=== PATIENT | female | born 1945 | race Caucasian/White ===

== ENCOUNTER → 2016-07-15 | Outpatient (CLI) | payer OTHER ==
[~2016-07-15] MED LIST: APIX1TAB3 PO; B COTAB PO; CRDCD180 PO; FLEC100T21 PO; IBUP-103 PO; MCR5 PO; MISCCAP55 PO; PRAV20TA PO; RANI150T3 PO
[2016-07-15 18:01] LABS: BLOOD UREA NITROGEN 21 mg/dl (7-18); BUN/CREATININE RATIO 18.7 (10-20); CALCIUM 8.8 mg/dl (8.5-10.1); CARBON DIOXIDE 22 mmol/L (21-32); CHLORIDE 109 mmol/L (98-107); GLUCOSE 135 mg/dl (70-99); POTASSIUM 3.7 mmol/L (3.5-5.1); SODIUM 142 mmol/L (136-145); URIC ACID 3.8 mg/dl (2.6-7.2)
[2016-07-15 18:03] LABS: PHOSPHORUS 2.6 mg/dl (2.5-4.9)
[2016-07-15 18:05] LABS: HEMATOCRIT 39.4 % (37-47); MEAN CELL VOLUME 83.5 fL (80-100); MEAN CORPUSCULAR HEMOGLOBIN 28.4 pg (25-34); MEAN PLATELET VOLUME 9.9 fL (7.4-10.4); PLATELET COUNT 213 K/uL (130-400); RED BLOOD COUNT 4.72 M/uL (4.2-5.4); WHITE BLOOD COUNT 10.49 K/uL (4.8-10.8)
== END | disposition home or self-care (01) ==
LOC: C.LABMFLN 11:51
PROVIDERS: ATTEND Internal Medicine Nephrology
DX: N17.9 Acute kidney failure, unspecified (principal)

== ENCOUNTER → 2016-07-27 | Outpatient (CLI) | payer OTHER ==
[2016-07-27 13:37] LABS: URINE APPEARANCE CLEAR (CLEAR); URINE BILIRUBIN NEG (NEG); URINE COLOR YELLOW; URINE NITRITE NEG (NEG); URINE PH 5.5 (4.5-7.5); UROBILINOGEN NEG (NEG)
[2016-07-27 13:52] LABS: MANUAL MICROSCOPIC REQUIRED? NO; REVIEW REQ? NO; URINE PROTIEN/CREAT RATIO 0.3 (0-0.2); URINE TOTAL PROTEIN 21.3 mg/dl (0-11.9)
== END | disposition home or self-care (01) ==
LOC: C.LABMFLN 10:44
PROVIDERS: ATTEND Internal Medicine Nephrology
DX: N17.9 Acute kidney failure, unspecified (principal)

== ENCOUNTER → 2016-08-03 | Outpatient (CLI) | payer OTHER ==
[2016-08-03 17:45] LABS: BLOOD UREA NITROGEN 18 mg/dl (7-18); BUN/CREATININE RATIO 14.6 (10-20); CALCIUM 8.8 mg/dl (8.5-10.1); CARBON DIOXIDE 28 mmol/L (21-32); CHLORIDE 107 mmol/L (98-107); GLUCOSE 214 mg/dl (70-99); PHOSPHORUS 2.6 mg/dl (2.5-4.9); POTASSIUM 4.1 mmol/L (3.5-5.1); SODIUM 144 mmol/L (136-145)
== END | disposition home or self-care (01) ==
LOC: C.LABMFLN 08:11
PROVIDERS: ATTEND Internal Medicine Nephrology
DX: N17.9 Acute kidney failure, unspecified (principal)

== ENCOUNTER → 2016-10-13 | Outpatient (CLI) | payer OTHER ==
[2016-10-13 13:39] LABS: BLOOD UREA NITROGEN 17 mg/dl (7-18); CARBON DIOXIDE 30 mmol/L (21-32); CHLORIDE 105 mmol/L (98-107); GLUCOSE 291 mg/dl (70-99); PHOSPHORUS 2.4 mg/dl (2.5-4.9); POTASSIUM 3.9 mmol/L (3.5-5.1); SODIUM 141 mmol/L (136-145)
[2016-10-13 13:49] LABS: ESTIMATED AVERAGE GLUCOSE 209 mg/dl; HA1C FLAG Normal (Normal)
== END | disposition home or self-care (01) ==
LOC: C.LABMFLN 07:54
PROVIDERS: ATTEND Family Medicine
DX: E11.22 Type 2 diabetes mellitus with diabetic chronic kidney disease (principal); N18.3 Chronic kidney disease, stage 3 (moderate)

== ENCOUNTER → 2016-10-21 | Outpatient (CLI) | payer OTHER ==
[2016-10-21 19:08] LABS: BLOOD UREA NITROGEN 18 mg/dl (7-18); BUN/CREATININE RATIO 16.4 (10-20); CALCIUM 9.1 mg/dl (8.5-10.1); CARBON DIOXIDE 26 mmol/L (21-32); CHLORIDE 110 mmol/L (98-107); GLUCOSE 158 mg/dl (70-99); PHOSPHORUS 2.9 mg/dl (2.5-4.9); POTASSIUM 3.9 mmol/L (3.5-5.1); SODIUM 143 mmol/L (136-145)
== END | disposition home or self-care (01) ==
LOC: C.LABMFLN 09:27
PROVIDERS: ATTEND Family Medicine
DX: I10 Essential (primary) hypertension (principal)

== ENCOUNTER → 2017-01-12 | Outpatient (CLI) | payer OTHER ==
[2017-01-12 13:26] LABS: BLOOD UREA NITROGEN 21 mg/dl (7-18); BUN/CREATININE RATIO 19.2 (10-20); CALCIUM 8.9 mg/dl (8.5-10.1); CARBON DIOXIDE 27 mmol/L (21-32); CHLORIDE 110 mmol/L (98-107); GLUCOSE 131 mg/dl (70-99); POTASSIUM 4.3 mmol/L (3.5-5.1); SODIUM 142 mmol/L (136-145)
[2017-01-12 13:27] LABS: PHOSPHORUS 2.3 mg/dl (2.5-4.9)
[2017-01-12 13:54] LABS: ESTIMATED AVERAGE GLUCOSE 166 mg/dl; HA1C FLAG Normal (Normal)
== END | disposition home or self-care (01) ==
LOC: C.LABMFLN 09:22
PROVIDERS: ATTEND Family Medicine
DX: N18.3 Chronic kidney disease, stage 3 (moderate) (principal); E11.9 Type 2 diabetes mellitus without complications

== ENCOUNTER → 2017-04-19 | Outpatient (CLI) | payer OTHER ==
[2017-04-19 18:07] LABS: BLOOD UREA NITROGEN 20 mg/dl (7-18); BUN/CREATININE RATIO 15.7 (10-20); CALCIUM 8.9 mg/dl (8.5-10.1); CARBON DIOXIDE 28 mmol/L (21-32); CHLORIDE 109 mmol/L (98-107); GLUCOSE 192 mg/dl (70-99); POTASSIUM 4.2 mmol/L (3.5-5.1); SODIUM 142 mmol/L (136-145)
[2017-04-19 18:18] LABS: PHOSPHORUS 2.7 mg/dl (2.5-4.9)
[2017-04-20 07:44] LABS: ESTIMATED AVERAGE GLUCOSE 171 mg/dl; HA1C FLAG Normal (Normal)
== END | disposition home or self-care (01) ==
LOC: C.LABMFLN 14:27
PROVIDERS: ATTEND Physician Assistant
DX: I10 Essential (primary) hypertension (principal); E11.9 Type 2 diabetes mellitus without complications; N17.9 Acute kidney failure, unspecified

== ENCOUNTER → 2017-07-26 | Outpatient (CLI) | payer OTHER ==
[2017-07-26 12:42] LABS: BASO % 0.6 %; BASO ABS # 0.05 K/uL (0-0.2); EOS % 1.9 %; EOS ABS # 0.17 K/uL (0-0.5); HEMOGLOBIN 12.6 g/dL (12.0-16.0); IG# 0.04 K/uL (0.00-0.02); LYMPH % 19.4 %; LYMPH ABS # 1.76 K/uL (1.2-3.4); MEAN CELL VOLUME 84.3 fL (80-100); MEAN CORPUSCULAR HEMOGLOBIN 27.9 pg (25-34); MEAN CORPUSCULAR HGB CONC 33.2 g/dl (32-36); MEAN PLATELET VOLUME 10.1 fL (7.4-10.4); MONO % 9.2 %; MONO ABS # 0.83 K/uL (0.11-0.59); NEUT % 68.5 %; NEUT ABS # 6.22 K/uL (1.4-6.5); PLATELET COUNT 196 K/uL (130-400); RED CELL DISTRIBUTION WIDTH CV 14.2 % (11.5-14.5); RED CELL DISTRIBUTION WIDTH SD 43.9 fL (36.4-46.3); WHITE BLOOD COUNT 9.07 K/uL (4.8-10.8)
[2017-07-26 13:09] LABS: HEMOGLOBIN A1C 7.9 % (4.5-5.6)
[2017-07-26 13:10] LABS: ALBUMIN 3.4 gm/dl (3.4-5.0); ALT/SGPT 17 U/L (12-78); AST/SGOT 9 U/L (15-37); BLOOD UREA NITROGEN 20 mg/dl (7-18); CALCIUM 8.9 mg/dl (8.5-10.1); CARBON DIOXIDE 26 mmol/L (21-32); CHOLESTEROL 147 mg/dl (0-200); CREATININE 1.07 mg/dl (0.60-1.20); GLUCOSE 154 mg/dl (70-99); POTASSIUM 3.9 mmol/L (3.5-5.1); SODIUM 140 mmol/L (136-145); TOTAL PROTEIN 6.7 gm/dl (6.4-8.2)
[2017-07-26 13:21] LABS: ALKALINE PHOSPHATASE 78 U/L (45-117); LDL CHOLESTEROL CALCULATED 84 mg/dl
== END | disposition home or self-care (01) ==
LOC: C.LABMFLN 10:31
PROVIDERS: ATTEND Family Medicine
DX: E11.22 Type 2 diabetes mellitus with diabetic chronic kidney disease (principal); I48.0 Paroxysmal atrial fibrillation; N18.3 Chronic kidney disease, stage 3 (moderate); E78.00 Pure hypercholesterolemia, unspecified

== ENCOUNTER 2017-09-09 10:51 | Inpatient (IN) | payer OTHER ==
[~2017-09-09] VITALS: Ht 157.5 cm; Wt 91.8 kg
[~2017-09-09 10:51] MED LIST changes: -PRAV20TA PO; -RANI150T3 PO
--- NOTE | 2017-09-09 11:09 | EMERGENCY ROOM VISIT NOTE ---
History Report prepared by Romel: Yann Gonzales Under the Supervision of: Dr. Raudel Bhandari D.O. First contact with patient: 11:00 Chief Complaint: ILLNESS Stated Complaint: NOT FEELING WELL History of Present Illness The patient is a 72 year old female who presents to the Emergency Room with complaints of an unusual chest discomfort that first onset last night. The patient states that she felt generally unwell last night which included feeling "bloated" with pain in her back. The pain in her chest is described as a "heaviness." The patient noted that she has a history of acid reflux, and many of these symptoms feel similar to those previous episodes. The chest heaviness is unusual. She did feel nauseous last night, but did not vomit. She has a history of atrial fibrillation, but no myocardial infarctions. Source of History: patient Onset: Last night Position: chest Quality: other (Heaviness) Associated Symptoms: + nausea, + back pain, No vomiting Review of Systems See HPI for pertinent positives & negatives. A total of 10 systems reviewed and were otherwise negative. Past Medical & Surgical Medical Problems: (1) Atrial fibrillation with RVR (2) Chest pain (3) History of cardioversion Surgical Problems: (1) History of section Family History Diabetes mellitus FHx: heart disease Hypertension Social History Smoking Status: Never Smoker Alcohol Use: none Drug Use: none Marital Status: Housing Status: lives with family Occupation Status: unemployed Current/Historical Medications Scheduled Apixaban (Eliquis), 5 MG PO BID Cyanocobalamin (Vitamin B-12), 500 MCG PO DAILY Diltiazem HCl Coated Beads (Diltiazem HCl ER), 240 MG PO DAILY Flecainide (Tambocor), 100 MG PO BID Furosemide (Lasix), 20 MG PO EDEMA Garlic (Garlic), 400 MG PO DAILY Glipizide (Glucotrol), 10 MG PO AMPM Losartan Potassium (Cozaar), 100 MG PO DAILY Metformin Hcl (Glucophage), 500 MG PO BIDM Nutritional Supplements (Grapeseed Extract), 1 CAP PO DAILY Pravastatin (Pravachol ), 20 MG PO HS Ranitidine Hcl (Zantac), 150 MG PO HS Sitagliptin (Januvia), 50 MG PO DAILY [Menatetreone], 3 TABS PO DAILY Allergies Coded Allergies: Acetaminophen (Verified Allergy, Unknown, ., 3/2/18) Propoxyphene (Verified Allergy, Unknown, Nausea, 09/09/17) Uncoded Allergies: UNKNOWN ANITBIOTICS (Allergy, Unknown, ., 10/18/11) Physical Exam Vital Signs Date Time Temp Pulse Resp B/P (MAP) Pulse Ox O2 Delivery O2 Flow Rate FiO2 09/09/17 12:51 75 24 214/79 95 Room Air 09/09/17 11:16 78 09/09/17 10:55 36.8 85 17 196/94 92 Room Air Physical Exam GENERAL: Patient is awake, alert, and in no acute distress. Patient is resting comfortably and showing no signs of anxiety EYES: The conjunctivae are clear. The pupils are round and reactive. EARS, NOSE, MOUTH AND THROAT: The nose is without any evidence of any deformity. Mucous membranes are moist tongue is midline NECK: The neck is nontender and supple. RESPIRATORY: Normal respiratory effort is noted there is no evidence of wheezing rhonchi or rales CARDIOVASCULAR: Regular rate and rhythm noted to auscultation, systolic murmur appreciated. GASTROINTESTINAL: The abdomen is soft. Bowel sounds are present in all quadrants. Abdomen is nontender MUSCULOSKELETAL/EXTREMITIES: There is no evidence of gross deformity full range of motion is noted in the hips and shoulders SKIN: There is no obvious evidence of any rash. There are no petechiae, pallor or cyanosis noted. NEUROLOGIC: Patient is awake alert and oriented x3 Medical Decision & Procedures ER Provider Diagnostic Interpretation: Radiology results as stated below per my review and radiologist interpretation: CHEST ONE VIEW PORTABLE CLINICAL HISTORY: ABDOMINAL PAIN/GI pain COMPARISON STUDY: 06/23/2015 FINDINGS: Chronic bibasilar atelectatic change. Mild stable cardiomegaly. Lungs otherwise are clear. No evidence of pneumothorax. IMPRESSION: Chronic bibasilar atelectasis. Otherwise negative study. The above report was generated using voice recognition software. It may contain grammatical, syntax or spelling errors. Electronically signed by: Nehemias Alfaro M.D. 09/09/2017 11:37 AM Dictated Date/Time: 09/09/2017 11:36 AM Laboratory Results 09/09/17 11:15 Red Blood Count 4.66, Mean Corpuscular Volume 83.0, Mean Corpuscular Hemoglobin 28.1, Mean Corpuscular Hemoglobin Concent 33.9, Mean Platelet Volume 9.7, Neutrophils (%) (Auto) 72.5, Lymphocytes (%) (Auto) 16.4, Monocytes (%) (Auto) 8.5, Eosinophils (%) (Auto) 1.7, Basophils (%) (Auto) 0.4, Neutrophils # (Auto) 7.16, Lymphocytes # (Auto) 1.62, Monocytes # (Auto) 0.84, Eosinophils # (Auto) 0.17, Basophils # (Auto) 0.04 09/09/17 11:15 Test 09/09/17 11:15 09/09/17 11:20 White Blood Count 9.88 K/uL (4.8-10.8) Red Blood Count 4.66 M/uL (4.2-5.4) Hemoglobin 13.1 g/dL (12.0-16.0) Hematocrit 38.7 % (37-47) Mean Corpuscular Volume 83.0 fL (80-100) Mean Corpuscular Hemoglobin 28.1 pg (25-34) Mean Corpuscular Hemoglobin Concent 33.9 g/dl (32-36) Platelet Count 207 K/uL (130-400) Mean Platelet Volume 9.7 fL (7.4-10.4) Neutrophils (%) (Auto) 72.5 % Lymphocytes (%) (Auto) 16.4 % Monocytes (%) (Auto) 8.5 % Eosinophils (%) (Auto) 1.7 % Basophils (%) (Auto) 0.4 % Neutrophils # (Auto) 7.16 K/uL (1.4-6.5) Lymphocytes # (Auto) 1.62 K/uL (1.2-3.4) Monocytes # (Auto) 0.84 K/uL (0.11-0.59) Eosinophils # (Auto) 0.17 K/uL (0-0.5) Basophils # (Auto) 0.04 K/uL (0-0.2) RDW Standard Deviation 43.9 fL (36.4-46.3) RDW Coefficient of Variation 14.4 % (11.5-14.5) Immature Granulocyte % (Auto) 0.5 % Immature Granulocyte # (Auto) 0.05 K/uL (0.00-0.02) Prothrombin Time 10.0 SECONDS (9.0-12.0) Prothromb Time International Ratio 1.0 (0.9-1.1) Activated Partial Thromboplast Time 27.1 SECONDS (21.0-31.0) Partial Thromboplastin Ratio 1.0 Anion Gap 7.0 mmol/L (3-11) Est Creatinine Clear Calc Drug Dose 42.8 ml/min Estimated GFR () 50.9 Estimated GFR (Non- 43.9 BUN/Creatinine Ratio 15.9 (10-20) Calcium Level 9.1 mg/dl (8.5-10.1) Total Bilirubin 0.3 mg/dl (0.2-1) Direct Bilirubin 0.1 mg/dl (0-0.2) Aspartate Amino Transf (AST/SGOT) 7 U/L (15-37) Alanine Aminotransferase (ALT/SGPT) 18 U/L (12-78) Alkaline Phosphatase 81 U/L (45-117) Total Creatine Kinase 42 U/L (26-192) Creatine Kinase MB 1.2 ng/ml (0.5-3.6) Creatine Kinase MB Ratio 2.9 (0-3.0) Troponin I 0.050 ng/ml (0-0.045) Total Protein 7.2 gm/dl (6.4-8.2) Albumin 3.6 gm/dl (3.4-5.0) Lipase 250 U/L (73-393) Urine Color YELLOW Urine Appearance CLEAR (CLEAR) Urine pH 5.0 (4.5-7.5) Urine Specific [place] 1.007 (1.000-1.030) Urine Protein NEG (NEG) Urine Glucose (UA) NEG (NEG) Urine Ketones NEG (NEG) Urine Occult Blood NEG (NEG) Urine Nitrite NEG (NEG) Urine Bilirubin NEG (NEG) Urine Urobilinogen NEG (NEG) Urine Leukocyte Esterase NEG (NEG) Laboratory results per my review. Medications Administered Medications (Trade) Dose Ordered Sig/Ross Route Start Time Stop Time Status Last Admin Dose Admin Aspirin (Aspirin Chew) 324 mg NOW STAT PO 09/09/17 12:27 09/09/17 12:28 DC 09/09/17 12:54 324 MG Al Hydroxide/Mg Hydroxide (Maalox Susp) 30 ml NOW STAT PO 09/09/17 12:27 09/09/17 12:28 DC 09/09/17 12:54 30 ML ECG Per My Interpretation Indication: chest pain Rate (beats per minute): 72 Rhythm: normal sinus Findings: Q waves (Inferior), ST depression (High Lateral ), other ( Poorbaseline, No PVCs, ) Comparison ECG Date: 06/25/2015 Change: REPEAT SHOWS: NSR 73, NO PVCs, Ash Later ST depression, Inferior Q-waves, No change form initial. ED Course 1101: The patient was evaluated in room C6. A complete history and physical examination were performed. 1227: Ordered Maalox Susp 30 mL PO, Aspirin 324 mg PO. 1249: I discussed the case with Dr. Josh Lambert. he will evaluate the patient for further treatment. 1340: Ordered Heparin Sodium /Dextrose 1. 1430: Ordered Nitroglycerin 1 inch EXT. Medical Decision Differential diagnosis: Etiologies such as cardiac ischemia, aortic dissection, pulmonary embolism, pneumonia, pneumothorax, musculoskeletal, infections, pericarditis, myocarditis , esophageal rupture, gastrointestinal, as well as others were entertained. Nursing notes reviewed. The patient is a 72-year-old female who presented to the emergency department for an evaluation of discomfort in her epigastric region as well as her chest. The patient had significantly improvement of her symptoms. She thought that could be consistent with reflux although she does have an abnormal EKG. Her EKG does not appear to be significantly changed from previous. Her initial cardiac biomarkers did show a mild elevation in her troponin. I discussed the patient's laboratory and radiographic studies with her and her significant other. I also discussed the limitations of the emergency department workup for chest pain with him. Given the patient's age and comorbidities I discussed her case with the on-call [facility] hospitalist. They have agreed to evaluate patient in the emergency department for further management and disposition. Medication Reconcilliation Current Medication List: was personally reviewed by me Blood Pressure Screening Patient's blood pressure: Elevated blood pressure Referred to Hospitalist Consults Time Called: [phone] Consulting Physician: Dr. Josh Lambert Returned Call: [phone] I discussed the case with Dr. Josh Lambert. he will evaluate the patient for further treatment. Impression Primary Impression: Substernal chest pain Additional Impressions: Elevated troponin Abnormal EKG Scribe Attestation The scribe's documentation has been prepared under my direction and personally reviewed by me in its entirety. I confirm that the note above accurately reflects all work, treatment, procedures, and medical decision making performed by me. Departure Information Dispostion Being Evaluated By Hospitalist Prescriptions Diltiazem HCl Coated Beads (Diltiazem HCl ER) 240 Mg Tab 240 MG PO DAILY, #30 TAB Prov: Rj Moreno MD 09/09/17 Referrals Cinthia Rhoades M.D. (PCP) Patient Instructions My [facility] Problem Qualifiers
[2017-09-09] MEDS ORDERED: LOSA1TAB38 PO (11:27)
[2017-09-09] MEDS ORDERED: DILT1TAB50 PO ×2 (11:27→13:19)
--- NOTE | 2017-09-09 11:38 | DIAGNOSTIC IMAGING REPORT ---
CHEST ONE VIEW PORTABLE CLINICAL HISTORY: ABDOMINAL PAIN/GI pain COMPARISON STUDY: 06/23/2015 FINDINGS: Chronic bibasilar atelectatic change. Mild stable cardiomegaly. Lungs otherwise are clear. No evidence of pneumothorax. IMPRESSION: Chronic bibasilar atelectasis. Otherwise negative study. The above report was generated using voice recognition software. It may contain grammatical, syntax or spelling errors. Electronically signed by: Nehemias Alfaro M.D. 09/09/2017 11:37 AM Dictated Date/Time: 09/09/2017 11:36 AM
[2017-09-09 11:43] LABS: BASO % 0.4 %; BASO ABS # 0.04 K/uL (0-0.2); EOS % 1.7 %; EOS ABS # 0.17 K/uL (0-0.5); HEMATOCRIT 38.7 % (37-47); HEMOGLOBIN 13.1 g/dL (12.0-16.0); IG# 0.05 K/uL (0.00-0.02); LYMPH % 16.4 %; LYMPH ABS # 1.62 K/uL (1.2-3.4); MEAN CORPUSCULAR HEMOGLOBIN 28.1 pg (25-34); MEAN CORPUSCULAR HGB CONC 33.9 g/dl (32-36); MEAN PLATELET VOLUME 9.7 fL (7.4-10.4); MONO % 8.5 %; MONO ABS # 0.84 K/uL (0.11-0.59); NEUT % 72.5 %; NEUT ABS # 7.16 K/uL (1.4-6.5); PLATELET COUNT 207 K/uL (130-400); RED CELL DISTRIBUTION WIDTH CV 14.4 % (11.5-14.5); RED CELL DISTRIBUTION WIDTH SD 43.9 fL (36.4-46.3); WHITE BLOOD COUNT 9.88 K/uL (4.8-10.8)
[2017-09-09 11:54] LABS: PTT PATIENT 27.1 SECONDS (21.0-31.0)
[2017-09-09 12:19] LABS: ALBUMIN 3.6 gm/dl (3.4-5.0); CALCIUM 9.1 mg/dl (8.5-10.1); CKMB 1.2 ng/ml (0.5-3.6); CREATININE 1.22 mg/dl (0.60-1.20); TOTAL PROTEIN 7.2 gm/dl (6.4-8.2)
[2017-09-09 12:22] LABS: POTASSIUM 3.9 mmol/L (3.5-5.1)
[2017-09-09] MEDS ORDERED: ALUMINUM/MAGNESIUM SUSP 30 ML UDC PO STA (12:27)
[2017-09-09] MEDS ORDERED: ASPIRIN 324 MG CHEW PO STA (12:27)
--- NOTE | 2017-09-09 13:27 | History and Physical ---
History & Physical Date & Time of Service: Sep 09, 2017 at 13:09 Chief Complaint: Not Feeling Well Primary Care Physician: Ovidio Samayoa M.D. History of Present Illness Source: patient 72yo female with history of long-standing a. fib who presents with various symptoms including abdominal bloating, dyspnea, burping, heaviness in her chest , "burning" sensation in between the scapula, as well as some nausea that started about midnight. These symptoms awoke her from her sleep. The burping and bloating sensation in her abdomen were the worst symptoms. She took some tums with partial relief of the GI symptoms. For dinner last pm she had baked beans, hamburger, and potato salad at 630pm. She was restless throughout the night and awoke again about 4am. At 4am she was dyspneic and actually got out of bed and propped herself up on pillows on the couch to be able to sleep. About 0645am she got up for the day, ate breakfast, and "felt ok." Eating breakfast didn't bother her symptoms. She tried to sweep up around the house but didn't feel good. She got short of breath doing this task. She had associated heaviness in her chest with sweeping the floor. When she stopped the sweeping her symptoms improved. In the last 1-2 months she has had significant fatigue - much more so than usual. She has noted dyspnea with going up a flight of steps which is not typical for her. Past Medical/Surgical History PMH: 1. atrial fibrillation 2. T2DM 3. HTN 4. GERD PSH: 1. multiple cardioversions for a. fib 2. tonsillectomy 3. c/s x 2 4. cataract extraction 5. 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) Immunizations History of Influenza Vaccine: No History of Tetanus Vaccine?: Unknown Tetanus Immunization Date: Sep 17, 2011 History of Pneumococcal: No History of Hepatitis B Vaccine: No Allergies Coded Allergies: Acetaminophen (Verified Allergy, Unknown, ., 09/09/17) Propoxyphene (Verified Allergy, Unknown, Nausea, 09/09/17) Uncoded Allergies: UNKNOWN ANITBIOTICS (Allergy, Unknown, ., 10/18/11) Home Medications Scheduled Apixaban (Eliquis), 5 MG PO BID Cyanocobalamin (Vitamin B-12), 500 MCG PO DAILY Diltiazem HCl Coated Beads (Diltiazem HCl ER), 240 MG PO DAILY Flecainide (Tambocor), 100 MG PO BID Furosemide (Lasix), 20 MG PO EDEMA Garlic (Garlic), 400 MG PO DAILY Glipizide (Glucotrol), 10 MG PO AMPM Losartan Potassium (Cozaar), 100 MG PO DAILY Metformin Hcl (Glucophage), 500 MG PO BIDM Nutritional Supplements (Grapeseed Extract), 1 CAP PO DAILY Pravastatin (Pravachol ), 20 MG PO HS Ranitidine Hcl (Zantac), 150 MG PO HS Sitagliptin (Januvia), 50 MG PO DAILY [Menatetreone], 3 TABS PO DAILY Review of Systems Constitutional: + weakness, + fatigue, No fever, No chills, No weight loss Eyes: No worsening of vision ENT: No hearing loss, No nasal symptoms, No sore throat, No trouble swallowing Respiratory: + cough (dry, occasional), + shortness of breath, + dyspnea on exertion, No sputum, No wheezing Cardiovascular: + chest pain (see HPI), + PND, + edema (occasional ), + palpitations (only with laying on left side), No orthopnea Abdomen: + pain, + nausea, No vomiting, No diarrhea, No GI bleeding Musculoskeletal: No joint pain, No muscle pain Genitourinary - Female: No dysuria Neurologic: No numbness/tingling Psychiatric: No depression symptoms, No anxiety Endocrine: No excessive thirst Hematologic / Lymphatic: No abnormal bleeding/bruising Integumentary: No rash Physical Exam Vital Signs Date Time Temp Pulse Resp B/P (MAP) Pulse Ox O2 Delivery O2 Flow Rate FiO2 09/09/17 12:51 75 24 214/79 95 Room Air 09/09/17 11:16 78 09/09/17 10:55 36.8 85 17 196/94 92 Room Air General Appearance: no apparent distress, + obese Head: normocephalic, atraumatic Eyes: PERRL, + pertinent finding (lens implants b/l) ENT: TMs normal (except left TM not seen due to cerumen), pharynx normal Neck: supple, no adenopathy, thyroid normal, no JVD, no carotid bruits, trachea midline Respiratory/Chest: chest non-tender, lungs clear, normal breath sounds, no respiratory distress, no accessory muscle use Cardiovascular: regular rate, rhythm, no gallop, + systolic murmur (2/6 RUSB with minor radiation to the right carotid region) Abdomen/GI: normal bowel sounds, non tender, soft, no organomegaly, no pulsatile mass Back: normal inspection, no muscle spasm, + pertinent finding (no tenderness with palpation of mid-thoracic region between the scapula) Extremities/Musculoskelatal: + pedal edema (trace b/l ) Neurologic/Psych: no motor/sensory deficits, alert, normal mood/affect, normal reflexes, oriented x 3 Skin: no rash Lymphatic: no adenopathy (cervical ) Diagnostics Laboratory Results Results Past 24 Hours Test 09/09/17 11:15 09/09/17 11:20 Range/Units White Blood Count 9.88 4.8-10.8 K/uL Red Blood Count 4.66 4.2-5.4 M/uL Hemoglobin 13.1 12.0-16.0 g/dL Hematocrit 38.7 37-47 % Mean Corpuscular Volume 83.0 80-100 fL Mean Corpuscular Hemoglobin 28.1 25-34 pg Mean Corpuscular Hemoglobin Concent 33.9 32-36 g/dl Platelet Count 207 130-400 K/uL Mean Platelet Volume 9.7 7.4-10.4 fL Neutrophils (%) (Auto) 72.5 % Lymphocytes (%) (Auto) 16.4 % Monocytes (%) (Auto) 8.5 % Eosinophils (%) (Auto) 1.7 % Basophils (%) (Auto) 0.4 % Neutrophils # (Auto) 7.16 1.4-6.5 K/uL Lymphocytes # (Auto) 1.62 1.2-3.4 K/uL Monocytes # (Auto) 0.84 0.11-0.59 K/uL Eosinophils # (Auto) 0.17 0-0.5 K/uL Basophils # (Auto) 0.04 0-0.2 K/uL RDW Standard Deviation 43.9 36.4-46.3 fL RDW Coefficient of Variation 14.4 11.5-14.5 % Immature Granulocyte % (Auto) 0.5 % Immature Granulocyte # (Auto) 0.05 0.00-0.02 K/uL Prothrombin Time 10.0 9.0-12.0 SECONDS Prothromb Time International Ratio 1.0 0.9-1.1 Activated Partial Thromboplast Time 27.1 21.0-31.0 SECONDS Partial Thromboplastin Ratio 1.0 Sodium Level 140 136-145 mmol/L Potassium Level 3.9 3.5-5.1 mmol/L Chloride Level 106 98-107 mmol/L Carbon Dioxide Level 27 21-32 mmol/L Anion Gap 7.0 3-11 mmol/L Blood Urea Nitrogen 19 7-18 mg/dl Creatinine 1.22 0.60-1.20 mg/dl Est Creatinine Clear Calc Drug Dose 42.8 ml/min Estimated GFR () 50.9 Estimated GFR (Non- 43.9 BUN/Creatinine Ratio 15.9 10-20 Random Glucose 172 70-99 mg/dl Calcium Level 9.1 8.5-10.1 mg/dl Total Bilirubin 0.3 0.2-1 mg/dl Direct Bilirubin 0.1 0-0.2 mg/dl Aspartate Amino Transf (AST/SGOT) 7 15-37 U/L Alanine Aminotransferase (ALT/SGPT) 18 12-78 U/L Alkaline Phosphatase 81 45-117 U/L Total Creatine Kinase 42 26-192 U/L Creatine Kinase MB 1.2 0.5-3.6 ng/ml Creatine Kinase MB Ratio 2.9 0-3.0 Troponin I 0.050 0-0.045 ng/ml Total Protein 7.2 6.4-8.2 gm/dl Albumin 3.6 3.4-5.0 gm/dl Lipase 250 73-393 U/L Urine Color YELLOW Urine Appearance CLEAR CLEAR Urine pH 5.0 4.5-7.5 Urine Specific [place] 1.007 1.000-1.030 Urine Protein NEG NEG Urine Glucose (UA) NEG NEG Urine Ketones NEG NEG Urine Occult Blood NEG NEG Urine Nitrite NEG NEG Urine Bilirubin NEG NEG Urine Urobilinogen NEG NEG Urine Leukocyte Esterase NEG NEG Diagnostic Radiology cxr - IMPRESSION: Chronic bibasilar atelectasis. Otherwise negative study. EKG EKG - my reading - NSR, minimal nonspecific ST changes I & AVL - similar in appearance to EKG from [address] changes seen no a. fib or flutter Impression Assessment and Plan 72yo female with history of a. fib, HTN, hyperlipidemia, GERD, and obesity presenting with <24 hours of dyspnea, chest heaviness, pain in the back, nausea , and fatigue. Symptoms were worse with activity overnight & this am. She has a very strong family history of CAD. Initial troponin is minimally positive. 1. chest discomfort with positive troponin - concerning for unstable angina at the least; cannot r/o early/mild NSTEMI; obviously has multiple CAD risk factors. Fortunately she is chest-pain free at this time and there is no clinical evidence of CHF. I don't think her constellation of symptoms is due to gall bladder disease, GERD , etc. Plan - * tele status * will place on heparin (standard dose, no bolus - will use standard due to a. fib history); hold eliquis * aspirin 325mg given in the ER; then 81mg daily thereafter * continue statin agent * add beta cm (she has not had true allergy to such, but has been beta cm intolerant in the past -- fatigue, etc) * will use coreg (did not tolerate metoprolol) * serial troponins * nitropaste 1 inch q6h * cardiology consult with Dr. Link - will keep NPO in case she needs a procedure today * echocardiogram - assess LV function, wall motion, etc 2. h/o a. fib - in NSR at this time. Cont fleicanide. Cont diltiazem. Holding eliquis; will be on systemic heparin. 3. HTN - uncontrolled; adding nitropaste 1 inch q6h. Adding coreg. Continue all home meds. She will likely required adjustments of the regimen. Uncertain if #1 is causing the uncontrolled HTN (could be vice versa as well). 4. GERD - increase her zantac to 150mg BID. 5. obesity w/ BMI 36 6. hyperlipidemia - had lipids checked in 07/2017 and were stable. Reasonable to repeat them again in the AM. 7. uncontrolled T2DM - hold oral agents except for januvia; add lantus 10 units HS; add novolog with meals/bedtime (correction factor 35, carb ratio 1:12) . BSGs ac/hs. 8. CKD stage 3 - creatinine is at baseline. 9. FEN - lytes are stable; keep NPO just in case for any procedure today o/w AHA/T2DM diet; repeat BMP am. No fluids at this time. Advanced Directives Existing Advance Directive: No Resuscitation Status VTE Prophylaxis Will order VTE Prophylaxis: Yes Note total time about 70 minutes Additional Copies To Cinthia Rhoades M.D.; Ovidio Samayoa M.D.
[2017-09-09] MEDS ORDERED: HEPARIN IV LOW DOSE NO BOLUS SCH (13:40)
[2017-09-09] MEDS ORDERED: ONDANSETRON INJ 2 MG/ML 2 ML VIAL IV PRN (13:45)
[2017-09-09] MEDS ORDERED: MoRPHine SULFATE 4 MG/ML 1 ML CARP\\VIAL IV PRN (13:45)
[2017-09-09] MEDS ORDERED: NITROGLYCERIN 0.4 MG SL PER TAB CHARGE SL PRN (13:45)
[2017-09-09] MEDS ORDERED: MoRPHine SULFATE 2 MG/ML CARP IV PRN (13:45)
[2017-09-09] MEDS ORDERED: ALUMINUM/MAGNESIUM/SIMETH (MAALOX MAX) 30 ML UDC PO PRN (13:45)
[2017-09-09] MEDS ORDERED: MAGNESIUM HYDROXIDE SUSP 30 ML UDC PO PRN (13:45)
[2017-09-09] MEDS: NITROGLYCERIN 2% OINTMENT 30GM TUBE EXT SCH ×2 (13:50→21:32)
[2017-09-09] MEDS: HEPARIN 25,000 UNIT/500ML D5W 500 ML IV PRN ×2 (14:16→16:07)
[2017-09-09] MEDS ORDERED: HydrALAZINE HCL 20 MG/ML VIAL IV. STA (14:54)
[2017-09-09] MEDS ORDERED: CARVEDILOL 3.125 MG TAB PO STA (15:06)
[2017-09-09] MEDS ORDERED: GLUCOSE 40% GEL 15 GM TUBE PO PRN (15:15)
[2017-09-09] MEDS ORDERED: GLUCAGON FOR INJ 1 MG VIAL SQ PRN (15:15)
[2017-09-09] MEDS ORDERED: DEXTROSE 50% 50 ML SYR IV PRN (15:15)
[2017-09-09] MEDS ORDERED: GLUCOSE 10 TABS/TUBE PO PRN (15:15)
[2017-09-09 15:29] VITALS: BP 185/85; PULSE 69; TEMP 36.7; O2SAT 94
[2017-09-09 15:30] VITALS: BP 185/85; PULSE 69; TEMP 36.7; O2SAT 95; Ht 157.5 cm; Wt 91.8 kg
[2017-09-09] MEDS: INSULIN ASPART 100 UNITS/ML 3 ML PEN SC SCH ×2 (16:15→21:00)
[2017-09-09 17:24] VITALS: BP 178/74; PULSE 64
[2017-09-09 19:18] VITALS: BP 165/72; PULSE 68; TEMP 36.8; O2SAT 92
--- NOTE | 2017-09-09 20:07 | Cardiology Consultation ---
Cardiology Consultation Date of Consultation: Sep 09, 2017. Requesting Physician: Josh Reason for Consultation: Chest Pain Pt evaluation today including: conversation w/ patient, physical exam, chart review, lab review, review of studies, review of inpatient medication list, conversation w/ attending History of Present Illness The patient is a 72-year-old woman without a known history of coronary disease who experienced an episode of chest discomfort last evening. Patient went to bed after eating dinner and initially had symptoms epigastric discomfort. This included eructation. This later generalized to include some pain between her scapula and some discomfort in the precordial area. The symptoms appear to have waxed and waned in severity over the course of the evening. Patient could not lie flat due to discomfort. She attempted to lay on her stomach but this made worse as well. Eventually she was able to get some sleep in this morning her symptoms were much improved. However, after some exertion, specifically sweeping, she noticed recurrence of chest discomfort. She discontinued her activity in the symptoms resolved. She has not had any recurrence since that time. She has been ambulatory around her hospital room without recurrent symptoms. In general, she is a very sedentary individual. She keeps busy around the house with cooking and cleaning chores but rarely does any significant walking or exertion. She generally is not limited by dyspnea however. She has not report symptoms of chest discomfort. She is able to ascend 2 flights of stairs at her house without significant symptoms. She does have a history of atrial fibrillation. She recalls her last episode being over 2 years ago. Generally speaking she feels poorly when she has atrial fibrillation and will notice a rapid pulse. She has not noticed this recently. She has not had other symptoms recently such as dizziness or lightheadedness. She has not noticed any lower extremity edema or increasing abdominal girth. She has not suffered syncope. Past Medical/Surgical History Atrial fibrillation Hypertension Cataracts Carotid artery disease Renal insufficiency stage III Gastroesophageal reflux Hyperlipidemia Diabetes mellitus type 2 Past surgical history None Family History Diabetes mellitus FHx: heart disease Hypertension Noncontributory given her advanced age Social History Smoking Status: Never Smoker History of Alcohol Use: No Currently lives independently with her family Review of Systems Cardiac: + see HPI No recent constitutional symptoms such as fevers or chills. All Other Systems: Reviewed and Negative Allergies Coded Allergies: Acetaminophen (Verified Allergy, Unknown, ., 09/09/17) Propoxyphene (Verified Allergy, Unknown, Nausea, 09/09/17) Uncoded Allergies: UNKNOWN ANITBIOTICS (Allergy, Unknown, ., 10/18/11) Medications Current Inpatient Medications Medications (Trade) Dose Ordered Sig/Ross Route Start Time Stop Time Status Last Admin Dose Admin Nitroglycerin (Nitroglycerin 2% Oint) 1 inch Q6 EXT 09/09/17 14:30 10/09/17 14:29 09/09/17 13:50 1 INCH Nitroglycerin (Nitrostat Tab) 0.4 mg Q5M PRN SL 09/09/17 13:45 Morphine Sulfate (MoRPHine SULFATE INJ) 1 mg Q5M PRN IV 09/09/17 13:45 09/23/17 13:44 Morphine Sulfate (MoRPHine SULFATE INJ) 2 mg Q5M PRN IV 09/09/17 13:45 09/23/17 13:44 Aspirin (Ecotrin Tab) 81 mg QAM PO 09/10/17 09:00 10/10/17 08:59 Al Hydrox/Mg Hydrox/Simethicone (Maalox Max Susp) 15 ml Q4H PRN PO 09/09/17 13:45 10/09/17 13:44 Magnesium Hydroxide (Milk Of Magnesia Susp) 30 ml Q12H PRN PO 09/09/17 13:45 10/09/17 13:44 Ondansetron HCl (Zofran Inj) 4 mg Q6H PRN IV 09/09/17 13:45 10/09/17 13:44 Cyanocobalamin (Vitamin B-12 Tab) 500 mcg DAILY PO 09/10/17 09:00 10/10/17 08:59 Flecainide Acetate (Tambocor Tab) 100 mg BID PO 09/09/17 21:00 10/09/17 20:59 Losartan Potassium (coZAAR TAB) 100 mg DAILY PO 09/10/17 09:00 10/10/17 08:59 Pravastatin Sodium (Pravachol Tab) 20 mg HS PO 09/09/17 21:00 10/09/17 20:59 Ranitidine HCl (zANTac TAB) 150 mg BID PO 09/09/17 21:00 10/09/17 20:59 Diltiazem HCl (Cardizem Cd Cap) 240 mg QAM PO 09/10/17 09:00 10/10/17 08:59 Sitagliptin Phosphate (Januvia Tab) 50 mg DAILY PO 09/10/17 09:00 10/10/17 08:59 Insulin Glargine (Lantus Solostar Pen) 10 units HS SC 09/09/17 21:00 10/09/17 20:59 Insulin Aspart (novoLOG ASPART) SLIDING SCALE G... ACHS SC 09/09/17 16:15 10/09/17 16:14 Carvedilol (Coreg Tab) 3.125 mg BID PO 09/09/17 21:00 10/09/17 20:59 Heparin Sodium/ Dextrose 500 ml @ 24 mls/hr [id number] PRN IV 09/09/17 14:15 10/09/17 14:14 09/09/17 16:07 24 MLS/HR Glucose (Glucose 40% Gel) 15-30 GRAMS 15 GRAMS... UD PRN PO 09/09/17 15:15 10/09/17 15:14 Glucose (Glucose Chew Tab) 4-8 Tablets 4 Tabl... UD PRN PO 09/09/17 15:15 10/09/17 15:14 Dextrose (Dextrose 50% 50ML Syringe) 25-50ML OF 50% DW IV FOR... UD PRN IV 09/09/17 15:15 10/09/17 15:14 Glucagon (Glucagon Inj) 1 mg UD PRN SQ 09/09/17 15:15 10/09/17 15:14 Physical Exam Vital Signs Past 12 Hours Date Time Temp Pulse Resp B/P (MAP) Pulse Ox O2 Delivery O2 Flow Rate FiO2 09/09/17 19:18 36.8 68 20 165/72 (103) 92 Room Air 09/09/17 17:24 64 178/74 (108) 09/09/17 15:30 36.7 69 18 185/85 95 Room Air 09/09/17 15:29 36.7 69 18 185/85 (118) 94 Room Air 09/09/17 14:54 66 22 193/70 95 09/09/17 12:51 75 24 214/79 95 Room Air 09/09/17 11:16 78 09/09/17 10:55 36.8 85 17 196/94 92 Room Air She is alert and oriented x3. Mood affect appear normal. She answered all questions appropriately. HEENT: Sclerae are anicteric. Pupils are equal and reactive to light and accommodation. Extraocular movements were intact. Neuro: Cranial nerves intact Neck: Examination of the submandibular region did not reveal any significant lymphadenopathy. Carotids are palpable bilaterally and free of bruits on auscultation. There was no evidence of jugular venous distention. The thyroid was not enlarged. Lungs: Lungs are clear to auscultation bilaterally. There are no rales wheezes or rhonchi. She has normal respiratory effort without use of accessory muscles. There is normal pulmonary excursion. Cardiac: The rhythm was regular. S1 and S2 were normal. Crescendo systolic murmur. The PMI was not markedly displaced on palpation. Abdomen: The abdomen was soft and nontender. Extremities: Patient has bilateral radial pulses that are equal in intensity. There is no evidence cyanosis or clubbing. There was no evidence of significant peripheral edema bilaterally. Skin: There are no rashes noted on examination today. Data Laboratory Results: Last 24 Hours Test 09/09/17 11:15 09/09/17 11:20 09/09/17 16:35 09/09/17 16:54 White Blood Count 9.88 K/uL Red Blood Count 4.66 M/uL Hemoglobin 13.1 g/dL Hematocrit 38.7 % Mean Corpuscular Volume 83.0 fL Mean Corpuscular Hemoglobin 28.1 pg Mean Corpuscular Hemoglobin Concent 33.9 g/dl Platelet Count 207 K/uL Mean Platelet Volume 9.7 fL Neutrophils (%) (Auto) 72.5 % Lymphocytes (%) (Auto) 16.4 % Monocytes (%) (Auto) 8.5 % Eosinophils (%) (Auto) 1.7 % Basophils (%) (Auto) 0.4 % Neutrophils # (Auto) 7.16 K/uL Lymphocytes # (Auto) 1.62 K/uL Monocytes # (Auto) 0.84 K/uL Eosinophils # (Auto) 0.17 K/uL Basophils # (Auto) 0.04 K/uL RDW Standard Deviation 43.9 fL RDW Coefficient of Variation 14.4 % Immature Granulocyte % (Auto) 0.5 % Immature Granulocyte # (Auto) 0.05 K/uL Prothrombin Time 10.0 SECONDS Prothromb Time International Ratio 1.0 Activated Partial Thromboplast Time 27.1 SECONDS Partial Thromboplastin Ratio 1.0 Sodium Level 140 mmol/L Potassium Level 3.9 mmol/L Chloride Level 106 mmol/L Carbon Dioxide Level 27 mmol/L Anion Gap 7.0 mmol/L Blood Urea Nitrogen 19 mg/dl Creatinine 1.22 mg/dl Est Creatinine Clear Calc Drug Dose 42.8 ml/min Estimated GFR () 50.9 Estimated GFR (Non- 43.9 BUN/Creatinine Ratio 15.9 Random Glucose 172 mg/dl Calcium Level 9.1 mg/dl Total Bilirubin 0.3 mg/dl Direct Bilirubin 0.1 mg/dl Aspartate Amino Transf (AST/SGOT) 7 U/L Alanine Aminotransferase (ALT/SGPT) 18 U/L Alkaline Phosphatase 81 U/L Total Creatine Kinase 42 U/L Creatine Kinase MB 1.2 ng/ml Creatine Kinase MB Ratio 2.9 Troponin I 0.050 ng/ml 0.084 ng/ml Total Protein 7.2 gm/dl Albumin 3.6 gm/dl Lipase 250 U/L Urine Color YELLOW Urine Appearance CLEAR Urine pH 5.0 Urine Specific Stanley 1.007 Urine Protein NEG Urine Glucose (UA) NEG Urine Ketones NEG Urine Occult Blood NEG Urine Nitrite NEG Urine Bilirubin NEG Urine Urobilinogen NEG Urine Leukocyte Esterase NEG Bedside Glucose 92 mg/dl Imaging: Chest x-ray was obtained at the time of admission which did not reveal any acute cardiopulmonary disease EKG: Normal sinus rhythm with poor R-wave progression of precordial leads concerning for old anterior myocardial infarction Telemetry reviewed: Normal sinus rhythm Echocardiogram performed 03/18/2016: Normal LV systolic function. Mild aortic stenosis. Mild aortic regurgitation. Mild mitral regurgitation. Mild left ventricular hypertrophy Assessment & Plan 1. Chest pain: Patient's symptoms of chest discomfort are certainly characteristic of cardiac ischemia. The initial symptoms abdominal discomfort with eructation could be seen with inferior ischemia. There was some positional nature to her symptoms. She certainly has risk factors for coronary disease to include hypertension, hyperlipidemia, age and diabetes. Her cardiac biomarkers are very mildly elevated. However, given her extended period of symptoms I would have expected a much higher result. I think it is very possible that her cardiac biomarker elevation is more related to significant hypertension rather than an ischemic event. I would agree with the current plan which is heparinization while we trend her markers. I think an echocardiogram may be helpful to delineate any new wall motion abnormalities. This would also allow us to assess her valvular heart disease. I agree with administration of the beta-cm as prescribed. I would think that if her biomarkers are not more elevated she could be a good candidate for noninvasive testing. I would hold her Eliquis while she is on heparin infusion. 2. Hypertension: Patient has significant hypertension. This may in fact be the etiology of her elevated cardiac biomarkers. I agree with administration of beta-cm, nitro paste and intermittent doses of hydralazine. Another good option would be a nitroglycerin infusion. If these measures fail to reduce her blood pressure significantly would advocate transfer to the intensive care unit for nitroprusside infusion. 3. Atrial fibrillation: Patient currently in sinus rhythm. No symptomatic episodes of atrial fibrillation for several years. She has been maintained on flecainide and diltiazem. I think stress testing in the absence of significant biomarker elevation would also be helpful to determine if continue flecainide use is safe in this 72-year-old woman. She is currently anticoagulated and should continue to be anticoagulated indefinitely. 4. Valvular heart disease: Patient has an element of aortic and mitral valvular disease. This was mild on her echocardiogram in 2016. I think a reassessment for other indications is worthwhile, but we will be able to see any progression with repeat echocardiography.
[2017-09-09 20:15] LABS: PTT PATIENT 38.6 SECONDS (21.0-31.0)
[2017-09-09] MEDS ORDERED: CARVEDILOL 3.125 MG TAB PO SCH (21:00)
[2017-09-09] MEDS: INSULIN GLARGINE SOLOSTAR 100 UNITS/ML 3 ML PEN SC SCH (21:17)
[2017-09-09] MEDS: FLECAINIDE ACETATE 100 MG TAB PO SCH (21:18)
[2017-09-09] MEDS: PRAVASTATIN SOD 20 MG TAB PO SCH (21:18)
[2017-09-09] MEDS: RANITIDINE HCL 150 MG TAB PO SCH (21:18)
[2017-09-09] MEDS ORDERED: HEPARIN IV BOLUS 5,000 UNIT in SYRINGE 0 ML IV SCH (22:00)
[2017-09-09 23:47] VITALS: BP 177/74; PULSE 63; TEMP 36.5; O2SAT 92
[2017-09-10] VITALS (8 sets, daily range): BP systolic 137–227; BP diastolic 71–84; PULSE 64–90; TEMP 36.6–37.1; O2SAT 91–97
[2017-09-10] MEDS: NITROGLYCERIN 2% OINTMENT 30GM TUBE EXT SCH ×2 (01:40→06:14)
[2017-09-10 04:56] LABS: PTT PATIENT 100.5 SECONDS (21.0-31.0)
[2017-09-10] MEDS: INSULIN ASPART 100 UNITS/ML 3 ML PEN SC SCH ×4 (07:00→21:00)
[2017-09-10] MEDS: SITAGLIPTIN 25 MG TAB PO SCH (07:53)
[2017-09-10] MEDS: DILTIAZEM HCL 240 MG CAPCR PO SCH (07:53)
[2017-09-10] MEDS: LOSARTAN POTASSIUM 50 MG TAB PO SCH (07:53)
[2017-09-10] MEDS: FLECAINIDE ACETATE 100 MG TAB PO SCH ×2 (07:54→21:48)
[2017-09-10] MEDS: CYANOCOBALAMIN 500 MCG TAB (VIT B-12) PO SCH (07:54)
[2017-09-10] MEDS: RANITIDINE HCL 150 MG TAB PO SCH ×2 (07:54→21:47)
[2017-09-10] MEDS: ASPIRIN 81 MG ECTAB PO SCH (07:54)
[2017-09-10] MEDS: CARVEDILOL 3.125 MG TAB PO SCH ×2 (09:06→21:48)
--- NOTE | 2017-09-10 10:11 | ECHOCARDIOGRAM REPORT ---
*NOTICE TO RECEIVING CONSTITUTION PARTY AGENCY This information is strictly Confidential and protected under [place] law. [place] law prohibits you from making any further disclosure of this information unless further disclosure is expressly permitted by the written consent of the person to whom it pertains or is authorized by law. A general authorization for the release of medical or other information is not sufficient for this purpose. Hospital accepts no responsibility if the information is made available to any other person, INCLUDING THE PATIENT. Interpretation Summary * Name: IRVIN COOPER Study Date: 09/10/2017 08:13 AM BP: 214/79 mmHg * Patient Location: [facility] HR: 75 * : 1945 (M/d/yyyy) Gender: Female Height: 62 in * Age: 72 yrs Ethnicity: [place] Weight: 197 lb * Ordering Physician: Rj Moreno * Referring Physician: Self, Referred * Performed By: Danyell Cantor RDCS * * Reason For Study: Chest pain * BSA: 1.9 m2 * -- Conclusions -- * The left ventricle is normal in size. * There is mild concentric left ventricular hypertrophy. * Left ventricular systolic function is normal. * Ejection Fraction = 65-70%. * The left ventricular wall motion is normal. * The right ventricle is normal in size and function. * The right ventricular systolic function is normal as assessed by tricuspid annular plane systolic excursion (TAPSE) (normal >1.5 cm). * The left atrium is moderately dilated. * Aortic valve sclerosis mild, without significant aortic valvular stenosis. * Normal inferior vena cava size and collapsability with sniff indicates a normal right atrial pressure of 3 mmHg * Diastolic dysfunction, Grade II, consistent with elevated left atrial pressure. Procedure Details * A complete two-dimensional transthoracic echocardiogram was performed (2D, M-mode, Doppler and color flow Doppler). Left Ventricle * The left ventricle is normal in size. * There is mild concentric left ventricular hypertrophy. * Ejection Fraction = 65-70%. * Left ventricular systolic function is normal. * The left ventricular wall motion is normal. Right Ventricle * The right ventricle is normal in size and function. * The right ventricular systolic function is normal as assessed by tricuspid annular plane systolic excursion (TAPSE) (normal >1.5 cm). Atria * The left atrium is moderately dilated. Mitral Valve * The mitral valve is grossly normal. * There is mild mitral regurgitation. Tricuspid Valve * The tricuspid valve is not well visualized, but is grossly normal. * There is trace tricuspid regurgitation. Aortic Valve * Aortic valve sclerosis mild, without significant aortic valvular stenosis. * Trace aortic regurgitation. Pulmonic Valve * The pulmonic valve is not well seen, but is grossly normal. Great Vessels * The aortic root is normal size. Pericardium/Pleural * There is no pericardial effusion. Great Vessels * Normal inferior vena cava size and collapsability with sniff indicates a normal right atrial pressure of 3 mmHg Left Ventricular Diastolic Function * Diastolic dysfunction, Grade II, consistent with elevated left atrial pressure. MMode 2D Measurements and Calculations IVSd 1.3 cm LVIDd 4.1 cm LVIDs 2.8 cm LVPWd 1.3 cm IVS/LVPW 0.96 FS 30.8 % EDV(Teich) 73.0 ml ESV(Teich) 30.0 ml EF(Teich) 58.9 % EDV(cubed) 67.5 ml ESV(cubed) 22.3 ml EF(cubed) 66.9 % LV mass(C)d 195.0 grams LV mass(C)dI 102.7 grams/m\S\2 SV(Teich) 43.0 ml SI(Teich) 22.7 ml/m\S\2 SV(cubed) 45.1 ml SI(cubed) 23.8 ml/m\S\2 Ao root diam 2.3 cm Ao root area 4.1 cm\S\2 ACS 1.7 cm LA dimension 3.4 cm asc Aorta Diam 3.3 cm LA/Ao 1.5 LVAd ap4 25.6 cm\S\2 LVLd ap4 8.2 cm EDV(MOD-sp4) 68.3 ml EDV(sp4-el) 68.1 ml LVAs ap4 13.1 cm\S\2 LVLs ap4 6.1 cm ESV(MOD-sp4) 24.7 ml ESV(sp4-el) 24.0 ml EF(MOD-sp4) 63.8 % EF(sp4-el) 64.7 % LVAd ap2 28.3 cm\S\2 LVLd ap2 8.3 cm EDV(MOD-sp2) 81.6 ml EDV(sp2-el) 82.1 ml LVAs ap2 15.9 cm\S\2 LVLs ap2 7.0 cm ESV(MOD-sp2) 31.0 ml ESV(sp2-el) 30.3 ml EF(MOD-sp2) 62.0 % EF(sp2-el) 63.0 % LVLd %diff 1.5 % EDV(MOD-bp) 75.1 ml LVLs %diff 13.4 % ESV(MOD-bp) 29.5 ml EF(MOD-bp) 60.8 % SV(MOD-sp4) 43.5 ml SI(MOD-sp4) 22.9 ml/m\S\2 SV(MOD-sp2) 50.6 ml SI(MOD-sp2) 26.6 ml/m\S\2 SV(MOD-bp) 45.6 ml SI(MOD-bp) 24.0 ml/m\S\2 SV(sp4-el) 44.1 ml SI(sp4-el) 23.2 ml/m\S\2 SV(sp2-el) 51.7 ml SI(sp2-el) 27.2 ml/m\S\2 Doppler Measurements and Calculations MV E max manjula 143.1 cm/sec MV A max manjula 122.2 cm/sec MV E/A 1.2 MV V2 max 162.9 cm/sec MV max PG 10.6 mmHg MV V2 mean 102.2 cm/sec MV mean PG 4.7 mmHg MV V2 VTI 56.8 cm MV dec time 0.24 sec Ao V2 max 221.3 cm/sec Ao max PG 19.6 mmHg Ao max PG (full) 15.3 mmHg AI max manjula 446.1 cm/sec AI max PG 79.6 mmHg AI dec slope 256.4 cm/sec\S\2 AI P1/2t 509.6 msec LV V1 max PG 4.3 mmHg LV V1 max 103.8 cm/sec PA V2 max 116.7 cm/sec PA max PG 5.5 mmHg PA acc slope 1285.7 cm/sec\S\2 PA acc time 0.06 sec TR max manjula 272.3 cm/sec PA pr(Accel) 50.5 mmHg
[2017-09-10] MEDS: HEPARIN 25,000 UNIT/500ML D5W 500 ML IV PRN (12:03)
[2017-09-10 12:18] LABS: PTT PATIENT 47.4 SECONDS (21.0-31.0)
--- NOTE | 2017-09-10 15:17 | Cardiology Follow-Up ---
Subjective General Date of Service: Sep 10, 2017. Pt evaluation today including: conversation w/ patient, chart review, lab review, review of studies History of Present Illness The patient is a 72 year old female Allergies Coded Allergies: Acetaminophen (Verified Allergy, Unknown, ., 09/09/17) Propoxyphene (Verified Allergy, Unknown, Nausea, 09/09/17) Uncoded Allergies: UNKNOWN ANITBIOTICS (Allergy, Unknown, ., 10/18/11) Social History Smoking Status: Never Smoker Hx Tobacco Use In Past Year?: No Hx Alcohol Use - Type And Amou: No Hx Substance Use - Type And Am: No Problem List Medical Problems: (1) Abnormal EKG Status: Acute (2) Elevated troponin Status: Acute (3) Substernal chest pain Status: Acute Review of Systems Respiratory: + shortness of breath, + dyspnea on exertion, No dyspnea at rest Cardiac: No chest pain, No edema, No palpitations Additional ROS Details: Feels better Physical Exam Vital Signs Last Vital Signs Documentation Date Time Temp Pulse Resp B/P (MAP) Pulse Ox O2 Delivery O2 Flow Rate FiO2 09/10/17 12:17 37.1 90 16 137/78 (97) 97 09/10/17 12:06 Room Air Physical Exam Constitutional: General Apperance: heathly-appearing Level of Distress: NAD Lungs: Respiratory effort: no dyspnea Auscultation: breath sounds normal, no wheezing, no rales/crackles, no rhonchi Cardiovascular: Heart Auscultation: RRR, no rubs, no gallops, II/ BARBARA (early peak) Extremities: no edema Assessment and Plan Assessment and Plan 1. Chest pain: cardiac vs GI--progressive SOB and HOLLY over last year--cont current meds--Currently pain free 2) Elevated troponin possibly demand from markedly elevated BP vs ischemia Normal LV function and no RWMA Lexiscan nuke to r/o ischemia and also make sure safe to be on Flecainide on Tuesday 3. Hypertension: Patient has significant hypertension. Much improved. Follow closely 4. Paroxysmal Atrial fibrillation: Patient currently in sinus rhythm. No symptomatic episodes of atrial fibrillation for several years. She has been maintained on flecainide and diltiazem. She is currently anticoagulated and should continue to be anticoagulated indefinitely. 5. Valvular heart disease: AoV sclerosis Laboratory Results Last 24 Hours Test 09/09/17 16:35 09/09/17 16:54 09/09/17 19:56 09/09/17 20:19 Bedside Glucose 92 mg/dl 152 mg/dl Troponin I 0.084 ng/ml Activated Partial Thromboplast Time 38.6 SECONDS Partial Thromboplastin Ratio 1.5 Test 09/09/17 23:04 09/10/17 04:15 09/10/17 07:27 09/10/17 11:17 Troponin I 0.067 ng/ml Activated Partial Thromboplast Time 100.5 SECONDS Partial Thromboplastin Ratio 3.9 Triglycerides Level 105 mg/dl Cholesterol Level 148 mg/dl HDL Cholesterol 42 mg/dl LDL Cholesterol, Calculated 85 mg/dl VLDL Cholesterol, Calculated 21 mg/dl Cholesterol/HDL Ratio 3.5 Bedside Glucose 163 mg/dl 300 mg/dl Test 09/10/17 11:42 Activated Partial Thromboplast Time 47.4 SECONDS Partial Thromboplastin Ratio 1.8
[2017-09-10] MEDS ORDERED: HYDROCHLOROTHIAZIDE 25 MG TAB PO STA (15:48)
--- NOTE | 2017-09-10 17:58 | DIAGNOSTIC IMAGING REPORT ---
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 TECHNIQUE: Real-time grayscale and color and spectral Doppler ultrasound imaging of the kidneys was performed. COMPARISON: None. FINDINGS: Right kidney: Cortical thinning suggested. Right kidney measures 11.1 cm. No hydronephrosis. No convincing evidence of calculus or mass. Intrarenal resistive indices range from 0.61 to 0.74. Sharp early upstroke of intrarenal arterial waveforms. Renal artery patent with peak systolic velocity 177 cm/s proximally, 65 cm/s in the midportion, and 70 cm/s distally. Renal vein patent. Left kidney: Cortical thinning suggested. Left kidney measures 11.7 cm. No hydronephrosis. No convincing evidence of calculus or mass. Intrarenal resistive indices range from 0.61 to 0.69. Sharp early upstroke of intrarenal arterial waveforms. Renal artery patent with peak systolic velocity 100 cm/s proximally, 82 cm/s in the midportion, and 54 cm/s distally. Renal vein patent. Abdominal aorta: Patent. Peak systolic velocity 124 cm/s. Ratio of right renal artery PSV/aortic PSV: 1.43. Ratio of left renal artery PSV/aortic PSV: 0.81. Other: None. Reference ranges: Normal main renal artery peak systolic velocity less than 180 cm/s. Ratio of renal artery PSV to aortic PSV less than 3.5 equates to normal or less than 60% stenosis. IMPRESSION: 1. No evidence of renal artery stenosis. Electronically signed by: Anil Bean M.D. 09/10/2017 5:57 PM Dictated Date/Time: 09/10/2017 5:46 PM
[2017-09-10] MEDS: PRAVASTATIN SOD 20 MG TAB PO SCH (21:47)
[2017-09-10] MEDS: INSULIN GLARGINE SOLOSTAR 100 UNITS/ML 3 ML PEN SC SCH (21:51)
[2017-09-11 03:45] VITALS: BP 157/75; PULSE 60; TEMP 36.7; O2SAT 95
[2017-09-11 07:55] VITALS: BP_SYST 201; BP_SYST 202; BP_DIAS 73; BP_DIAS 75; PULSE 66; TEMP 36.8; O2SAT 94
[2017-09-11 07:56] LABS: HEMATOCRIT 38.7 % (37-47); MEAN CELL VOLUME 82.9 fL (80-100); MEAN CORPUSCULAR HEMOGLOBIN 27.8 pg (25-34); MEAN CORPUSCULAR HGB CONC 33.6 g/dl (32-36); MEAN PLATELET VOLUME 9.5 fL (7.4-10.4); PLATELET COUNT 184 K/uL (130-400); RED CELL DISTRIBUTION WIDTH CV 14.6 % (11.5-14.5); RED CELL DISTRIBUTION WIDTH SD 44.3 fL (36.4-46.3); WHITE BLOOD COUNT 7.82 K/uL (4.8-10.8)
[2017-09-11] MEDS: DILTIAZEM HCL 240 MG CAPCR PO SCH (08:24)
[2017-09-11] MEDS: CYANOCOBALAMIN 500 MCG TAB (VIT B-12) PO SCH (08:24)
[2017-09-11] MEDS: RANITIDINE HCL 150 MG TAB PO SCH ×2 (08:24→21:30)
[2017-09-11 08:25] LABS: PTT PATIENT 46.2 SECONDS (21.0-31.0)
[2017-09-11] MEDS: CARVEDILOL 3.125 MG TAB PO SCH ×2 (08:25→21:30)
[2017-09-11] MEDS: ASPIRIN 81 MG ECTAB PO SCH (08:25)
[2017-09-11] MEDS: FLECAINIDE ACETATE 100 MG TAB PO SCH ×2 (08:25→21:30)
[2017-09-11] MEDS: SITAGLIPTIN 25 MG TAB PO SCH (08:25)
[2017-09-11] MEDS: LOSARTAN POTASSIUM 50 MG TAB PO SCH (08:25)
[2017-09-11 08:27] LABS: CALCIUM 8.9 mg/dl (8.5-10.1); CREATININE 1.13 mg/dl (0.60-1.20); POTASSIUM 3.9 mmol/L (3.5-5.1)
[2017-09-11] MEDS: INSULIN ASPART 100 UNITS/ML 3 ML PEN SC SCH ×4 (08:30→21:00)
--- NOTE | 2017-09-11 08:39 | Progress Note ---
Subjective Date of Service: late entry for visit Sep 10, 2017. Subjective Pt evaluation today including: conversation w/ patient, conversation w/ family ( at bedside), physical exam, chart review, lab review, review of studies (echo), conversation w/ delivery consultant (cardiology), review of inpatient medication list Pain: no chest pain/heaviness - resolved PO Intake: normal; no GI symptoms Voiding: no voiding problems tele stable overnight; no a. fib feels "much better" today denies dyspnea, back pain, chest symptoms BPs quite labile Problem List Medical Problems: (1) Abnormal EKG Status: Acute (2) Elevated troponin Status: Acute (3) Substernal chest pain Status: Acute Review of Systems Constitutional: No fever Respiratory: No cough, No shortness of breath Cardiac: No chest pain, No orthopnea, No PND, No edema Abdomen: No pain, No nausea, No vomiting Objective Vital Signs Date Time Temp Pulse Resp B/P (MAP) Pulse Ox O2 Delivery O2 Flow Rate FiO2 09/11/17 04:00 Room Air 09/11/17 03:45 36.7 60 20 157/75 (102) 95 Room Air 09/11/17 00:02 Room Air 09/10/17 23:15 36.8 68 18 172/74 (106) 92 Room Air 09/10/17 20:00 Room Air 09/10/17 19:31 36.6 74 19 166/75 (105) 91 Room Air 09/10/17 18:36 188/79 (115) 09/10/17 16:34 37.1 76 18 198/74 (115) 94 Room Air 198/84 (122) 09/10/17 16:02 Room Air 09/10/17 12:17 37.1 90 16 137/78 (97) 97 09/10/17 12:06 Room Air 09/10/17 10:49 68 168/71 (103) 09/10/17 08:12 37.0 89 18 227/79 (128) 96 09/10/17 08:05 Room Air Physical Exam General Appearance: no apparent distress ENT: pharynx normal Neck: no JVD Respiratory/Chest: lungs clear, no respiratory distress, no accessory muscle use Cardiovascular: regular rate, rhythm, no gallop, no murmur Abdomen: normal bowel sounds, non tender, soft, no organomegaly Extremities: no pedal edema Neurologic/Psychiatric: alert, oriented x 3 Laboratory Results Last 24 Hours Test 09/10/17 07:27 09/10/17 11:17 09/10/17 11:42 09/10/17 16:38 Bedside Glucose 163 mg/dl 300 mg/dl 123 mg/dl Activated Partial Thromboplast Time 47.4 SECONDS Partial Thromboplastin Ratio 1.8 Test 09/10/17 20:11 09/10/17 23:57 09/11/17 04:44 Bedside Glucose 262 mg/dl 220 mg/dl Assessment and Plan 72yo female with history of a. fib, HTN, hyperlipidemia, GERD, and obesity who presented with <24 hours of dyspnea, chest heaviness, pain in the back, nausea, and fatigue. 1. chest discomfort with positive troponin - treated for possible unstable angina with topical nitrates, BB, aspirin, and heparin drip. Troponin with scant elevation overnight. All symptoms now resolved. Echo w/o obvious wall motion abnormality. EKG w/o ischemic changes. Seen by cardiology (Mahamed) - plan is for lexiscan stress test Tuesday. Stop heparin drip tomorrow. If ischemic w/u ends up being negative it is possible all symptoms were from malignant HTN. 2. h/o a. fib - in NSR at this time. Cont fleicanide. Cont diltiazem. Holding eliquis due to heparin drip. 3. HTN - uncontrolled despite adding coreg to her home regimen of meds. Titrate coreg. add low-dose diuretic. check renal artery dopplers, r/o SEMAJ. certainly at risk of NORA - will recommend outpatient sleep study as well. 4. GERD - zantac 150mg BID. 5. obesity w/ BMI 37 6. hyperlipidemia - controlled. 7. uncontrolled T2DM - hold oral agents except for januvia; increase lantus to 10 units BID; cont novolog w/ meals 8. CKD stage 3 - creatinine is at baseline. 9. FEN - lytes are stable; diet as tolerated. leave on tele Continued [facility] stay due to: multiple IV medications needed Discharge planning: home
[2017-09-11] MEDS ORDERED: HYDROCHLOROTHIAZIDE 25 MG TAB PO SCH (10:00)
[2017-09-11] MEDS ORDERED: HEPARIN IV BOLUS 3,000 UNIT in SYRINGE 0 ML IV ONE (10:15)
[2017-09-11] MEDS: INSULIN GLARGINE SOLOSTAR 100 UNITS/ML 3 ML PEN SC SCH ×2 (10:32→21:34)
[2017-09-11] MEDS: HEPARIN 25,000 UNIT/500ML D5W 500 ML IV PRN (11:06)
[2017-09-11 12:00] VITALS: BP 167/73; PULSE 69; TEMP 36.9; O2SAT 96
--- NOTE | 2017-09-11 13:50 | Cardiology Follow-Up ---
Subjective General Date of Service: Sep 11, 2017. Pt evaluation today including: conversation w/ patient, chart review, lab review History of Present Illness The patient is a 72 year old female Allergies Coded Allergies: Acetaminophen (Verified Allergy, Unknown, ., 09/09/17) Propoxyphene (Verified Allergy, Unknown, Nausea, 09/09/17) Uncoded Allergies: UNKNOWN ANITBIOTICS (Allergy, Unknown, ., 10/18/11) Social History Smoking Status: Never Smoker Hx Tobacco Use In Past Year?: No Hx Alcohol Use - Type And Amou: No Hx Substance Use - Type And Am: No Problem List Medical Problems: (1) Abnormal EKG Status: Acute (2) Elevated troponin Status: Acute (3) Substernal chest pain Status: Acute Review of Systems Respiratory: No cough, No shortness of breath, No dyspnea at rest Cardiac: No chest pain, No edema, No palpitations Additional ROS Details: feels better Physical Exam Vital Signs Last Vital Signs Documentation Date Time Temp Pulse Resp B/P (MAP) Pulse Ox O2 Delivery O2 Flow Rate FiO2 09/11/17 12:03 Room Air 09/11/17 12:00 36.9 69 18 167/73 (104) 96 Physical Exam Constitutional: General Apperance: heathly-appearing Level of Distress: NAD Lungs: Respiratory effort: no dyspnea Auscultation: breath sounds normal, no wheezing, no rales/crackles, no rhonchi Cardiovascular: Heart Auscultation: RRR, no rubs, no gallops, II/ BARBARA (early peak) Extremities: no edema Assessment and Plan Assessment and Plan 1. Chest pain: cardiac vs GI--progressive SOB and HOLLY over last year--cont current meds--Currently pain free 2) Elevated troponin possibly demand from markedly elevated BP vs ischemia Normal LV function and no RWMA Lexiscan nuke to r/o ischemia and also make sure safe to be on Flecainide on Tuesday 3. Hypertension: Patient has significant hypertension. change to valsartan for better BP control and may need to add chlorthalidone as well, no significant room to increase CCB Agree home sleep study 4. Paroxysmal Atrial fibrillation: Patient currently in sinus rhythm. No symptomatic episodes of atrial fibrillation for several years. She has been maintained on flecainide and diltiazem. She is currently anticoagulated and should continue to be anticoagulated indefinitely. 5. Valvular heart disease: AoV sclerosis Laboratory Results Last 24 Hours Test 09/10/17 16:38 09/10/17 20:11 09/10/17 23:57 09/11/17 07:07 Bedside Glucose 123 mg/dl 262 mg/dl 220 mg/dl 167 mg/dl Test 09/11/17 07:31 09/11/17 11:13 White Blood Count 7.82 K/uL Red Blood Count 4.67 M/uL Hemoglobin 13.0 g/dL Hematocrit 38.7 % Mean Corpuscular Volume 82.9 fL Mean Corpuscular Hemoglobin 27.8 pg Mean Corpuscular Hemoglobin Concent 33.6 g/dl RDW Standard Deviation 44.3 fL RDW Coefficient of Variation 14.6 % Platelet Count 184 K/uL Mean Platelet Volume 9.5 fL Activated Partial Thromboplast Time 46.2 SECONDS Partial Thromboplastin Ratio 1.8 Sodium Level 140 mmol/L Potassium Level 3.9 mmol/L Chloride Level 106 mmol/L Carbon Dioxide Level 28 mmol/L Anion Gap 6.0 mmol/L Blood Urea Nitrogen 17 mg/dl Creatinine 1.13 mg/dl Est Creatinine Clear Calc Drug Dose 46.8 ml/min Estimated GFR () 55.8 Estimated GFR (Non- 48.2 BUN/Creatinine Ratio 14.8 Random Glucose 176 mg/dl Calcium Level 8.9 mg/dl Magnesium Level 2.7 mg/dl Bedside Glucose 303 mg/dl
[2017-09-11 16:05] LABS: PTT PATIENT 63.4 SECONDS (21.0-31.0)
[2017-09-11 16:07] VITALS: BP 191/76; PULSE 63; TEMP 36.5; O2SAT 94
[2017-09-11 20:12] VITALS: BP 186/76; PULSE 62; TEMP 36.6; O2SAT 91
[2017-09-11] MEDS ORDERED: LOSARTAN POTASSIUM 50 MG TAB PO ONE (21:00)
[2017-09-11] MEDS: PRAVASTATIN SOD 20 MG TAB PO SCH (21:30)
--- NOTE | 2017-09-11 23:06 | Progress Note ---
Subjective Date of Service: Sep 11, 2017. Subjective Pt evaluation today including: conversation w/ patient, conversation w/ family ( at bedside), physical exam, chart review, lab review, review of studies (renal artery dopplers neg for SEMAJ), conversation w/ corporate learning consultant ( cardiology), review of inpatient medication list Pain: none - no chest pain PO Intake: normal Voiding: no voiding problems tele - stable, no a. fib I reviewed outpatient office records - BPs are typically >130-140; some office readings are 170-180 systolic rarely <130 patient denies stress/anxiety but slept poorly 2 nights ago has numerous questions about plan of care states she snores but only mildly Problem List Medical Problems: (1) Abnormal EKG Status: Acute (2) Elevated troponin Status: Acute (3) Substernal chest pain Status: Acute Review of Systems Constitutional: No fever Respiratory: No cough, No sputum, No wheezing, No shortness of breath, No dyspnea on exertion Cardiac: No chest pain, No orthopnea, No PND, No edema Abdomen: No pain, No nausea, No vomiting Objective Vital Signs Date Time Temp Pulse Resp B/P (MAP) Pulse Ox O2 Delivery O2 Flow Rate FiO2 09/11/17 20:12 36.6 62 18 186/76 (112) 91 Room Air 09/11/17 16:07 36.5 63 18 191/76 (114) 94 Room Air 09/11/17 16:02 Room Air 09/11/17 12:03 Room Air 09/11/17 12:00 36.9 69 18 167/73 (104) 96 09/11/17 08:06 Room Air 09/11/17 07:55 36.8 66 20 202/75 (117) 94 Room Air 201/73 (115) 09/11/17 04:00 Room Air 09/11/17 03:45 36.7 60 20 157/75 (102) 95 Room Air 09/11/17 00:02 Room Air 09/10/17 23:15 36.8 68 18 172/74 (106) 92 Room Air Physical Exam General Appearance: no apparent distress, + obese ENT: pharynx normal Neck: no JVD Respiratory/Chest: no respiratory distress, no accessory muscle use, + rales ( scant, dry, b/l bases) Cardiovascular: regular rate, rhythm, no gallop, no murmur Abdomen: normal bowel sounds, non tender, soft, no organomegaly Extremities: no pedal edema Neurologic/Psychiatric: alert, oriented x 3 Laboratory Results Last 24 Hours Test 09/10/17 23:57 09/11/17 07:07 09/11/17 07:31 09/11/17 11:13 Bedside Glucose 220 mg/dl 167 mg/dl 303 mg/dl White Blood Count 7.82 K/uL Red Blood Count 4.67 M/uL Hemoglobin 13.0 g/dL Hematocrit 38.7 % Mean Corpuscular Volume 82.9 fL Mean Corpuscular Hemoglobin 27.8 pg Mean Corpuscular Hemoglobin Concent 33.6 g/dl RDW Standard Deviation 44.3 fL RDW Coefficient of Variation 14.6 % Platelet Count 184 K/uL Mean Platelet Volume 9.5 fL Activated Partial Thromboplast Time 46.2 SECONDS Partial Thromboplastin Ratio 1.8 Sodium Level 140 mmol/L Potassium Level 3.9 mmol/L Chloride Level 106 mmol/L Carbon Dioxide Level 28 mmol/L Anion Gap 6.0 mmol/L Blood Urea Nitrogen 17 mg/dl Creatinine 1.13 mg/dl Est Creatinine Clear Calc Drug Dose 46.8 ml/min Estimated GFR () 55.8 Estimated GFR (Non- 48.2 BUN/Creatinine Ratio 14.8 Random Glucose 176 mg/dl Calcium Level 8.9 mg/dl Magnesium Level 2.7 mg/dl Test 09/11/17 15:30 09/11/17 16:08 09/11/17 20:16 Activated Partial Thromboplast Time 63.4 SECONDS Partial Thromboplastin Ratio 2.4 Bedside Glucose 194 mg/dl 260 mg/dl Assessment and Plan 72yo female with history of a. fib, HTN, hyperlipidemia, GERD, and obesity who presented with <24 hours of dyspnea, chest heaviness, pain in the back, nausea, and fatigue. 1. chest discomfort with positive troponin - treated for possible unstable angina with topical nitrates, BB, aspirin, and heparin drip. Troponin with scant elevation after admission. All symptoms now resolved. Echo w/o obvious wall motion abnormality. EKG w/o ischemic changes. Seen by cardiology (Mahamed) - plan is for lexiscan stress test tomorrow AM. Stop heparin drip tomorrow if stress test is negative and resume eliquis at that time. If ischemic w/u ends up being negative it is possible all symptoms were from malignant HTN. 2. h/o a. fib - in NSR at this time. Cont fleicanide. Cont diltiazem. Holding eliquis due to heparin drip. 3. HTN - uncontrolled despite adding coreg to her home regimen of meds as well as HCTZ. Outpatient records indicate considerable lability in her BP as well. Dr. Richards has changed her ARB to diovan. Cont HCTZ and coreg. Cont her diltiazem. Renal artery dopplers neg for SEMAJ. consider renin/jocelynn levels but doubt hyperaldo state certainly at risk of NORA - will recommend outpatient sleep study 4. GERD - zantac 150mg BID. 5. obesity w/ BMI 37 6. hyperlipidemia - controlled. 7. uncontrolled T2DM - hold oral agents except for januvia; increase lantus to 15 units BID; cont novolog w/ meals but adjust this as well today 8. CKD stage 3 - creatinine is at baseline; BMP in am 9. FEN - lytes are stable; diet as tolerated. leave on tele updated Continued [facility] stay due to: multiple IV medications needed Discharge planning: home
[2017-09-11 23:21] VITALS: BP 170/82; PULSE 55; TEMP 36.6; O2SAT 94
[2017-09-12 03:47] VITALS: BP 176/67; PULSE 57; TEMP 36.6; O2SAT 95
[2017-09-12] MEDS: HEPARIN 25,000 UNIT/500ML D5W 500 ML IV PRN (04:11)
[2017-09-12 06:27] LABS: CREATININE 1.24 mg/dl (0.60-1.20); POTASSIUM 3.9 mmol/L (3.5-5.1)
[2017-09-12 06:45] LABS: PTT PATIENT 64.5 SECONDS (21.0-31.0)
[2017-09-12 07:44] VITALS: BP 192/80; PULSE 61; TEMP 36.8; O2SAT 95
[2017-09-12] MEDS: INSULIN ASPART 100 UNITS/ML 3 ML PEN SC SCH ×4 (08:22→20:49)
[2017-09-12] MEDS: RANITIDINE HCL 150 MG TAB PO SCH ×2 (08:26→20:43)
[2017-09-12] MEDS: INSULIN GLARGINE SOLOSTAR 100 UNITS/ML 3 ML PEN SC SCH ×2 (08:26→20:48)
[2017-09-12] MEDS: FLECAINIDE ACETATE 100 MG TAB PO SCH ×2 (08:26→20:43)
[2017-09-12] MEDS: CARVEDILOL 3.125 MG TAB PO SCH ×2 (08:27→20:44)
[2017-09-12] MEDS: DILTIAZEM HCL 240 MG CAPCR PO SCH (08:27)
[2017-09-12] MEDS: ASPIRIN 81 MG ECTAB PO SCH (08:27)
[2017-09-12] MEDS: VALSARTAN 80 MG TAB PO SCH (08:28)
[2017-09-12] MEDS: SITAGLIPTIN 25 MG TAB PO SCH (08:28)
[2017-09-12] MEDS: CYANOCOBALAMIN 500 MCG TAB (VIT B-12) PO SCH (08:28)
[2017-09-12] MEDS: HYDROCHLOROTHIAZIDE 25 MG TAB PO SCH (08:29)
--- NOTE | 2017-09-12 09:37 | Clinical Documentation Query ---
CLINICAL DOCUMENTATION QUERY 72 yo female admitted with chest pain and positive troponin levels. An echocardiogram shows mild concentric left ventricular hypertrophy and grade II diastolic dysfunction. EF = 65-70%. In your clinical opinion is this patient being managed for: ( ) Chronic diastolic CHF ( x) Not Agree - although she has diastolic dysfunction she has never had CHF or CHF-related issues ( ) Other explanation of clinical findings (Please Explain) ( ) Unable to determine (Please Define) ( ) Need to Discuss The medical record reflects the following clinical findings, treatment, and risk factors. Clinical Indicators: As above Treatment: Home Lasix 20mg PO, telemetry, PRPs, I&Os, echo Risk Factors: HTN, CKD, A-fib Please clarify and document your clinical opinion in the progress notes and discharge summary. Terms such as "probable", "suspected", "likely", "questionable", "possible", or "still to be ruled out" are acceptable. IF IN AGREEMENT, YOU MUST DOCUMENT ABOVE DIAGNOSTIC STATEMENT IN DAILY PROGRESS NOTES AND DISCHARGE SUMMARY. This document is not part of the patient's record. Thank You, Sandra Roach RN [phone]
[2017-09-12] MEDS ORDERED: REGADENOSON 0.4 MG/5 ML SYR ONE (09:50)
[2017-09-12 14:26] VITALS: BP_SYST 156; BP_SYST 169; BP_DIAS 69; BP_DIAS 78; PULSE 67; TEMP 36.8; O2SAT 95
[2017-09-12 15:03] VITALS: BP 163/78; PULSE 68; TEMP 36.5; O2SAT 93
--- NOTE | 2017-09-12 15:05 | MYOCARDIAL PERFUSION SCAN ---
ONE-DAY NUCLEAR MEDICINE TECHNETIUM-99M CARDIOLITE MYOCARDIAL PERFUSION SCAN CLINICAL HISTORY: This stress test is being performed because of a chest pain syndrome and an abnormal EKG. COMPARISON: None. TECHNIQUE: For the stress portion of the study, 33.0 mCi of Technetium-99m Cardiolite IV was injected at 11:20 a.m. on 09/12/2017. Thirty minutes following the injection, imaging of the heart was performed in multiple projection. For the rest portion of the study, 10.5 mCi of Technetium-99m Cardiolite was injected IV at 9:35 am. One hour following the injection, imaging of the heart was performed in the same projections. For the stress portion of the study, 0.4 mg of Lexiscan was injected intravenously as per protocol. The patient did not experience chest discomfort. Baseline EKG notes sinus rhythm with an old anterior myocardial infarction pattern. There are no ST segment changes seen during the infusion. Following the study, patient was hemodynamically stable without complaints. FINDINGS: The short axis, vertical long axis, horizontal long axis images were reviewed in detail. There is a small defect in the antral septum at both stress and rest, which most likely represents breast attenuation as indicated by the rotating images. There is no definite scintigraphic evidence of prior myocardial infarction or stress-induced myocardial ischemia. The left ventricle demonstrates normal systolic function without wall motion abnormalities. The left ventricular ejection fraction is 63%. CONCLUSIONS: 1. No definite scintigraphic evidence of a prior myocardial infarction or stress-induced myocardial ischemia. 2. No Lexiscan induced chest pain. 3. No Lexiscan induced EKG change. 4. Normal left ventricular ejection fraction of 63% without wall motion abnormalities.
--- NOTE | 2017-09-12 16:24 | Cardiology Follow-Up ---
Subjective Date of Service: Sep 12, 2017. Pt evaluation today including: conversation w/ patient, physical exam, review of studies, review of inpatient medication list History of Present Illness She feels well today, she has not had any further chest discomfort. Social History Smoking Status: Never Smoker History of Alcohol Use: No Review of Systems Respiratory: No cough, No sputum, No wheezing, No shortness of breath, No dyspnea on exertion Cardiac: No chest pain, No orthopnea, No PND, No edema No recent constitutional symptoms such as fevers or chills. Objective Vital Signs Past 12 Hours Date Time Temp Pulse Resp B/P (MAP) Pulse Ox O2 Delivery O2 Flow Rate FiO2 09/12/17 15:03 36.5 68 18 163/78 (106) 93 Room Air 09/12/17 14:26 36.8 67 19 169/69 (102) 95 Room Air 156/78 (104) 09/12/17 12:30 Room Air 09/12/17 08:00 Room Air 09/12/17 07:44 36.8 61 19 192/80 (117) 95 Room Air Last Recorded Weight-Kilograms: 91.800 Intake & Output 8-Hour Column 09/12/17 09/13/17 09/13/17 16:00 00:00 08:00 Intake Total 528 ml Balance 528 ml 24-Hour Column 09/13/17 08:00 Intake Total 528 ml Balance 528 ml Physical Exam Constitutional: General Apperance: heathly-appearing Level of Distress: NAD Lungs: Respiratory effort: no dyspnea Auscultation: breath sounds normal, no wheezing, no rales/crackles, no rhonchi Cardiovascular: Heart Auscultation: RRR, no rubs, no gallops, II/ BARBARA (early peak) Extremities: no edema Data Laboratory Results: Last 24 Hours Test 09/11/17 20:16 09/11/17 23:25 09/12/17 05:32 09/12/17 06:05 Bedside Glucose 260 mg/dl 227 mg/dl 221 mg/dl Activated Partial Thromboplast Time 64.5 SECONDS Partial Thromboplastin Ratio 2.5 Sodium Level 138 mmol/L Potassium Level 3.9 mmol/L Chloride Level 104 mmol/L Carbon Dioxide Level 27 mmol/L Anion Gap 7.0 mmol/L Blood Urea Nitrogen 20 mg/dl Creatinine 1.24 mg/dl Est Creatinine Clear Calc Drug Dose 42.6 ml/min Estimated GFR () 49.9 Estimated GFR (Non- 43.1 BUN/Creatinine Ratio 16.0 Random Glucose 214 mg/dl Calcium Level 9.0 mg/dl Test 09/12/17 12:48 09/12/17 16:01 Bedside Glucose 253 mg/dl 168 mg/dl Imaging: Her Cardiolite study today was negative for ischemia Telemetry reviewed: Sinus rhythm, no significant abnormality Assessment and Plan Chest discomfort: Her symptoms were atypical for coronary artery disease and her Cardiolite study was negative for ischemia. I would not pursue further evaluation, I would recommend sending her home for outpatient follow-up. She has an appointment in about 2 weeks and I have recommended that she keep that appointment. Thank you for allowing me to participate in her care.
[2017-09-12] MEDS: APIXABAN 2.5 MG TAB PO SCH (17:27)
[2017-09-12 19:44] VITALS: BP 185/71; PULSE 68; TEMP 36.7; O2SAT 94
[2017-09-12] MEDS: PRAVASTATIN SOD 20 MG TAB PO SCH (20:43)
[2017-09-12 23:27] VITALS: BP 156/61; PULSE 61; TEMP 36.7; O2SAT 93
--- NOTE | 2017-09-12 23:46 | Progress Note ---
Subjective Date of Service: Sep 12, 2017. Subjective Pt evaluation today including: conversation w/ patient, conversation w/ family (), physical exam, chart review, lab review, review of studies (lexiscan stress test), review of inpatient medication list Pain: none PO Intake: normal Voiding: no voiding problems tele stable overnight during her stress test she had NO chest pain or other cardiopulmonary symptoms feels good; anxious to go home Problem List Medical Problems: (1) Abnormal EKG Status: Acute (2) Elevated troponin Status: Acute (3) Substernal chest pain Status: Acute Review of Systems Respiratory: No shortness of breath, No dyspnea on exertion Cardiac: No chest pain, No orthopnea Abdomen: No pain Objective Vital Signs Date Time Temp Pulse Resp B/P (MAP) Pulse Ox O2 Delivery O2 Flow Rate FiO2 09/12/17 20:00 Room Air 09/12/17 19:44 36.7 68 17 185/71 (109) 94 Room Air 09/12/17 16:00 Room Air 09/12/17 15:03 36.5 68 18 163/78 (106) 93 Room Air 09/12/17 14:26 36.8 67 19 169/69 (102) 95 Room Air 156/78 (104) 09/12/17 12:30 Room Air 09/12/17 08:00 Room Air 09/12/17 07:44 36.8 61 19 192/80 (117) 95 Room Air 09/12/17 04:00 Room Air 09/12/17 03:47 36.6 57 19 176/67 (103) 95 Room Air 09/12/17 00:02 Room Air Physical Exam General Appearance: no apparent distress, + obese ENT: pharynx normal Neck: no JVD Respiratory/Chest: lungs clear, no respiratory distress, no accessory muscle use, + rales (minimal bases) Cardiovascular: regular rate, rhythm, no gallop, no murmur Abdomen: normal bowel sounds, non tender, soft, no organomegaly Extremities: no pedal edema Neurologic/Psychiatric: alert, oriented x 3 Skin: no rash Laboratory Results Last 24 Hours Test 09/12/17 05:32 09/12/17 06:05 09/12/17 12:48 09/12/17 16:01 Activated Partial Thromboplast Time 64.5 SECONDS Partial Thromboplastin Ratio 2.5 Sodium Level 138 mmol/L Potassium Level 3.9 mmol/L Chloride Level 104 mmol/L Carbon Dioxide Level 27 mmol/L Anion Gap 7.0 mmol/L Blood Urea Nitrogen 20 mg/dl Creatinine 1.24 mg/dl Est Creatinine Clear Calc Drug Dose 42.6 ml/min Estimated GFR () 49.9 Estimated GFR (Non- 43.1 BUN/Creatinine Ratio 16.0 Random Glucose 214 mg/dl Calcium Level 9.0 mg/dl Bedside Glucose 221 mg/dl 253 mg/dl 168 mg/dl Test 09/12/17 20:30 Bedside Glucose 134 mg/dl Assessment and Plan 72yo female with history of a. fib, HTN, hyperlipidemia, GERD, and obesity who presented with <24 hours of dyspnea, chest heaviness, pain in the back, nausea, and fatigue. 1. chest discomfort with positive troponin - treated for possible unstable angina initially with heparin drip, etc. However, troponin elevation was minimal, she did not have recurrent symptoms, and her lexiscan nuclear stress test today was negative for ischemia. Chest symptoms may have been due to severe, uncontrolled HTN. 2. h/o a. fib - in NSR at this time. Cont fleicanide. Cont diltiazem. Stop heparin drip; transition back to eliquis BID. 3. HTN - uncontrolled. Outpatient records indicate considerable lability in her BP as well. Cont ARB, HCTZ, coreg, and diltiazem. Increase the HCTZ to 25mg daily today. Renal artery dopplers neg for SEMAJ. check enin/jocelynn levels in AM certainly at risk of NORA - consider outpatient sleep study white coat component?? 4. GERD - zantac 150mg BID. 5. obesity w/ BMI 37 6. hyperlipidemia - controlled. 7. uncontrolled T2DM - improving with insulin adjustment 8. CKD stage 3 - creatinine is at baseline; BMP in am 9. FEN - lytes are stable; diet as tolerated. updated observe overnight due to severely uncontrolled BPs Continued [facility] stay due to: multiple IV medications needed Discharge planning: home
[2017-09-13 03:45] VITALS: BP 169/72; PULSE 62; TEMP 36.7; O2SAT 97
[2017-09-13] MEDS: SITAGLIPTIN 25 MG TAB PO SCH (07:32)
[2017-09-13] MEDS: DILTIAZEM HCL 240 MG CAPCR PO SCH (07:33)
[2017-09-13] MEDS: RANITIDINE HCL 150 MG TAB PO SCH (07:33)
[2017-09-13] MEDS: CYANOCOBALAMIN 500 MCG TAB (VIT B-12) PO SCH (07:33)
[2017-09-13] MEDS: VALSARTAN 80 MG TAB PO SCH (07:33)
[2017-09-13] MEDS: ASPIRIN 81 MG ECTAB PO SCH (07:33)
[2017-09-13] MEDS: FLECAINIDE ACETATE 100 MG TAB PO SCH (07:34)
[2017-09-13] MEDS: HYDROCHLOROTHIAZIDE 25 MG TAB PO SCH (07:34)
[2017-09-13] MEDS: APIXABAN 2.5 MG TAB PO SCH (07:34)
[2017-09-13] MEDS: CARVEDILOL 3.125 MG TAB PO SCH (07:34)
[2017-09-13] MEDS: INSULIN GLARGINE SOLOSTAR 100 UNITS/ML 3 ML PEN SC SCH (07:39)
[2017-09-13] MEDS: INSULIN ASPART 100 UNITS/ML 3 ML PEN SC SCH ×2 (07:40→11:40)
[2017-09-13 07:44] VITALS: BP 155/80; PULSE 58; TEMP 36.7; O2SAT 94
[2017-09-13 08:35] LABS: CALCIUM 9.2 mg/dl (8.5-10.1); CREATININE 1.42 mg/dl (0.60-1.20); POTASSIUM 4.1 mmol/L (3.5-5.1)
[2017-09-13] MEDS ORDERED: VALS320T PO (11:12)
[2017-09-13] MEDS ORDERED: HYDR12.55 PO (11:12)
[2017-09-13] MEDS ORDERED: CARV6.25 PO (11:12)
[2017-09-13] MEDS ORDERED: POTA10TA PO (11:12)
--- NOTE | 2017-09-13 11:24 | Discharge Instructions ---
Discharge Instructions Date of Service Sep 13, 2017. Admission Reason for Admission: Chest Pain Discharge Discharge Diagnosis / Problem: chest pain- negative stress test, probably due to very high blood pressure Discharge Goals Goal(s): Learn about illness, Diagnostic testing, Therapeutic intervention Activity Recommendations Activity Limitations: resume your previous activity . Instructions / Follow-Up Instructions / Follow-Up From Dr. Moreno - You were admitted for chest heaviness/pain, shortness of breath, and simply feeling poorly. Your blood pressure was very, very high at time of presentation and remained so for much of your stay. We were initially worried about a heart attack. After seeing the job training specialist and having a negative stress test it appears that you did NOT have a heart attack and that your uncontrolled blood pressures likely caused your symptoms. We cannot say with 100% certainty but the available evidence suggests that the high blood pressure was the culprit. However, if you continue to have chest discomfort/pain/heaviness, shortness of breath, etc you will need to talk with Dr. Samayoa about a heart catheterization. For your blood pressure please do/take the following - 1. START coreg (carvedilol) 6.25mg twice a day. START this TONIGHT at home. New prescription sent to [facility]. 2. START valsartan (diovan) 1/2 tablet twice a day. START this TOMORROW morning, 09/14/17. New prescription sent to [facility]. 3. START HCTZ (hydrochlorothiazide) 12.5mg once a day every morning. START this TOMORROW morning, 09/14/17. New prescription sent to [facility]. 4. STOP your losartan. 5. CONTINUE your diltiazem as previous. 6. START potassium supplement 10meq once a day. START this TODAY. New prescription sent to [facility]. Please continue to check your blood pressures once-twice a day at home and report these to your doctors. Follow up appts: 1. Dr. Rhoades, 09/19/17, at 1130am 2. see Dr. Samayoa on September [address] to [facility] if - * you develop recurrent chest pain/heaviness/discomfort * you have recurrent shortness of breath * you develop extreme fatigue, especially if having chest pain/shortness of breath at the same time * severe dizziness/lightheadedness occurs * any other concerns Current Hospital Diet Patient's current hospital diet: AHA Diet (Heart Healthy), Diabetes Type 2 Diet Discharge Diet Recommended Diet: AHA Diet (Heart Healthy), Diabetes Type 2 Diet Procedures Procedures Performed: 1. lexiscan nuclear stress test negative. 2. renal artery sonogram negative/normal. 3. chest x-ray - normal. 4. echocardiogram - good heart function. Pending Studies Studies pending at discharge: yes List of pending studies: renin/aldosterone levels (if high this hormone can cause difficult to control blood pressure) Laboratory Results Hemoglobin A1c Test 07/26/17 10:35 Range/Units Estimated Average Glucose 180 mg/dl Hemoglobin A1c 7.9 H 4.5-5.6 % Lipid Panel Test 09/10/17 04:15 Range/Units Triglycerides Level 105 0-150 mg/dl Cholesterol Level 148 0-200 mg/dl HDL Cholesterol 42 mg/dl Cholesterol/HDL Ratio 3.5 LDL Cholesterol, Calculated 85 mg/dl Medical Emergencies . Who to Call and When: Medical Emergencies: If at any time you feel your situation is an emergency, please call 911 immediately. . Non-Emergent Contact Non-Emergency issues call your: Primary Care Provider, Digital Computer Operator Call Non-Emergent contact if: temperature is above 100.5, your pain is not controlled, your pain is worsening, your pain is unusual for you, your pain is concerning you, you have any medication questions . . "Provider Documentation" section prepared by Rj Moreno. .
[2017-09-13 11:45] VITALS: BP 149/77; PULSE 55; TEMP 36.5; O2SAT 94
--- NOTE | 2017-09-13 13:41 | Cardiology Follow-Up ---
Subjective Date of Service: Sep 13, 2017. Pt evaluation today including: conversation w/ patient, physical exam, lab review, review of studies, review of inpatient medication list History of Present Illness She has no complaints today, she would like to go home. No further chest discomfort. Social History Smoking Status: Never Smoker History of Alcohol Use: No Review of Systems Respiratory: No shortness of breath, No dyspnea on exertion Cardiac: No chest pain, No orthopnea No recent constitutional symptoms such as fevers or chills. Objective Vital Signs Past 12 Hours Date Time Temp Pulse Resp B/P (MAP) Pulse Ox O2 Delivery O2 Flow Rate FiO2 09/13/17 11:45 36.5 55 19 149/77 (101) 94 Room Air 09/13/17 11:41 36.7 58 19 94 Room Air 09/13/17 08:00 Room Air 09/13/17 07:44 36.7 58 19 155/80 (105) 94 Room Air 09/13/17 04:00 Room Air 09/13/17 03:45 36.7 62 17 169/72 (104) 97 Room Air Last Recorded Weight-Kilograms: 91.800 Physical Exam Constitutional: General Apperance: heathly-appearing Level of Distress: NAD Lungs: Respiratory effort: no dyspnea Auscultation: breath sounds normal, no wheezing, no rales/crackles, no rhonchi Cardiovascular: Heart Auscultation: RRR, no rubs, no gallops, II/ BARBARA (early peak) Extremities: no edema Data Laboratory Results: Last 24 Hours Test 09/12/17 16:01 09/12/17 20:30 09/13/17 06:54 09/13/17 07:32 Bedside Glucose 168 mg/dl 134 mg/dl 182 mg/dl Sodium Level 137 mmol/L Potassium Level 4.1 mmol/L Chloride Level 104 mmol/L Carbon Dioxide Level 25 mmol/L Anion Gap 8.0 mmol/L Blood Urea Nitrogen 24 mg/dl Creatinine 1.42 mg/dl Est Creatinine Clear Calc Drug Dose 37.2 ml/min Estimated GFR () 42.4 Estimated GFR (Non- 36.5 BUN/Creatinine Ratio 16.7 Random Glucose 191 mg/dl Calcium Level 9.2 mg/dl Test 09/13/17 11:14 Bedside Glucose 147 mg/dl Imaging: Nuclear stress test yesterday without ischemia, normal left ventricular function Telemetry reviewed: Sinus rhythm and sinus bradycardia, no significant arrhythmia Assessment and Plan Chest discomfort: With no further symptoms since admission and a negative nuclear stress test I would not pursue further evaluation at this time. She has an appointment in about 2 weeks and I have recommended that she keep that appointment. Thank you for allowing me to participate in her care.
--- NOTE | 2017-09-14 08:05 | Discharge Summary ---
Discharge Summary Date of Service Sep 14, 2017. Discharge Summary Admission Date: Sep 09, 2017 at 13:56 Discharge Date: Sep 13, 2017 Discharge Disposition: Home Principal Diagnosis: hypertensive emergency/malignant HTN - resolved Problems/Secondary Diagnoses: 1. atrial fibrillation - s/p multiple cardioversions and now on antiarrhythmic therapy 2. T2DM 3. HTN 4. GERD 5. CKD stage 3 6. obesity - BMI 37 7. hyperlipidemia 8. chest pain, negative ischemic work-up, likely due to severely uncontrolled HTN 9. positive troponin - POA - likely due to myocardial demand ischemia/type 2 GA in setting of HTN emergency Immunizations: Have You Had Influenza Vaccine: No History of Tetanus Vaccine?: Unknown Tetanus Immunization Date: Sep 17, 2011 History of Pneumococcal: No History of Hepatitis B Vaccine: No Procedures: 1. echocardiogram - * -- Conclusions -- * The left ventricle is normal in size. * There is mild concentric left ventricular hypertrophy. * Left ventricular systolic function is normal. * Ejection Fraction = 65-70%. * The left ventricular wall motion is normal. * The right ventricle is normal in size and function. * The right ventricular systolic function is normal as assessed by tricuspid annular plane systolic excursion (TAPSE) (normal >1.5 cm). * The left atrium is moderately dilated. * Aortic valve sclerosis mild, without significant aortic valvular stenosis. * Normal inferior vena cava size and collapsability with sniff indicates a normal right atrial pressure of 3 mmHg * Diastolic dysfunction, Grade II, consistent with elevated left atrial pressure. 2. Lexiscan nuclear stress test - CONCLUSIONS: 1. No definite scintigraphic evidence of a prior myocardial infarction or stress-induced myocardial ischemia. 2. No Lexiscan induced chest pain. 3. No Lexiscan induced EKG change. 4. Normal left ventricular ejection fraction of 63% without wall motion abnormalities. 3. renal artery dopplers negative for renal artery stenosis. Consultations: cardiology - [facility] Medication Reconciliation New Medications: Carvedilol (Coreg) 6.25 Mg Tab 1 TAB PO BID for 30 Days, #60 TAB 5 Refills for high blood pressure Hydrochlorothiazide (Hydrochlorothiazide) 12.5 Mg Tab 1 TAB PO QAM for 30 Days, #30 TAB 5 Refills for high blood pressure Potassium Chloride (K-Tabs) 10 Meq Tab 10 MEQ PO DAILY, #30 TABS 5 Refills Valsartan (Diovan) 320 Mg Tab 0.5 TAB PO BID, #30 TAB 5 Refills for high blood pressure; begin on AM of 09/14/17 Continued Medications: Apixaban (Eliquis) 5 Mg Tab 5 MG PO BID Cyanocobalamin (Vitamin B-12) 500 Mcg Tab 500 MCG PO DAILY Diltiazem HCl Coated Beads (Diltiazem HCl ER) 240 Mg Tab 240 MG PO DAILY, #30 TAB Flecainide (Tambocor) 100 Mg Tab 100 MG PO BID Furosemide (Lasix) 20 Mg Tab 20 MG PO EDEMA Garlic (Garlic) 400 Mg Tab 400 MG PO DAILY Glipizide (Glucotrol) 10 Mg Tab 10 MG PO AMPM Metformin Hcl (Glucophage) 500 Mg Tab 500 MG PO BIDM Nutritional Supplements (Grapeseed Extract) 1 Cap Cap 1 CAP PO DAILY Pravastatin (Pravachol ) 20 Mg Tab 20 MG PO HS Ranitidine Hcl (Zantac) 150 Mg Tab 150 MG PO HS Sitagliptin (Januvia) 50 Mg Tab 50 MG PO DAILY [Menatetreone] () 15 MG TAB 3 TABS PO DAILY ULTRA K2 (MENATETREONE 15 MG) (VITAMIN K) Discontinued Medications: Losartan Potassium (Cozaar) 100 Mg Tab 100 MG PO DAILY Discharge Exam Physical Exam: General Appearance: no apparent distress, + obese ENT: pharynx normal Neck: no JVD Respiratory/Chest: lungs clear, no respiratory distress, no accessory muscle use, + rales (scant, dry, bases) Cardiovascular: regular rate, rhythm, no gallop, no murmur, normal peripheral pulses Abdomen / GI: normal bowel sounds, non tender, soft, no organomegaly Extremities: no pedal edema Neurologic/Psychiatric: no motor/sensory deficits, alert, oriented x 3 Hospital Course HISTORY OF PRESENT ILLNESS: 72yo female with history of long-standing a. fib who presents with various symptoms including abdominal bloating, dyspnea, burping, heaviness in her chest , "burning" sensation in between the scapula, as well as some nausea that started about midnight. These symptoms awoke her from her sleep. The burping and bloating sensation in her abdomen were the worst symptoms. She took some tums with partial relief of the GI symptoms. For dinner last pm she had baked beans, hamburger, and potato salad at 630pm. She was restless throughout the night and awoke again about 4am. At 4am she was dyspneic and actually got out of bed and propped herself up on pillows on the couch to be able to sleep. About 0645am she got up for the day, ate breakfast, and "felt ok." Eating breakfast didn't bother her symptoms. She tried to sweep up around the house but didn't feel good. She got short of breath doing this task. She had associated heaviness in her chest with sweeping the floor. When she stopped the sweeping her symptoms improved. In the last 1-2 months she has had significant fatigue - much more so than usual. She has noted dyspnea with going up a flight of steps which is not typical for her. HOSPITAL COURSE: At time of admission, given her symptoms and mildly elevated troponin, there was concern for unstable angina. Therefore she was placed on telemetry, initiated on heparin infusion, given topical nitrates, and focus was placed on blood pressure control. Serial troponins were only minimally elevated with peak of 0.08. Once her BPs improved all of her cardiopulmonary symptoms resolved. She was seen in consult by [facility] who advised lexiscan nuclear stress test. This was completed about 24 hours prior to discharge and showed no areas of ischemia. Thus, in light of her work-up, it was felt that her presenting symptoms were likely due to severely uncontrolled HTN/HTN emergency. Throughout her stay we made several additions/changes to her HTN regimen. Despite such her BPs were quite resistant. For that reason a renal artery doppler was obtained to rule out renal artery stenosis; the study was negative, fortunately. Renin/aldosterone levels were sent and pending at time of discharge. By the time of hospital discharge the patient's systolic BPs came into the 140s/ 150s. I reviewed the patient's outpatient record and most BPs in the office are high, with some even in the 170-180 range. She reports much better control at her home. This may suggest a component of white coat HTN in addition to her essential HTN. At discharge she will take a combination of coreg BID, HCTZ qam, diovan once daily (changed from losartan), and diltiazem as previous. I did suggest she talk to Dr. Rhoades about an outpatient sleep study to rule out NORA as this could contribute to resistant HTN. All other medical problems remained stable while here including her PAF. She remained in NSR her entire stay while on telemetry. She will continue eliquis anticoagulation for her a. fib. She was counseled that if she were to continue having chest discomfort, dyspnea , etc - even despite her negative work-up - a heart catheterization would need to be considered given her risk factors. Total Time Spent: Greater than 30 minutes This includes examination of the patient, discharge planning, medication reconciliation, and communication with other providers. Discharge Instructions Please refer to the electronic Patient Visit Report (Discharge Instructions) for additional information. Follow-Up 1. Dr. Rhoades, 09/19/17, at 1130am 2. see Dr. Samayoa on September 30 as scheduled Additional Copies To Cinthia Rhoades M.D.; Ovidio Samayoa M.D.
[2017-09-19] MEDS ORDERED: FURO-85 PO (11:27)
[2017-09-19] MEDS ORDERED: GARL400T9 PO (11:27)
[2017-09-19] MEDS ORDERED: FLEC100T21 PO (11:27)
[2017-09-19] MEDS ORDERED: SITA50TA3 PO (11:27)
[2017-09-19] MEDS ORDERED: GLIP10TA3 PO (11:27)
[2017-09-19] MEDS ORDERED: GLC/500 PO (11:27)
[2017-09-19] MEDS ORDERED: [UNRECOGNIZED DRUG - OTHER] PO (11:27)
[2017-09-19] MEDS ORDERED: VTMB12 PO (11:27)
[2017-09-19] MEDS ORDERED: NUTRCAP54 PO (11:27)
[2017-09-19] MEDS ORDERED: APIX1TAB3 PO (11:27)
[2017-09-19] MEDS ORDERED: PRAV20TA PO (12:23)
[2017-09-19] MEDS ORDERED: RANI150T3 PO (12:25)
== END 2017-09-13 11:59 | disposition home or self-care (01) | DRG 683 ==
LOC: C.EDB 10:52 → C.2T 13:56 → ENRESERV 14:20
PROVIDERS: ADMIT Internal Medicine; ATTEND Internal Medicine
DX: I12.9 Hypertensive chronic kidney disease with stage 1 through stage 4 chronic kidney disease, or unspecified chronic kidney disease (principal); I16.1 Hypertensive emergency; I48.0 Paroxysmal atrial fibrillation; N18.3 Chronic kidney disease, stage 3 (moderate); Z83.3 Family history of diabetes mellitus; Z88.8 Allergy status to other drugs, medicaments and biological substances; E11.9 Type 2 diabetes mellitus without complications; K21.9 Gastro-esophageal reflux disease without esophagitis; Z82.49 Family history of ischemic heart disease and other diseases of the circulatory system; E66.9 Obesity, unspecified; Z68.36 Body mass index [BMI] 36.0-36.9, adult; E78.5 Hyperlipidemia, unspecified; I65.29 Occlusion and stenosis of unspecified carotid artery

== ENCOUNTER 2017-09-19 12:38 | Inpatient (IN) | payer OTHER ==
[~2017-09-19] VITALS: Ht 157.5 cm; Wt 85.5 kg
[~2017-09-19 12:38] MED LIST changes: -B COTAB PO; +CARV6.25 PO; -CRDCD180 PO; +DILT1TAB50 PO; +FURO-85 PO; +GARL400T9 PO; +GLC/500 PO; +GLIP10TA3 PO; +HYDR12.55 PO; -IBUP-103 PO; -MCR5 PO; -MISCCAP55 PO; +NUTRCAP54 PO; +POTA10TA PO; +PRAV20TA PO; +RANI150T3 PO; +SITA50TA3 PO; +VALS320T PO; +VTMB12 PO; +[UNRECOGNIZED DRUG - OTHER] PO
[2017-09-19] MEDS ORDERED: HYDR12.56 PO (13:19)
[2017-09-19] MEDS ORDERED: VALS320T PO (13:19)
[2017-09-19] MEDS ORDERED: POTA10CA28 PO (13:19)
[2017-09-19] MEDS ORDERED: [UNRECOGNIZED DRUG - CODE] PO (13:19)
[2017-09-19] MEDS ORDERED: CARV6.252 PO (13:19)
--- NOTE | 2017-09-19 13:43 | EMERGENCY ROOM VISIT NOTE ---
History Report prepared by Romel: Yann Gonzales Under the Supervision of: Dr. Alban Baker M.D. First contact with patient: 13:14 Chief Complaint: CHEST PAIN Stated Complaint: HEAVINESS AND PAIN IN CHEST History of Present Illness The patient is a 72 year old female who presents to the Emergency Room with complaints of intermittent pain in her chest that onset last night. The patient describes her chest pain as a "tightness across my whole chest." She also included that this episode, "was the worst one I've ever had." She notes that this episode lasted about 30 minutes. The pain seems to onset more when she is laying in bed at night. The patient notes that there has been some associated shortness of breath and radiation of the pain to her mid-back. She notes that she is feeling okay now. The patient was in the emergency department on Tuesday for similar complaints. After her visit on Tuesday the patient did have a cardiac stress test performed, this was normal. She has a history of atrial fibrillation. Source of History: patient Onset: Last night Position: chest Symptom Intensity: was the worst one I've ever had Quality: other ("tightness across chest" ) Timing: intermittent Associated Symptoms: + SOB, + back pain Review of Systems See HPI for pertinent positives & negatives. A total of 10 systems reviewed and were otherwise negative. Past Medical & Surgical Medical Problems: (1) Atrial fibrillation with RVR (2) Chest pain (3) History of cardioversion Surgical Problems: (1) History of section Old medical records were reviewed. Nurse's notes were reviewed and I agree with. Family History Diabetes mellitus FHx: heart disease Hypertension Social History Smoking Status: Never Smoker Alcohol Use: none Drug Use: none Marital Status: Housing Status: lives with family Occupation Status: retired Current/Historical Medications Scheduled Apixaban (Eliquis), 5 MG PO BID Carvedilol (Coreg), 6.25 MG PO BID Cyanocobalamin (Vitamin B-12), 500 MCG PO DAILY Diltiazem HCl Coated Beads (Diltiazem HCl ER), 240 MG PO DAILY Flecainide (Tambocor), 100 MG PO BID Furosemide (Lasix), 20 MG PO EDEMA Garlic (Garlic), 400 MG PO DAILY Glipizide (Glucotrol), 10 MG PO AMPM Hydrochlorothiazide (Hctz), 12.5 MG PO QAM Metformin Hcl (Glucophage), 500 MG PO BIDM Nutritional Supplements (Grapeseed Extract), 1 CAP PO DAILY Phytonadione (Mephyton), 15 MG PO DAILY Potassium Chloride (Micro-K Ext Rel), 10 MEQ PO DAILY Pravastatin (Pravachol ), 20 MG PO HS Ranitidine Hcl (Zantac), 150 MG PO HS Sitagliptin (Januvia), 50 MG PO DAILY Valsartan (Diovan), 160 MG PO BID [Menatetreone], 3 TABS PO DAILY Allergies Coded Allergies: Acetaminophen (Verified Allergy, Unknown, ., 09/19/17) Propoxyphene (Verified Allergy, Unknown, Nausea, 09/19/17) Uncoded Allergies: UNKNOWN ANITBIOTICS (Allergy, Unknown, ., 10/18/11) Physical Exam Vital Signs Date Time Temp Pulse Resp B/P (MAP) Pulse Ox O2 Delivery O2 Flow Rate FiO2 09/19/17 17:14 65 09/19/17 16:31 58 20 165/79 94 Room Air 09/19/17 16:04 57 20 171/85 94 Room Air 09/19/17 15:57 58 19 167/77 95 Room Air 09/19/17 14:08 60 20 150/81 94 Room Air 09/19/17 13:13 63 09/19/17 12:54 36.4 68 20 179/73 96 Room Air Physical Exam General: Non-ill appearing middle-aged male in no acute distress. HEENT: Normal cephalic atraumatic. Pupils are equal round and reactive to light. Extraocular movements are intact. Oropharynx is pink with moist mucous membranes. No swelling of the mouth lips or tongue. Neck: Supple with a midline trachea. No meningeal signs or stiffness, no JVD or bruits. No Stridor. Chest: Clear to auscultation bilaterally. No wheezes or rhonchi. No increased work of breathing. Heart: regular rate and rhythm. Abdomen: Soft nontender, nondistended without rebound guarding or rigidity. Extremities: No cyanosis clubbing or edema. No calf tenderness or assymetry Spine/Back. Non tender to palpation. No CVA tenderness Skin: Good turgor without rashes. Neurologic exam: Cranial nerves two through 12 are intact. Motor and sensation are intact and symmetrical throughout. Medical Decision & Procedures ER Provider Diagnostic Interpretation: Radiology results as stated below per my review and radiologist interpretation: SINGLE VIEW CHEST CLINICAL HISTORY: Atypical chest pain. FINDINGS: An AP, portable, upright chest radiograph is compared to study dated 09/09/2017. The examination is degraded by portable technique and patient rotation. The heart is enlarged and there is atherosclerotic calcification of the thoracic aorta. The pulmonary vasculature is noncongested. Linear atelectasis is again seen in the lower lobes. The lungs and pleural spaces are otherwise clear. No pneumothorax is seen. The skeletal structures are osteopenic. Degenerative change is noted in the thoracic spine. IMPRESSION: Cardiomegaly with no acute cardiopulmonary abnormality. Electronically signed by: Conrad Easley M.D. 09/19/2017 1:44 PM Dictated Date/Time: 09/19/2017 1:43 PM Laboratory Results 09/19/17 13:53 Red Blood Count 4.65, Mean Corpuscular Volume 82.4, Mean Corpuscular Hemoglobin 28.4, Mean Corpuscular Hemoglobin Concent 34.5, Mean Platelet Volume 9.7, Neutrophils (%) (Auto) 65.5, Lymphocytes (%) (Auto) 21.2, Monocytes (%) (Auto) 10.0, Eosinophils (%) (Auto) 2.1, Basophils (%) (Auto) 0.9, Neutrophils # (Auto ) 5.88, Lymphocytes # (Auto) 1.91, Monocytes # (Auto) 0.90, Eosinophils # (Auto ) 0.19, Basophils # (Auto) 0.08 09/19/17 13:53 Test 09/19/17 13:33 09/19/17 13:53 09/19/17 13:59 Bedside Glucose 126 mg/dl (70-90) White Blood Count 8.99 K/uL (4.8-10.8) Red Blood Count 4.65 M/uL (4.2-5.4) Hemoglobin 13.2 g/dL (12.0-16.0) Hematocrit 38.3 % (37-47) Mean Corpuscular Volume 82.4 fL (80-100) Mean Corpuscular Hemoglobin 28.4 pg (25-34) Mean Corpuscular Hemoglobin Concent 34.5 g/dl (32-36) Platelet Count 188 K/uL (130-400) Mean Platelet Volume 9.7 fL (7.4-10.4) Neutrophils (%) (Auto) 65.5 % Lymphocytes (%) (Auto) 21.2 % Monocytes (%) (Auto) 10.0 % Eosinophils (%) (Auto) 2.1 % Basophils (%) (Auto) 0.9 % Neutrophils # (Auto) 5.88 K/uL (1.4-6.5) Lymphocytes # (Auto) 1.91 K/uL (1.2-3.4) Monocytes # (Auto) 0.90 K/uL (0.11-0.59) Eosinophils # (Auto) 0.19 K/uL (0-0.5) Basophils # (Auto) 0.08 K/uL (0-0.2) RDW Standard Deviation 43.4 fL (36.4-46.3) RDW Coefficient of Variation 14.5 % (11.5-14.5) Immature Granulocyte % (Auto) 0.3 % Immature Granulocyte # (Auto) 0.03 K/uL (0.00-0.02) Prothrombin Time 10.3 SECONDS (9.0-12.0) Prothromb Time International Ratio 1.0 (0.9-1.1) Activated Partial Thromboplast Time 29.6 SECONDS (21.0-31.0) Partial Thromboplastin Ratio 1.1 D-Dimer 280 ug/L FEU (0-500) Anion Gap 7.0 mmol/L (3-11) Est Creatinine Clear Calc Drug Dose 36.6 ml/min Estimated GFR () 43.1 Estimated GFR (Non- 37.2 BUN/Creatinine Ratio 19.4 (10-20) Calcium Level 9.6 mg/dl (8.5-10.1) Total Bilirubin 0.3 mg/dl (0.2-1) Direct Bilirubin < 0.1 mg/dl (0-0.2) Aspartate Amino Transf (AST/SGOT) 4 U/L (15-37) Alanine Aminotransferase (ALT/SGPT) 24 U/L (12-78) Alkaline Phosphatase 75 U/L (45-117) Total Creatine Kinase 28 U/L (26-192) Creatine Kinase MB 0.8 ng/ml (0.5-3.6) Creatine Kinase MB Ratio 2.9 (0-3.0) Total Protein 7.3 gm/dl (6.4-8.2) Albumin 3.7 gm/dl (3.4-5.0) Lipase 488 U/L (73-393) Bedside Troponin I < 0.030 ng/ml (0-0.045) Laboratory studies as stated above per my review. ECG Per My Interpretation Indication: chest pain Rate (beats per minute): 65 Rhythm: normal sinus Findings: other (No PVCs, No MAXIME/STD, poor r-wave progression, poor baseline. ) Comparison ECG Date: 09/09/2017 Change: no significant change ED Course 1316: Past medical records reviewed. The patient was evaluated in room C7, and a complete history and physical examination were performed. 1508: The patient is agreeable to an inpatient stay at this time. 1518: I discussed the case with Dr. Vince Stone - [facility]ist. He would like me to discuss the case with Dr. Danita Ma Cardiology. 1521: I discussed the case with Dr. Danita Ma Cardiology. He agrees with an inpatient stay secondary to the elevated troponin. 1608: I discussed with Dr. Vince Stone again. He will accept the patient for further treatment. Medical Decision Differential Diagnosis includes; Acute Coronary syndrome, arrhythmia, electrolyte or metabolic abnormality, congestive heart failure, aortic disease, and pulmonary disease. This patient comes in as described above. She was placed in room C7. She is here for treatment and evaluation of intermittent chest pain. She had an episode that was pretty severe last evening. She was just in the hospital and discharged 6 days ago. At that time, she had had a borderline elevated troponin and high blood pressure but she also had a negative nuclear medicine stress test. She has not had a cath. She has no symptoms at present. IV access established and blood work was obtained. EKG and chest x-ray were also obtained. Her EKG does not suggest acute coronary syndrome or arrhythmia upon my interpretation. She has remained asymptomatic today. Her her EKG is not changed compared to old. Her troponin is not elevated now. Chest x-ray does not show congestive heart failure pneumonia or pneumothorax. She has no significant electrolyte or metabolic abnormalities. I do think she needs to be observed/admitted for further treatment and evaluation. she may also potentially need a cardiac cath as she has ongoing chest pain off and on. I discussed this with Dr. Narayan and also Dr. Giang who agreed with the plan. Medication Reconcilliation Current Medication List: was personally reviewed by me Blood Pressure Screening Patient's blood pressure: Elevated blood pressure Referred to Hospitalist Consults Time Called: 151 Consulting Physician: Dr. Vince SANTANA Hospitalist Returned Call: 1518 I discussed the case with Dr. Vince SANTANA Hospitalist. He would like me to discuss the case with Dr. Samayoa - Cardiology. Additional Consults: Time Called: 151 Consulted Physician: Dr. Samayoa - Cardiology Returned Call: 1521 Additional Comments: I discussed the case with Dr. Dantia Ma Cardiology. He agrees with an inpatient stay secondary to the elevated troponin. Impression Primary Impression: Precordial chest pain Additional Impression: Unstable angina Scribe Attestation The scribe's documentation has been prepared under my direction and personally reviewed by me in its entirety. I confirm that the note above accurately reflects all work, treatment, procedures, and medical decision making performed by me. Departure Information Dispostion Being Evaluated By Hospitalist Referrals Cinthia Rhoades M.D. (PCP) Patient Instructions My [facility] Problem Qualifiers
[2017-09-19 14:07] LABS: BASO % 0.9 %; BASO ABS # 0.08 K/uL (0-0.2); EOS % 2.1 %; EOS ABS # 0.19 K/uL (0-0.5); HEMATOCRIT 38.3 % (37-47); HEMOGLOBIN 13.2 g/dL (12.0-16.0); IG# 0.03 K/uL (0.00-0.02); LYMPH % 21.2 %; LYMPH ABS # 1.91 K/uL (1.2-3.4); MEAN CELL VOLUME 82.4 fL (80-100); MEAN CORPUSCULAR HEMOGLOBIN 28.4 pg (25-34); MEAN CORPUSCULAR HGB CONC 34.5 g/dl (32-36); MEAN PLATELET VOLUME 9.7 fL (7.4-10.4); NEUT % 65.5 %; NEUT ABS # 5.88 K/uL (1.4-6.5); PLATELET COUNT 188 K/uL (130-400); RED CELL DISTRIBUTION WIDTH CV 14.5 % (11.5-14.5); RED CELL DISTRIBUTION WIDTH SD 43.4 fL (36.4-46.3); WHITE BLOOD COUNT 8.99 K/uL (4.8-10.8)
[2017-09-19 14:12] LABS: PTT PATIENT 29.6 SECONDS (21.0-31.0)
[2017-09-19 14:36] LABS: GLUCOSE 114 mg/dl (70-99)
[2017-09-19 14:37] LABS: BLOOD UREA NITROGEN 27 mg/dl (7-18); CALCIUM 9.6 mg/dl (8.5-10.1); CARBON DIOXIDE 25 mmol/L (21-32); POTASSIUM 4.2 mmol/L (3.5-5.1); SODIUM 137 mmol/L (136-145); TOTAL PROTEIN 7.3 gm/dl (6.4-8.2)
[2017-09-19 14:38] LABS: ALBUMIN 3.7 gm/dl (3.4-5.0); ALKALINE PHOSPHATASE 75 U/L (45-117); ALT/SGPT 24 U/L (12-78); AST/SGOT 4 U/L (15-37); CKMB 0.8 ng/ml (0.5-3.6); LIPASE 488 U/L (73-393)
[2017-09-19] MEDS ORDERED: GLUCOSE 10 TABS/TUBE PO PRN (17:15)
[2017-09-19] MEDS ORDERED: ZOLPIDEM TARTRATE 5 MG TAB PO PRN ×2 (17:15)
[2017-09-19] MEDS ORDERED: ALUMINUM/MAGNESIUM/SIMETH (MAALOX MAX) 30 ML UDC PO PRN (17:15)
[2017-09-19] MEDS ORDERED: POLYETHYLENE (MIRALAX) 17 GM PACK PO PRN (17:15)
[2017-09-19] MEDS ORDERED: NITROGLYCERIN 0.4 MG SL PER TAB CHARGE SL PRN (17:15)
[2017-09-19] MEDS ORDERED: GLUCAGON FOR INJ 1 MG VIAL SQ PRN (17:15)
[2017-09-19] MEDS ORDERED: DEXTROSE 50% 50 ML SYR IV PRN (17:15)
[2017-09-19] MEDS ORDERED: ONDANSETRON INJ 2 MG/ML 2 ML VIAL IV PRN (17:15)
[2017-09-19] MEDS ORDERED: MAGNESIUM HYDROXIDE SUSP 30 ML UDC PO PRN (17:15)
[2017-09-19] MEDS ORDERED: GLUCOSE 40% GEL 15 GM TUBE PO PRN (17:15)
[2017-09-19] MEDS ORDERED: MoRPHine SULFATE 2 MG/ML CARP IV PRN (17:15)
--- NOTE | 2017-09-19 18:06 | Cardiology Consultation ---
Cardiology Consultation Date of Consultation: Sep 19, 2017. Requesting Physician: Dr. Stone Reason for Consultation: Chest pain Pt evaluation today including: conversation w/ patient, conversation w/ family , physical exam, lab review, review of studies, review of inpatient medication list History of Present Illness This is a 71-year-old woman who has a history of atrial fibrillation going back approximately to 2008 at which time I believe her episodes were paroxysmal ( self terminating) however she was started on amiodarone which was continued for 2-1/2 years and was discontinued in early 2011. To my knowledge other antiarrhythmics were not used first, this was through the [facility]. She then had recurrence of her atrial arrhythmia, only this time it was persistent rather than paroxysmal. Her symptoms started around October 18, 2011 and she was hospitalized for it. she was started on warfarin, which she did not tolerate and was subsequently switched to Pradaxa which I believe was only started around January 18, 2012 (she was not on any anticoagulant for some time in the interim). She was evaluated in [facility] after her hospitalization here in October,, they recommended antiarrhythmic therapy with flecainide followed by cardioversion if needed. She preferred to be followed locally and we did start flecainide 50 mg twice a day followed by cardioversion on February. This was successful in restoring sinus rhythm. She was having some fatigue related to her metoprolol with possible bradycardia therefore we discontinue this and digoxin. Instead I started Bystolic to also help with her hypertension. Her blood pressure is not been well-controlled in general and she has been resistant to increasing medications in the past. She had recurrence of her atrial fibrillation and required cardioversion again in mid June 2015. Eliquis was initiated at that time and she has remained on it. Her flecainide dose has also been increased to 100 mg twice a day. She does not have a history of known coronary artery disease, however presented with precordial chest discomfort as well as severe hypertension on September 09, 2017. Evaluation at that time included cardiac enzymes which were slightly elevated (peak 0.084) although the second measurement was slightly higher than the first. Her blood pressure was controlled, she did not have recurrent symptoms and stress testing was performed on September 13, 2017 (this was a pharmacologic Cardiolite study) which was negative for ischemia. She was discharged in hopes of obtaining better blood pressure control with the thought being that this was demand ischemia from severe hypertension. She now presents with recurrent chest discomfort. At 4 AM on the day of admission she awoke with substernal chest discomfort radiating to the left chest and in her back, she presented to the hospital where initial evaluation showed normal cardiac enzymes and no significant ECG changes. The pain was relatively brief, lasting perhaps 30 minutes, but she feels it was much more severe than in the past. She may have had some shortness of breath associated with it. After arriving in the emergency room she has had no further discomfort. Past Medical/Surgical History (1) History of section Hypertension Paroxysmal atrial fibrillation Family History Diabetes mellitus FHx: heart disease Hypertension Social History Smoking Status: Never Smoker History of Alcohol Use: No Review of Systems Constitutional: No fever, No weight loss, No weakness Respiratory: No cough, No wheezing, No shortness of breath, No dyspnea on exertion Cardiac: + see HPI, + chest pain, No orthopnea, No PND, No edema, No palpitations Abdomen: No pain, No nausea, No vomiting, No diarrhea, No GI bleeding Female : No problem reported Neurologic: No paralysis, No weakness, No numbness/tingling, No balance problems Heme: No abnormal bleeding/bruising, No clotting problems Endo: No fatigue Skin: No problem reported All Other Systems: Reviewed and Negative Allergies Coded Allergies: Acetaminophen (Verified Allergy, Unknown, ., 09/19/17) Propoxyphene (Verified Allergy, Unknown, Nausea, 09/19/17) Uncoded Allergies: UNKNOWN ANITBIOTICS (Allergy, Unknown, ., 10/18/11) Medications Current Inpatient Medications Medications (Trade) Dose Ordered Sig/Ross Route Start Time Stop Time Status Last Admin Dose Admin Carvedilol (Coreg Tab) 6.25 mg BID PO 09/19/17 21:00 10/19/17 20:59 UNV Cyanocobalamin (Vitamin B-12 Tab) 500 mcg DAILY PO 09/20/17 09:00 10/20/17 08:59 UNV Flecainide Acetate (Tambocor Tab) 100 mg BID PO 09/19/17 21:00 10/19/17 20:59 UNV Phytonadione (Mephyton Tab) 15 mg DAILY PO 09/20/17 09:00 10/20/17 08:59 UNV Pravastatin Sodium (Pravachol Tab) 20 mg HS PO 09/19/17 21:00 10/19/17 20:59 UNV Ranitidine HCl (zANTac TAB) 150 mg HS PO 09/19/17 21:00 10/19/17 20:59 UNV Non-Formulary Medication (Apixaban (Eliquis)) 5 mg BID PO 09/19/17 21:00 10/19/17 20:59 UNV Non-Formulary Medication (Diltiazem HCl Coated Beads (Diltiazem HCl ER)) 240 mg DAILY PO 09/20/17 09:00 10/20/17 08:59 UNV Heparin Sodium (Porcine) (Heparin Sq 5000 Unit/0.5ml) 5,000 unit Q12 SQ 09/19/17 21:00 10/19/17 20:59 UNV Sodium Chloride 1,000 ml @ 35 mls/hr Q24H IV 09/19/17 17:10 10/19/17 17:09 UNV Al Hydrox/Mg Hydrox/Simethicone (Maalox Max Susp) 15 ml Q4H PRN PO 09/19/17 17:15 10/19/17 17:14 Magnesium Hydroxide (Milk Of Magnesia Susp) 30 ml Q12H PRN PO 09/19/17 17:15 10/19/17 17:14 Zolpidem Tartrate (Ambien Tab) 5 mg HSZ PRN PO 09/19/17 17:15 10/19/17 17:14 Ondansetron HCl (Zofran Inj) 4 mg Q6H PRN IV 09/19/17 17:15 10/19/17 17:14 Nitroglycerin (Nitrostat Tab) 0.4 mg UD PRN SL 09/19/17 17:15 10/19/17 17:14 Morphine Sulfate (MoRPHine SULFATE INJ) 2 mg Q30M PRN IV 09/19/17 17:15 10/03/17 17:14 Polyethylene (Miralax Powder Packet) 17 gm DAILY PRN PO 09/19/17 17:15 10/19/17 17:14 Insulin Aspart (novoLOG ASPART) SLIDING SCALE If C... ACHS SC 09/19/17 21:00 10/19/17 20:59 Glucose (Glucose 40% Gel) 15-30 GRAMS 15 GRAMS... UD PRN PO 09/19/17 17:15 10/19/17 17:14 Glucose (Glucose Chew Tab) 4-8 Tablets 4 Tabl... UD PRN PO 09/19/17 17:15 10/19/17 17:14 Dextrose (Dextrose 50% 50ML Syringe) 25-50ML OF 50% DW IV FOR... UD PRN IV 09/19/17 17:15 10/19/17 17:14 Glucagon (Glucagon Inj) 1 mg UD PRN SQ 09/19/17 17:15 10/19/17 17:14 Acetylcysteine (Acetylcysteine Cap) 1,200 mg BID STAT PO 09/19/17 17:23 09/19/17 17:24 UNV Physical Exam Vital Signs Past 12 Hours Date Time Temp Pulse Resp B/P (MAP) Pulse Ox O2 Delivery O2 Flow Rate FiO2 09/19/17 17:14 65 09/19/17 16:31 58 20 165/79 94 Room Air 09/19/17 16:04 57 20 171/85 94 Room Air 09/19/17 15:57 58 19 167/77 95 Room Air 09/19/17 14:08 60 20 150/81 94 Room Air 09/19/17 13:13 63 09/19/17 12:54 36.4 68 20 179/73 96 Room Air Constitutional: General Apperance: heathly-appearing Level of Distress: NAD Psychiatric: Mental Status: active & alert Head: normocephalic Eyes: EOM: EOMI ENMT: normal ENT inspection, hearing grossly normal Neck: supple, no masses Lungs: Respiratory effort: no dyspnea, good air movement Auscultation: breath sounds normal, no wheezing Cardiovascular: Heart Auscultation: RRR, no murmurs, no rubs, no gallops Peripheral Pulses: Bruits: none appreciated Abdomen: Bowel Sounds: normal Inspection & Palpation: soft, no tenderness, guarding & rebound, no masses Musculoskeletal: normal strength (5/5 throughout) Extremities: no edema Neurologic: Cranial Nerves: grossly intact Sensation: grossly intact Data Laboratory Results: Last 24 Hours Test 09/19/17 13:33 09/19/17 13:53 09/19/17 13:59 Bedside Glucose 126 mg/dl White Blood Count 8.99 K/uL Red Blood Count 4.65 M/uL Hemoglobin 13.2 g/dL Hematocrit 38.3 % Mean Corpuscular Volume 82.4 fL Mean Corpuscular Hemoglobin 28.4 pg Mean Corpuscular Hemoglobin Concent 34.5 g/dl Platelet Count 188 K/uL Mean Platelet Volume 9.7 fL Neutrophils (%) (Auto) 65.5 % Lymphocytes (%) (Auto) 21.2 % Monocytes (%) (Auto) 10.0 % Eosinophils (%) (Auto) 2.1 % Basophils (%) (Auto) 0.9 % Neutrophils # (Auto) 5.88 K/uL Lymphocytes # (Auto) 1.91 K/uL Monocytes # (Auto) 0.90 K/uL Eosinophils # (Auto) 0.19 K/uL Basophils # (Auto) 0.08 K/uL RDW Standard Deviation 43.4 fL RDW Coefficient of Variation 14.5 % Immature Granulocyte % (Auto) 0.3 % Immature Granulocyte # (Auto) 0.03 K/uL Prothrombin Time 10.3 SECONDS Prothromb Time International Ratio 1.0 Activated Partial Thromboplast Time 29.6 SECONDS Partial Thromboplastin Ratio 1.1 Sodium Level 137 mmol/L Potassium Level 4.2 mmol/L Chloride Level 105 mmol/L Carbon Dioxide Level 25 mmol/L Anion Gap 7.0 mmol/L Blood Urea Nitrogen 27 mg/dl Creatinine 1.40 mg/dl Est Creatinine Clear Calc Drug Dose 36.6 ml/min Estimated GFR () 43.1 Estimated GFR (Non- 37.2 BUN/Creatinine Ratio 19.4 Random Glucose 114 mg/dl Calcium Level 9.6 mg/dl Total Bilirubin 0.3 mg/dl Direct Bilirubin < 0.1 mg/dl Aspartate Amino Transf (AST/SGOT) 4 U/L Alanine Aminotransferase (ALT/SGPT) 24 U/L Alkaline Phosphatase 75 U/L Total Creatine Kinase 28 U/L Creatine Kinase MB 0.8 ng/ml Creatine Kinase MB Ratio 2.9 Total Protein 7.3 gm/dl Albumin 3.7 gm/dl Lipase 488 U/L Bedside Troponin I < 0.030 ng/ml Imaging: No acute disease EKG: Sinus rhythm with borderline first-degree AV block, poor R-wave progression , no acute changes Telemetry reviewed: In the emergency room her rhythm has been sinus with no atrial fibrillation Assessment & Plan 1. Chest pain: The character of the discomfort is worrisome, although the onset is not consistent with angina but it is similar to what she experienced at her last hospitalization and she did have an enzyme leak then. We attributed the enzyme leak to her severe hypertension at the time, and that may well have been the case. This time her blood pressure is better controlled and she does not have an enzyme leak so far. The stress test was negative. Stress tests can be wrong however and I am concerned about the ongoing symptoms. They could be reflux, but that may be a diagnosis of exclusion. I think the safest approach is to perform catheterization. I discussed it with her and her and they are agreeable. I have her tentatively set up for tomorrow, probably late morning. I will make her n.p.o. after midnight but she tells me she tends to be hypoglycemic if she does not eat. 2. Atrial fibrillation: Rhythm has been stable on flecainide and we have not documented atrial fibrillation recently. I would recommend continuing it, holding her anticoagulation during the procedure should not be much risk. Thank you for allowing me to participate in her care.
[2017-09-19 18:36] VITALS: BP 180/83; PULSE 60; TEMP 36.6; O2SAT 96; Ht 157.5 cm; Wt 85.5 kg
[2017-09-19 18:59] VITALS: BP 179/69
--- NOTE | 2017-09-19 19:06 | History and Physical ---
History & Physical Date & Time of Service: Sep 19, 2017 at 18:53 Chief Complaint: Unstable Angina Primary Care Physician: Cinthia Rhoades M.D. History of Present Illness Source: patient, family 72-year-old female with past medical history of hypertension, diabetes mellitus on oral hypoglycemic, dyslipidemia and atrial fibrillation. Patient was recently admitted to the hospital with intermittent chest pain, had a 2D echo and nuclear stress test that were both within normal limits. Except for diastolic dysfunction grade 2. Patient was discharged home and was chest pain free for a while. This morning at 4 AM patient woke up with substernal chest pain referred to the left side of the chest, describes the pain as pressure and rated as 8 or 9 out of 10. It lasted about 30 minutes. Patient came back to the hospital for further evaluation and management. Pain was associated with nausea but no shortness of breath or diaphoresis. No aggravating or relieving factors. Patient said that the pain improved spontaneously and currently she is chest pain-free. Case was discussed with with sketch liner who is considering cardiac cath for positive negative stress test. Family History Diabetes mellitus FHx: heart disease Hypertension Social History Smoking Status: Never Smoker Drug Use: none Marital Status: Housing status: lives with family Occupational Status: retired Immunizations History of Influenza Vaccine: No History of Tetanus Vaccine?: Unknown Tetanus Immunization Date: Sep 17, 2011 History of Pneumococcal: No History of Hepatitis B Vaccine: No Allergies Coded Allergies: Acetaminophen (Verified Allergy, Unknown, ., 09/19/17) Propoxyphene (Verified Allergy, Unknown, Nausea, 09/19/17) Uncoded Allergies: UNKNOWN ANITBIOTICS (Allergy, Unknown, ., 10/18/11) Home Medications Scheduled Apixaban (Eliquis), 5 MG PO BID Carvedilol (Coreg), 6.25 MG PO BID Cyanocobalamin (Vitamin B-12), 500 MCG PO DAILY Diltiazem HCl Coated Beads (Diltiazem HCl ER), 240 MG PO DAILY Flecainide (Tambocor), 100 MG PO BID Furosemide (Lasix), 20 MG PO EDEMA Garlic (Garlic), 400 MG PO DAILY Glipizide (Glucotrol), 10 MG PO AMPM Hydrochlorothiazide (Hctz), 12.5 MG PO QAM Metformin Hcl (Glucophage), 500 MG PO BIDM Nutritional Supplements (Grapeseed Extract), 1 CAP PO DAILY Phytonadione (Mephyton), 15 MG PO DAILY Potassium Chloride (Micro-K Ext Rel), 10 MEQ PO DAILY Pravastatin (Pravachol ), 20 MG PO HS Ranitidine Hcl (Zantac), 150 MG PO HS Sitagliptin (Januvia), 50 MG PO DAILY Valsartan (Diovan), 160 MG PO BID [Menatetreone], 3 TABS PO DAILY Review of Systems Review of system Constitutional: No fever / no chills / no sweats / no weakness / no fatigue Eyes: no blurring of vision / no eye pain / no discharge / no redness ENT: no hearing loss / no epistaxis /no swallowing problems Respiratory: no cough / no wheezing / no SOB / no hemoptysis Cardiovascular: Chest pain as mentioned in HPI/ no lower extremity edema / no palpitation Abdomen: no pain / no nausea / no vomiting / no constipation Musculoskeletal: no joint pain / no muscle pain / no joint swelling Genitourinary: no dysuria / no incontinence / no urinary retention Neurologic: no focal weakness / no numbness/tingling / no ataxia Psychiatric: no depression symptoms / no anxiety / no insomnia Endocrine: no excessive thirst / no excessive urination Hematologic: no abnormal bleeding / no bruising / no LN swelling Skin: No rash / no pallor Physical Exam Vital Signs Date Time Temp Pulse Resp B/P (MAP) Pulse Ox O2 Delivery O2 Flow Rate FiO2 09/19/17 18:36 36.6 60 18 180/83 96 Room Air 09/19/17 17:51 60 18 161/74 93 Room Air 09/19/17 17:14 65 09/19/17 16:31 58 20 165/79 94 Room Air 09/19/17 16:04 57 20 171/85 94 Room Air 09/19/17 15:57 58 19 167/77 95 Room Air 09/19/17 14:08 60 20 150/81 94 Room Air 09/19/17 13:13 63 09/19/17 12:54 36.4 68 20 179/73 96 Room Air Physical examination General patient appears to be comfortable, not in acute distress HEENT: Atraumatic , normocephalic /no jaundice /no pallor /anicteric /no dry mucous membrane /normal external ear inspection Neck: Supple /no swelling /central trach Heart: S1/S2 normal/regular rate and rhythm/no gallop /no rub /no murmur Lungs: Clear to auscultation bilaterally/normal chest with expansion/no rhonchi/ no rales/no wheezing/no use of accessory muscles of respiration Abdomen: Soft/nontender/no guarding/no rebound/no organomegaly/no pulsatile mass Musculoskeletal: No swelling/no edema/no tenderness/normal range of motion Neuro exam: Awake alert oriented 3/cranial nerves II through XII appear to be intact/sensation intact/moves all extremities/no abnormal movements Psychiatric evaluation: No depressed mood/normal affect Skin: No rash on exposed skin area/no erythema Extremity: Normal pulse/no pitting edema/no clubbing or cyanosis Endocrine/lymphatic: No obvious lymphadenopathy /no lymphedema Diagnostics Laboratory Results Results Past 24 Hours Test 09/19/17 13:33 09/19/17 13:53 09/19/17 13:59 Range/Units Bedside Glucose 126 70-90 mg/dl White Blood Count 8.99 4.8-10.8 K/uL Red Blood Count 4.65 4.2-5.4 M/uL Hemoglobin 13.2 12.0-16.0 g/dL Hematocrit 38.3 37-47 % Mean Corpuscular Volume 82.4 80-100 fL Mean Corpuscular Hemoglobin 28.4 25-34 pg Mean Corpuscular Hemoglobin Concent 34.5 32-36 g/dl Platelet Count 188 130-400 K/uL Mean Platelet Volume 9.7 7.4-10.4 fL Neutrophils (%) (Auto) 65.5 % Lymphocytes (%) (Auto) 21.2 % Monocytes (%) (Auto) 10.0 % Eosinophils (%) (Auto) 2.1 % Basophils (%) (Auto) 0.9 % Neutrophils # (Auto) 5.88 1.4-6.5 K/uL Lymphocytes # (Auto) 1.91 1.2-3.4 K/uL Monocytes # (Auto) 0.90 0.11-0.59 K/uL Eosinophils # (Auto) 0.19 0-0.5 K/uL Basophils # (Auto) 0.08 0-0.2 K/uL RDW Standard Deviation 43.4 36.4-46.3 fL RDW Coefficient of Variation 14.5 11.5-14.5 % Immature Granulocyte % (Auto) 0.3 % Immature Granulocyte # (Auto) 0.03 0.00-0.02 K/uL Prothrombin Time 10.3 9.0-12.0 SECONDS Prothromb Time International Ratio 1.0 0.9-1.1 Activated Partial Thromboplast Time 29.6 21.0-31.0 SECONDS Partial Thromboplastin Ratio 1.1 D-Dimer 280 0-500 ug/L FEU Sodium Level 137 136-145 mmol/L Potassium Level 4.2 3.5-5.1 mmol/L Chloride Level 105 98-107 mmol/L Carbon Dioxide Level 25 21-32 mmol/L Anion Gap 7.0 3-11 mmol/L Blood Urea Nitrogen 27 7-18 mg/dl Creatinine 1.40 0.60-1.20 mg/dl Est Creatinine Clear Calc Drug Dose 36.6 ml/min Estimated GFR () 43.1 Estimated GFR (Non- 37.2 BUN/Creatinine Ratio 19.4 10-20 Random Glucose 114 70-99 mg/dl Calcium Level 9.6 8.5-10.1 mg/dl Total Bilirubin 0.3 0.2-1 mg/dl Direct Bilirubin < 0.1 0-0.2 mg/dl Aspartate Amino Transf (AST/SGOT) 4 15-37 U/L Alanine Aminotransferase (ALT/SGPT) 24 12-78 U/L Alkaline Phosphatase 75 45-117 U/L Total Creatine Kinase 28 26-192 U/L Creatine Kinase MB 0.8 0.5-3.6 ng/ml Creatine Kinase MB Ratio 2.9 0-3.0 Total Protein 7.3 6.4-8.2 gm/dl Albumin 3.7 3.4-5.0 gm/dl Lipase 488 73-393 U/L Bedside Troponin I < 0.030 0-0.045 ng/ml Impression Assessment and Plan 72-year-old female with past medical history of hypertension, diabetes mellitus on oral hypoglycemic, dyslipidemia and atrial fibrillation. With recent negative stress test/echo presented with recurrent chest pain Assessment Unstable angina Possible recent negative stress test Diastolic dysfunction grade 2 not in exacerbation Hypertension Atrial fibrillation Clinically suspected obstructive sleep apnea plan: admit to telemetry obtain serial cardiac enz NTG SL/topical prn CP consult sketch liner appreciated, possibly patient will go for cardiac catheterization pain management Check hemoglobin A1c hold oral diabetes medication, start her on sliding scale insulin Lipids were recently checked last admission and were within normal limits repeat EKG prn chest pain Patient was instructed to get sleep study as an outpatient Advanced Directives Existing Living Will: No Existing Power of Chief Of Surgery: No Resuscitation Status VTE Prophylaxis Will order VTE Prophylaxis: Yes
[2017-09-19] MEDS: SODIUM CHLORIDE 0.9% 1000ML 1,000 ML IV SCH (19:29)
[2017-09-19] MEDS ORDERED: NON-FORMULARY MEDICATION (Apixaban (Eliquis) 5 MG) PO SCH (21:00)
[2017-09-19] MEDS: ACETYLCYSTEINE 600 MG CAP PO SCH (21:10)
[2017-09-19] MEDS: PRAVASTATIN SOD 20 MG TAB PO SCH (21:14)
[2017-09-19] MEDS: FLECAINIDE ACETATE 100 MG TAB PO SCH (21:14)
[2017-09-19] MEDS: RANITIDINE HCL 150 MG TAB PO SCH (21:14)
[2017-09-19] MEDS: CARVEDILOL 6.25 MG TAB PO SCH (21:14)
[2017-09-19] MEDS: INSULIN ASPART 100 UNITS/ML 3 ML PEN SC SCH (21:15)
[2017-09-19] MEDS: HEPARIN SOD 5000 UNIT/0.5 ML CARP SQ SCH (21:15)
[2017-09-19 23:48] VITALS: BP 137/78; PULSE 61; TEMP 36.6; O2SAT 95
[2017-09-19 23:51] VITALS: BP 166/68; PULSE 58; TEMP 36.8; O2SAT 96
[2017-09-20] VITALS (15 sets, daily range): BP systolic 136–180; BP diastolic 54–95; PULSE 57–76; TEMP 36.3–36.8; O2SAT 90–96
[2017-09-20 05:16] LABS: BASO % 0.9 %; BASO ABS # 0.07 K/uL (0-0.2); EOS % 2.6 %; EOS ABS # 0.21 K/uL (0-0.5); HEMATOCRIT 37.4 % (37-47); HEMOGLOBIN 12.6 g/dL (12.0-16.0); IG# 0.02 K/uL (0.00-0.02); LYMPH % 26.3 %; LYMPH ABS # 2.09 K/uL (1.2-3.4); MEAN CELL VOLUME 82.6 fL (80-100); MEAN CORPUSCULAR HEMOGLOBIN 27.8 pg (25-34); MEAN CORPUSCULAR HGB CONC 33.7 g/dl (32-36); MEAN PLATELET VOLUME 9.9 fL (7.4-10.4); MONO % 9.5 %; MONO ABS # 0.76 K/uL (0.11-0.59); NEUT % 60.4 %; NEUT ABS # 4.81 K/uL (1.4-6.5); PLATELET COUNT 189 K/uL (130-400); RED CELL DISTRIBUTION WIDTH CV 14.5 % (11.5-14.5); RED CELL DISTRIBUTION WIDTH SD 43.8 fL (36.4-46.3); WHITE BLOOD COUNT 7.96 K/uL (4.8-10.8)
[2017-09-20 05:42] LABS: ALBUMIN 3.3 gm/dl (3.4-5.0); ALT/SGPT 23 U/L (12-78); AST/SGOT 7 U/L (15-37); BLOOD UREA NITROGEN 26 mg/dl (7-18); CARBON DIOXIDE 25 mmol/L (21-32); CREATININE 1.37 mg/dl (0.60-1.20); GLUCOSE 127 mg/dl (70-99); POTASSIUM 4.1 mmol/L (3.5-5.1); SODIUM 138 mmol/L (136-145)
[2017-09-20 05:47] LABS: ALKALINE PHOSPHATASE 69 U/L (45-117); TOTAL PROTEIN 6.7 gm/dl (6.4-8.2)
[2017-09-20 06:58] LABS: HEMOGLOBIN A1C 7.8 % (4.5-5.6)
[2017-09-20] MEDS: INSULIN ASPART 100 UNITS/ML 3 ML PEN SC SCH ×4 (07:36→21:44)
[2017-09-20] MEDS: FLECAINIDE ACETATE 100 MG TAB PO SCH ×2 (08:02→21:42)
[2017-09-20] MEDS: ACETYLCYSTEINE 600 MG CAP PO SCH (08:03)
[2017-09-20] MEDS: DILTIAZEM HCL 240 MG CAPCR PO SCH (08:03)
[2017-09-20] MEDS: CARVEDILOL 6.25 MG TAB PO SCH ×2 (08:03→21:42)
[2017-09-20] MEDS: CYANOCOBALAMIN 500 MCG TAB (VIT B-12) PO SCH (08:04)
[2017-09-20] MEDS: HEPARIN SOD 5000 UNIT/0.5 ML CARP SQ SCH ×2 (08:15→21:45)
--- NOTE | 2017-09-20 08:50 | Hospitalist Progress Note ---
Hospitalist Progress Note Date of Service Sep 20, 2017. (Kimmy Alonso PA-C) Subjective Pt evaluation today including: conversation w/ patient, conversation w/ family , physical exam, chart review, lab review, review of studies, review of inpatient medication list Patient seen and evaluated prior to cardiac catheterization. Telemetry reviewed with NSR and sinus christie in 50-60s. No further CP this AM and reports feeling well. Underwent cardiac cath with PCI to LAD today. Constitutional: No fever, No chills Respiratory: No cough, No shortness of breath Cardiovascular: No chest pain, No palpitations Abdomen: No pain, No nausea, No vomiting, No diarrhea, No constipation Musculoskeletal: No swelling, No calf pain Female : No dysuria Heme: No abnormal bleeding/bruising Skin: No rash (Kimmy Alonso PA-C) Objective Vital Signs Date Time Temp Pulse Resp B/P (MAP) Pulse Ox O2 Delivery O2 Flow Rate FiO2 09/20/17 07:05 36.7 59 18 180/78 (112) 94 Room Air 09/20/17 04:31 Room Air 09/20/17 03:35 36.8 57 18 157/76 (103) 95 Room Air 09/20/17 00:07 Room Air 09/19/17 23:51 36.8 58 18 166/68 (100) 96 09/19/17 21:33 Room Air 09/19/17 18:59 179/69 (105) 09/19/17 18:36 36.6 60 18 180/83 96 Room Air 09/19/17 17:51 60 18 161/74 93 Room Air 09/19/17 17:14 65 09/19/17 16:31 58 20 165/79 94 Room Air 09/19/17 16:04 57 20 171/85 94 Room Air 09/19/17 15:57 58 19 167/77 95 Room Air 09/19/17 14:08 60 20 150/81 94 Room Air 09/19/17 13:13 63 09/19/17 12:54 36.4 68 20 179/73 96 Room Air (Kimmy Alonso PA-C) Physical Exam General Appearance: WD/WN, no apparent distress Eyes: sclerae normal ENT: hearing grossly normal Neck: supple, no JVD, trachea midline Respiratory/Chest: lungs clear, normal breath sounds, no respiratory distress, no accessory muscle use Cardiovascular: regular rate, rhythm, no gallop, no murmur Abdomen: normal bowel sounds, non tender, soft Extremities: no calf tenderness Neurologic/Psychiatric: alert Skin: normal color, warm/dry (Kimmy Alonso, RADHA) Laboratory Results Last 24 Hours Test 09/19/17 13:33 09/19/17 13:53 09/19/17 13:59 09/19/17 19:59 Bedside Glucose 126 mg/dl 208 mg/dl White Blood Count 8.99 K/uL Red Blood Count 4.65 M/uL Hemoglobin 13.2 g/dL Hematocrit 38.3 % Mean Corpuscular Volume 82.4 fL Mean Corpuscular Hemoglobin 28.4 pg Mean Corpuscular Hemoglobin Concent 34.5 g/dl Platelet Count 188 K/uL Mean Platelet Volume 9.7 fL Neutrophils (%) (Auto) 65.5 % Lymphocytes (%) (Auto) 21.2 % Monocytes (%) (Auto) 10.0 % Eosinophils (%) (Auto) 2.1 % Basophils (%) (Auto) 0.9 % Neutrophils # (Auto) 5.88 K/uL Lymphocytes # (Auto) 1.91 K/uL Monocytes # (Auto) 0.90 K/uL Eosinophils # (Auto) 0.19 K/uL Basophils # (Auto) 0.08 K/uL RDW Standard Deviation 43.4 fL RDW Coefficient of Variation 14.5 % Immature Granulocyte % (Auto) 0.3 % Immature Granulocyte # (Auto) 0.03 K/uL Prothrombin Time 10.3 SECONDS Prothromb Time International Ratio 1.0 Activated Partial Thromboplast Time 29.6 SECONDS Partial Thromboplastin Ratio 1.1 D-Dimer 280 ug/L FEU Sodium Level 137 mmol/L Potassium Level 4.2 mmol/L Chloride Level 105 mmol/L Carbon Dioxide Level 25 mmol/L Anion Gap 7.0 mmol/L Blood Urea Nitrogen 27 mg/dl Creatinine 1.40 mg/dl Est Creatinine Clear Calc Drug Dose 36.6 ml/min Estimated GFR () 43.1 Estimated GFR (Non- 37.2 BUN/Creatinine Ratio 19.4 Random Glucose 114 mg/dl Calcium Level 9.6 mg/dl Total Bilirubin 0.3 mg/dl Direct Bilirubin < 0.1 mg/dl Aspartate Amino Transf (AST/SGOT) 4 U/L Alanine Aminotransferase (ALT/SGPT) 24 U/L Alkaline Phosphatase 75 U/L Total Creatine Kinase 28 U/L Creatine Kinase MB 0.8 ng/ml Creatine Kinase MB Ratio 2.9 Total Protein 7.3 gm/dl Albumin 3.7 gm/dl Lipase 488 U/L Bedside Troponin I < 0.030 ng/ml Test 09/19/17 22:46 09/20/17 04:44 09/20/17 06:41 Troponin I 0.019 ng/ml < 0.015 ng/ml White Blood Count 7.96 K/uL Red Blood Count 4.53 M/uL Hemoglobin 12.6 g/dL Hematocrit 37.4 % Mean Corpuscular Volume 82.6 fL Mean Corpuscular Hemoglobin 27.8 pg Mean Corpuscular Hemoglobin Concent 33.7 g/dl Platelet Count 189 K/uL Mean Platelet Volume 9.9 fL Neutrophils (%) (Auto) 60.4 % Lymphocytes (%) (Auto) 26.3 % Monocytes (%) (Auto) 9.5 % Eosinophils (%) (Auto) 2.6 % Basophils (%) (Auto) 0.9 % Neutrophils # (Auto) 4.81 K/uL Lymphocytes # (Auto) 2.09 K/uL Monocytes # (Auto) 0.76 K/uL Eosinophils # (Auto) 0.21 K/uL Basophils # (Auto) 0.07 K/uL RDW Standard Deviation 43.8 fL RDW Coefficient of Variation 14.5 % Immature Granulocyte % (Auto) 0.3 % Immature Granulocyte # (Auto) 0.02 K/uL Sodium Level 138 mmol/L Potassium Level 4.1 mmol/L Chloride Level 105 mmol/L Carbon Dioxide Level 25 mmol/L Anion Gap 8.0 mmol/L Blood Urea Nitrogen 26 mg/dl Creatinine 1.37 mg/dl Est Creatinine Clear Calc Drug Dose 37.2 ml/min Estimated GFR () 44.2 Estimated GFR (Non- 38.2 BUN/Creatinine Ratio 19.3 Random Glucose 127 mg/dl Estimated Average Glucose 177 mg/dl Hemoglobin A1c 7.8 % Calcium Level 9.0 mg/dl Magnesium Level 2.4 mg/dl Total Bilirubin 0.5 mg/dl Aspartate Amino Transf (AST/SGOT) 7 U/L Alanine Aminotransferase (ALT/SGPT) 23 U/L Alkaline Phosphatase 69 U/L Total Protein 6.7 gm/dl Albumin 3.3 gm/dl Globulin 3.4 gm/dl Albumin/Globulin Ratio 1.0 Bedside Glucose 173 mg/dl (Kimmy Alonso, PA-C) Assessment and Plan 72-year-old female with past medical history of hypertension, diabetes mellitus on oral hypoglycemic, dyslipidemia and atrial fibrillation. With recent negative stress test/echo presented with recurrent chest pain Unstable Angina with Severe CAD S/P PCI to LAD: - Plan for dual anti-platelet therapy with ASA 81 mg daily and Plavix 75 mg daily for at least 6 months - Cardiology following - appreciate recommendations HTN: Uncontrolled - Will try and optimize this - does have some bradycardia - continue Diltiazem and Coreg - hold HCTZ and Losartan tonight and assess renal function in AM given cath and will add these back on and assess BP - Has had previous studies to assess for possible secondary causes but no findings to explain it Chronic Diastolic CHF without Exacerbation: - Echo - supports grade 2 Paroxysmal Atrial Fibrillation: - Flecainide 100 mg BID, Diltiazem 240 mg daily, and Coreg 6.25 mg BID - Eliquis on hold pending catheterization - possibly resumed tomorrow Possible NORA: - Planned for outpatient sleep study - which may also explain BPs Code Status: FULL RESUSCITATION Disposition: - Monitor on tele given PCI placement Discharge planning: home (Kimmy Alonso, PA-C) Attending Attestation: Pt seen/examined, chart reviewed, care plan d/w HOSSEIN Alonso. I agree w/ the [place] components of her documentation. I saw the patient post-cath - denied cp/dyspnea. Feels good. Relieved that the blockage "was fixed." VSS except BPs high pt reports all home readings were 140s systolic gen - nad, obese neck - no JVD heart - RRR lungs - minimal bibasilar dry rales abd - soft ext - right radial artery w/o hematoma; no peripheral edema A/P: chest pain, no evidence of ACS, but cath today with 95% LAD lesion s/p PCI with stent - this explains recurrent chest pain symptoms over last 2 months * nuclear stress test was falsely negative uncontrolled HTN - adjust meds T2DM - controlled appreciate cardiology assistance observe overnight hopefully home tomorrow resume elimeng tomorrisela ARDON MD (Rj Ardon MD)
[2017-09-20] MEDS ORDERED: PHYTONADIONE 5 MG TAB PO SCH (09:00)
--- NOTE | 2017-09-20 09:25 | Cardiology Follow-Up ---
Subjective Date of Service: Sep 20, 2017. Pt evaluation today including: conversation w/ patient, physical exam, lab review, review of studies, review of inpatient medication list History of Present Illness This is a 71-year-old woman who has a history of atrial fibrillation going back approximately to 2008 at which time I believe her episodes were paroxysmal ( self terminating) however she was started on amiodarone which was continued for 2-1/2 years and was discontinued in early 2011. To my knowledge other antiarrhythmics were not used first, this was through the [facility]. She then had recurrence of her atrial arrhythmia, only this time it was persistent rather than paroxysmal. Her symptoms started around October 18, 2011 and she was hospitalized for it. she was started on warfarin, which she did not tolerate and was subsequently switched to Pradaxa which I believe was only started around January 18, 2012 (she was not on any anticoagulant for some time in the interim). She was evaluated in [place] after her hospitalization here in October,, they recommended antiarrhythmic therapy with flecainide followed by cardioversion if needed. She preferred to be followed locally and we did start flecainide 50 mg twice a day followed by cardioversion on February. This was successful in restoring sinus rhythm. She was having some fatigue related to her metoprolol with possible bradycardia therefore we discontinue this and digoxin. Instead I started Bystolic to also help with her hypertension. Her blood pressure is not been well-controlled in general and she has been resistant to increasing medications in the past. She had recurrence of her atrial fibrillation and required cardioversion again in mid June 2015. Eliquis was initiated at that time and she has remained on it. Her flecainide dose has also been increased to 100 mg twice a day. She does not have a history of known coronary artery disease, however presented with precordial chest discomfort as well as severe hypertension on September 09, 2017. Evaluation at that time included cardiac enzymes which were slightly elevated (peak 0.084) although the second measurement was slightly higher than the first. Her blood pressure was controlled, she did not have recurrent symptoms and stress testing was performed on September 13, 2017 (this was a pharmacologic Cardiolite study) which was negative for ischemia. She was discharged in hopes of obtaining better blood pressure control with the thought being that this was demand ischemia from severe hypertension. She now presents with recurrent chest discomfort. At 4 AM on the day of admission she awoke with substernal chest discomfort radiating to the left chest and in her back, she presented to the hospital where initial evaluation showed normal cardiac enzymes and no significant ECG changes. The pain was relatively brief, lasting perhaps 30 minutes, but she feels it was much more severe than in the past. She may have had some shortness of breath associated with it. This morning she notes that she had a very slight episode of discomfort during the night, it was less severe than what brought her into the hospital it was of similar character. This morning she does not have any. No palpitations. Social History Smoking Status: Never Smoker History of Alcohol Use: No Review of Systems Respiratory: No cough, No wheezing, No shortness of breath, No dyspnea on exertion Cardiac: + see HPI, + chest pain, No orthopnea, No PND, No edema, No palpitations Medications Cardiovascular: Item Value Date Time Diltiazem HCl 240 mg 09/20/17 0900 (Cardizem Cd Cap) DAILY/PO 09/20/17 0803 Carvedilol 6.25 mg 09/19/17 2100 (Coreg Tab) BID/PO 09/20/17 0803 Flecainide Acetate 100 mg 09/19/17 2100 (Tambocor Tab) BID/PO 09/20/17 0802 Pravastatin Sodium 20 mg 09/19/17 2100 (Pravachol Tab) HS/PO 09/19/17 2114 Heparin Sodium 5,000 unit 09/19/17 2100 (Porcine) Q12/SQ 09/20/17 0815 (Heparin Sq 5000 Unit/0.5ml) Objective Vital Signs Past 12 Hours Date Time Temp Pulse Resp B/P (MAP) Pulse Ox O2 Delivery O2 Flow Rate FiO2 09/20/17 07:05 36.7 59 18 180/78 (112) 94 Room Air 09/20/17 04:31 Room Air 09/20/17 03:35 36.8 57 18 157/76 (103) 95 Room Air 09/20/17 00:07 Room Air 09/19/17 23:51 36.8 58 18 166/68 (100) 96 09/19/17 21:33 Room Air Last Recorded Weight-Kilograms: 86.100 Physical Exam Constitutional: General Apperance: heathly-appearing Level of Distress: NAD Lungs: Respiratory effort: no dyspnea, good air movement Auscultation: breath sounds normal, no wheezing Cardiovascular: Heart Auscultation: RRR, no murmurs, no rubs, no gallops Peripheral Pulses: Bruits: none appreciated Extremities: no edema Data Laboratory Results: Last 24 Hours Test 09/19/17 13:33 09/19/17 13:53 09/19/17 13:59 09/19/17 19:59 Bedside Glucose 126 mg/dl 208 mg/dl White Blood Count 8.99 K/uL Red Blood Count 4.65 M/uL Hemoglobin 13.2 g/dL Hematocrit 38.3 % Mean Corpuscular Volume 82.4 fL Mean Corpuscular Hemoglobin 28.4 pg Mean Corpuscular Hemoglobin Concent 34.5 g/dl Platelet Count 188 K/uL Mean Platelet Volume 9.7 fL Neutrophils (%) (Auto) 65.5 % Lymphocytes (%) (Auto) 21.2 % Monocytes (%) (Auto) 10.0 % Eosinophils (%) (Auto) 2.1 % Basophils (%) (Auto) 0.9 % Neutrophils # (Auto) 5.88 K/uL Lymphocytes # (Auto) 1.91 K/uL Monocytes # (Auto) 0.90 K/uL Eosinophils # (Auto) 0.19 K/uL Basophils # (Auto) 0.08 K/uL RDW Standard Deviation 43.4 fL RDW Coefficient of Variation 14.5 % Immature Granulocyte % (Auto) 0.3 % Immature Granulocyte # (Auto) 0.03 K/uL Prothrombin Time 10.3 SECONDS Prothromb Time International Ratio 1.0 Activated Partial Thromboplast Time 29.6 SECONDS Partial Thromboplastin Ratio 1.1 D-Dimer 280 ug/L FEU Sodium Level 137 mmol/L Potassium Level 4.2 mmol/L Chloride Level 105 mmol/L Carbon Dioxide Level 25 mmol/L Anion Gap 7.0 mmol/L Blood Urea Nitrogen 27 mg/dl Creatinine 1.40 mg/dl Est Creatinine Clear Calc Drug Dose 36.6 ml/min Estimated GFR () 43.1 Estimated GFR (Non- 37.2 BUN/Creatinine Ratio 19.4 Random Glucose 114 mg/dl Calcium Level 9.6 mg/dl Total Bilirubin 0.3 mg/dl Direct Bilirubin < 0.1 mg/dl Aspartate Amino Transf (AST/SGOT) 4 U/L Alanine Aminotransferase (ALT/SGPT) 24 U/L Alkaline Phosphatase 75 U/L Total Creatine Kinase 28 U/L Creatine Kinase MB 0.8 ng/ml Creatine Kinase MB Ratio 2.9 Total Protein 7.3 gm/dl Albumin 3.7 gm/dl Lipase 488 U/L Bedside Troponin I < 0.030 ng/ml Test 09/19/17 22:46 09/20/17 04:44 09/20/17 06:41 Troponin I 0.019 ng/ml < 0.015 ng/ml White Blood Count 7.96 K/uL Red Blood Count 4.53 M/uL Hemoglobin 12.6 g/dL Hematocrit 37.4 % Mean Corpuscular Volume 82.6 fL Mean Corpuscular Hemoglobin 27.8 pg Mean Corpuscular Hemoglobin Concent 33.7 g/dl Platelet Count 189 K/uL Mean Platelet Volume 9.9 fL Neutrophils (%) (Auto) 60.4 % Lymphocytes (%) (Auto) 26.3 % Monocytes (%) (Auto) 9.5 % Eosinophils (%) (Auto) 2.6 % Basophils (%) (Auto) 0.9 % Neutrophils # (Auto) 4.81 K/uL Lymphocytes # (Auto) 2.09 K/uL Monocytes # (Auto) 0.76 K/uL Eosinophils # (Auto) 0.21 K/uL Basophils # (Auto) 0.07 K/uL RDW Standard Deviation 43.8 fL RDW Coefficient of Variation 14.5 % Immature Granulocyte % (Auto) 0.3 % Immature Granulocyte # (Auto) 0.02 K/uL Sodium Level 138 mmol/L Potassium Level 4.1 mmol/L Chloride Level 105 mmol/L Carbon Dioxide Level 25 mmol/L Anion Gap 8.0 mmol/L Blood Urea Nitrogen 26 mg/dl Creatinine 1.37 mg/dl Est Creatinine Clear Calc Drug Dose 37.2 ml/min Estimated GFR () 44.2 Estimated GFR (Non- 38.2 BUN/Creatinine Ratio 19.3 Random Glucose 127 mg/dl Estimated Average Glucose 177 mg/dl Hemoglobin A1c 7.8 % Calcium Level 9.0 mg/dl Magnesium Level 2.4 mg/dl Total Bilirubin 0.5 mg/dl Aspartate Amino Transf (AST/SGOT) 7 U/L Alanine Aminotransferase (ALT/SGPT) 23 U/L Alkaline Phosphatase 69 U/L Total Protein 6.7 gm/dl Albumin 3.3 gm/dl Globulin 3.4 gm/dl Albumin/Globulin Ratio 1.0 Bedside Glucose 173 mg/dl Telemetry reviewed: Sinus rhythm, no significant arrhythmia Assessment and Plan 1. Chest pain: The character of the discomfort is worrisome, although the onset is not consistent with angina but it is similar to what she experienced at her last hospitalization and she did have an enzyme leak then. We attributed the enzyme leak to her severe hypertension at the time, and that may well have been the case. This time her blood pressure is better controlled and she does not have an enzyme leak so far. The stress test was negative. Stress tests can be wrong however and I am concerned about the ongoing symptoms. They could be reflux, but that may be a diagnosis of exclusion. I think the safest approach is to perform catheterization. We are planning for that this morning. 2. Atrial fibrillation: Rhythm has been stable on flecainide and we have not documented atrial fibrillation recently. I would recommend continuing it, holding her anticoagulation during the procedure should not be much risk. Thank you for allowing me to participate in her care.
--- NOTE | 2017-09-20 09:52 | Clinical Documentation Query ---
[facility] : CLINICAL DOCUMENTATION QUERIES QUERY 1 OF 3 Patient is a 72 year old female presenting for evaluation of intermittent chest pain/pressure, radiating to left side of chest. Associated symptom of nausea reported. Was recently admitted (09/09) for evaluation of abdominal bloating, dyspnea, burping, heaviness in her chest, "burning" sensation in between the scapula, as well as some nausea. She was placed on telemetry, started on heparin IV, given topical nitrates. Negative stress test. Symptoms deemed "likely due to severely uncontrolled HTN/HTN emergency". Nonetheless, documentation included "positive troponin - POA - likely due to myocardial demand ischemia/type 2 OH in setting of HTN emergency". As this occurred within the past four weeks, consider documentation as suggested below as this becomes inherently relevant to this visit per CMS coding guidelines, if documented accordingly. In your clinical opinion is this patient being managed for: ( ) Myocardial infarction type 2, within four weeks ( ) Not Agree ( ) Other explanation of clinical findings (Please Explain) ( ) Unable to determine (Please Define) ( ) Need to Discuss The medical record reflects the following clinical findings, treatment, and risk factors. Clinical Indicators: As above Treatment:She was placed on telemetry, started on heparin IV, given topical nitrates. Negative stress test Risk Factors: Age, hypertension, obesity, type 2 DM AMI and the 4 Week Reference Medicare defines an acute OH as one which has occurred within four (4) weeks of admission. The physician may render an opinion regarding a "possible" or "probable" OH based on the patient's history of symptoms, EKG changes and/or other diagnostic evidence. "Within four weeks" must be explicitly documented-- terminology such as "recent" and "remote" is not sufficient. Despite the intentions of many physicians, the documentation of "Acute Coronary Syndrome" will not capture the diagnosis of an Acute Myocardial Infarction. In coding language, "ACS" is considered an acute but unspecified form of ischemic heart disease and likely does not capture the SOI or ROM intended by the physician. *If the clinical evidence suggests a diagnosis of acute myocardial infarction, document acute myocardial infarction. *And remember, an OH is considered "acute" even if the event occurred 4 weeks prior to the encounter QUERY 2 OF 3 Admission BUN, creatinine, and estimated GFR were 27 mg/dl, 1.40 mg/dl, and 37 ml/min. Historical GFR range of 35-52 ml/min from 05/01/15 to present. Please clarify as clinically appropriate. Thank you. In your clinical opinion is this patient being managed for: ( ) Chronic kidney disease, stage 3 ( ) Not Agree ( ) Other explanation of clinical findings (Please Explain) ( ) Unable to determine (Please Define) ( ) Need to Discuss The medical record reflects the following clinical findings, treatment, and risk factors. Clinical Indicators: As above Treatment: IVF, serial chemistries, Mucomyst in preparation for cardiac catheterization. Risk Factors: Age, hypertension, atrial fibrillation, DM type 2 QUERY 3 OF 3 H&P documentation included "diastolic dysfunction grade 2 not in exacerbation". This implies, but is not synonymous with chronic diastolic CHF. She is treated with Coreg, Diltiazem, Flecainide, Lasix, HCTZ, Diovan. As appropriate, consider documentation as suggested below. Thank you. In your clinical opinion is this patient being managed for: ( ) Chronic diastolic CHF ( ) Not Agree ( ) Other explanation of clinical findings (Please Explain) ( ) Unable to determine (Please Define) ( ) Need to Discuss The medical record reflects the following clinical findings, treatment, and risk factors. Clinical Indicators: As above Treatment:She is treated with Coreg, Diltiazem, Flecainide, Lasix, HCTZ, Diovan Risk Factors: Age, hypertension, atrial fibrillation, valvular disease. Please clarify and document your clinical opinion in the progress notes and discharge summary. Terms such as "probable", "suspected", "likely", "questionable", "possible", or "still to be ruled out" are acceptable. IF IN AGREEMENT, YOU MUST DOCUMENT ABOVE DIAGNOSTIC STATEMENT IN DAILY PROGRESS NOTES AND DISCHARGE SUMMARY. This document is not part of the patient's record. Thank You, Alban Raya, RN [phone]
[2017-09-20] MEDS: SODIUM CHLORIDE 0.9% 1000ML 1,000 ML IV SCH (12:07)
--- NOTE | 2017-09-20 14:28 | Pre Sedation Assessment ---
Pre Sedation Assessment General Date of Sedation: Sep 20, 2017. Vital Signs Past 12 Hours Date Time Temp Pulse Resp B/P (MAP) Pulse Ox O2 Delivery O2 Flow Rate FiO2 09/20/17 12:00 Room Air 09/20/17 11:04 36.6 63 18 179/80 (113) 95 Room Air 09/20/17 08:00 Room Air 09/20/17 07:05 36.7 59 18 180/78 (112) 94 Room Air 09/20/17 04:31 Room Air 09/20/17 03:35 36.8 57 18 157/76 (103) 95 Room Air Review Cardiovascular: regular rate, rhythm, no edema Lungs: chest non-tender, lungs clear Pre-Sedation Airway Assessment Smoking Status: Never Smoker Hx of Sleep Apnea: No Hx of difficult intubation: No Thyro-mental Distance: > 3 Finger Breadths Oral Cavity: WNL Mallampati Classification: Class III ASA Classification: Class II Procedure Planning Contraindications for Sedation: None Current Medications Reviewed: Yes Notes The planned sedation has been discussed with the patient. Informed Consent was obtained. I have identified the patient, determined the appropriateness of sedation and have assessed the patient immediately prior to the procedure. All medicine(s) and interventions are by my order.
[2017-09-20] MEDS ORDERED: FENTANYL CITRATE INJ 50 MCG/1 ML 2 ML VIAL ONE (14:30)
[2017-09-20] MEDS ORDERED: MIDAZOLAM HCL 1 MG/ML 2ML VIAL ONE (14:30)
[2017-09-20] MEDS ORDERED: LIDOCAINE HCL 1% 20 ML VIAL ONE (14:31)
[2017-09-20] MEDS ORDERED: HEPARIN SOD (PORCINE) 1000 UNIT/ML 10 ML VIAL ONE (14:31)
[2017-09-20] MEDS ORDERED: NiCARDipine HCL INJ 2.5 MG/ML 10 ML AMP ONE (14:31)
[2017-09-20] MEDS ORDERED: NITROGLYCERIN/D5W 100MCG/ML 20ML SYR ONE (14:31)
[2017-09-20] MEDS ORDERED: CLOPIDOGREL BISULFATE 300 MG TAB PO ONE (15:14)
--- NOTE | 2017-09-20 15:43 | Cardiac Catheterization ---
Procedure Note Procedure Date Sep 20, 2017. Pre-Procedure Diagnosis Angina AUC Score 7 Post-Procedure Diagnosis Severe CAD, Successful PCI, Elevated Intracardiac Pressures Procedure(s) Performed Coronary Angiography, Left Heart Cath, Drug Eluting Stent Speech Clinician Jesus Manager [employer](s) Krishna Estimated Blood Loss 15 Medication(s) Clopidogrel, Fentanyl, Heparin, Nicardipine, Nitroglycerin, Versed, Lidocaine 1% Summary of Findings Indication: Unstable angina Access: 6Fr right radial artery Catheters: [place]; EBU 3.75 guide Findings: LM - Angiographically normal LAD - Large caliber vessel, proximal luminal irregularities before 95%+ proximal into mid segment stenosis; distal luminal irregularities as wraps around apex Circumflex - Large caliber vessel, luminal irregularities in OM1 and distal segment. RCA - Dominant, moderate caliber, 20-30% late-proximal to mid segment disease, 30% diffuse late-mid disease; luminal irregularities in R-PDA LVEDP - 23 -- PCI -- Antithrombotic therapy: Heparin, Clopidogrel Procedure: LM cannulated with EBU 3.75 guide BMW wire passed across lesion into distal vessel LAD lesion predilated with 3.0 compliant balloon Dilated lesion stented with 4.0 x 23 Xience RUSLAN Stent post-dilated with 4.0 noncompliant balloon IC vasodilators administered for spasm Post procedure JOSEPH 3 flow, stent well expanded with minimal residual stenosis and no apparent cardiac complications. Arterial Closure: TR Band Summary: 1. Severe single vessel coronary artery disease - 95+% proximal to mid LAD stenosis 2. Hypertension with elevated intracardiac filling pressure 3. Successful PCI of proximal-mid LAD with one drug-eluting stent (4.0 x 23 Xience). Recommendations: To PCU for continued monitoring Loaded with Clopidogrel 600 mg Continue dual-antiplatelet therapy for at least 6 months Titrate up antihypertensives Continue statin, ASCVD risk factor modification Consult cardiac Rehab Hemodynamics Rest Ao: 177/56/109 Final Ao: 148/52/89 LV: 169/28 Recommendations PCI without planned CABG Specimens None Radiation Exposure (mGy) 1887 Contrast (mls) 100 Fluids (cc crystalloids) 66 Drains None Anesthesia Moderate Procedural Complication(s) None Disposition PCU ACC Data Cardiac Status Clinical evaluation leading to the procedure CAD Presntation: Unstable angina, Stable angina Anginal Classification: CCS IV Heart Failure: No, NYHA Class: CCS I Cardiogenic Shock w/in 24Hrs: No Cardiac Arrest w/in 24Hrs: No Imaging studies past 6 months: Yes Stress studies past 6 months: Yes Stress Testing w/SPECT MPI: Yes - Negative Closure Device Percutaneous Entry Location: Radial Closure Device: Radial Band Recommendations: PCI without planned CABG PCI Indication: Unstable Angina, Angina despite med therapy Lesion Segment Name: proximal LAD Culprit Artery: Yes Stenosis Prior to Rx (%): 95 Chronic Total Occlusion: No IVUS: No FFR: No Pre-Procedure JOSEPH Flow: 3 Previously Treated Lesion: No Lesion Complexity: Non-High/Non-C Lesion Length (mm): 15 Thrombus Present: No Bifurcation Lesion: No Guidewire Across Lesion: Yes Guidewire: Stenosis Post-Procedure (%): 0 Post-Procedure JOSEPH Flow: 3 Device(s) Deployed: Yes Intraprocedure Events Significant Dissection: No Perforation: No
[2017-09-20] MEDS ORDERED: SODIUM CHLORIDE 0.9% 1000ML 1,000 ML IV SCH (17:00)
[2017-09-20] MEDS: RANITIDINE HCL 150 MG TAB PO SCH (21:42)
[2017-09-20] MEDS: PRAVASTATIN SOD 20 MG TAB PO SCH (21:42)
[2017-09-21 00:04] VITALS: BP 138/69; PULSE 62; TEMP 36.4; O2SAT 93
[2017-09-21 03:47] VITALS: BP 159/71; PULSE 60; TEMP 37; O2SAT 95
[2017-09-21 07:05] LABS: HEMOGLOBIN 12.3 g/dL (12.0-16.0); MEAN CELL VOLUME 83.5 fL (80-100); MEAN CORPUSCULAR HGB CONC 32.4 g/dl (32-36); MEAN PLATELET VOLUME 10.2 fL (7.4-10.4); PLATELET COUNT 177 K/uL (130-400); RED CELL DISTRIBUTION WIDTH CV 14.3 % (11.5-14.5); RED CELL DISTRIBUTION WIDTH SD 43.8 fL (36.4-46.3); WHITE BLOOD COUNT 7.98 K/uL (4.8-10.8)
[2017-09-21 07:11] VITALS: BP 172/82; PULSE 59; TEMP 36.5; O2SAT 95
[2017-09-21 07:40] LABS: CALCIUM 8.5 mg/dl (8.5-10.1); CREATININE 1.4 mg/dl (0.60-1.20); POTASSIUM 4.2 mmol/L (3.5-5.1)
[2017-09-21] MEDS: CARVEDILOL 6.25 MG TAB PO SCH (08:08)
[2017-09-21] MEDS: FLECAINIDE ACETATE 100 MG TAB PO SCH (08:08)
[2017-09-21] MEDS: CYANOCOBALAMIN 500 MCG TAB (VIT B-12) PO SCH (08:10)
[2017-09-21] MEDS: DILTIAZEM HCL 240 MG CAPCR PO SCH (08:10)
[2017-09-21] MEDS: INSULIN ASPART 100 UNITS/ML 3 ML PEN SC SCH ×2 (08:16→11:56)
[2017-09-21] MEDS: HEPARIN SOD 5000 UNIT/0.5 ML CARP SQ SCH (08:16)
[2017-09-21] MEDS ORDERED: ASPIRIN 81 MG ECTAB PO SCH (09:00)
[2017-09-21] MEDS ORDERED: CLOPIDOGREL BISULFATE 75 MG TAB PO SCH (09:00)
[2017-09-21] MEDS ORDERED: HYDROCHLOROTHIAZIDE 25 MG TAB PO STA (09:24)
--- NOTE | 2017-09-21 09:26 | Cardiology Follow-Up ---
Subjective Date of Service: Sep 21, 2017. Pt evaluation today including: conversation w/ patient, conversation w/ family , physical exam, lab review, review of studies, review of inpatient medication list History of Present Illness This is a 71-year-old woman who has a history of atrial fibrillation going back approximately to 2008 at which time I believe her episodes were paroxysmal ( self terminating) however she was started on amiodarone which was continued for 2-1/2 years and was discontinued in early 2011. To my knowledge other antiarrhythmics were not used first, this was through the [facility]. She then had recurrence of her atrial arrhythmia, only this time it was persistent rather than paroxysmal. Her symptoms started around October 18, 2011 and she was hospitalized for it. she was started on warfarin, which she did not tolerate and was subsequently switched to Pradaxa which I believe was only started around January 18, 2012 (she was not on any anticoagulant for some time in the interim). She was evaluated in [place] after her hospitalization here in October,, they recommended antiarrhythmic therapy with flecainide followed by cardioversion if needed. She preferred to be followed locally and we did start flecainide 50 mg twice a day followed by cardioversion on February. This was successful in restoring sinus rhythm. She was having some fatigue related to her metoprolol with possible bradycardia therefore we discontinue this and digoxin. Instead I started Bystolic to also help with her hypertension. Her blood pressure is not been well-controlled in general and she has been resistant to increasing medications in the past. She had recurrence of her atrial fibrillation and required cardioversion again in mid June 2015. Eliquis was initiated at that time and she has remained on it. Her flecainide dose has also been increased to 100 mg twice a day. She does not have a history of known coronary artery disease, however presented with precordial chest discomfort as well as severe hypertension on September 09, 2017. Evaluation at that time included cardiac enzymes which were slightly elevated (peak 0.084) although the second measurement was slightly higher than the first. Her blood pressure was controlled, she did not have recurrent symptoms and stress testing was performed on September 13, 2017 (this was a pharmacologic Cardiolite study) which was negative for ischemia. She was discharged in hopes of obtaining better blood pressure control with the thought being that this was demand ischemia from severe hypertension. She now presents with recurrent chest discomfort. At 4 AM on the day of admission she awoke with substernal chest discomfort radiating to the left chest and in her back, she presented to the hospital where initial evaluation showed normal cardiac enzymes and no significant ECG changes. The pain was relatively brief, lasting perhaps 30 minutes, but she feels it was much more severe than in the past. She may have had some shortness of breath associated with it. Catheterization on September 20, 2017 showed a significant LAD lesion which was stented. Today she feels well, she has no specific complaints and slept well through the night. She has no chest discomfort and no discomfort in her right wrist (at the site of the catheterization). Social History Smoking Status: Never Smoker History of Alcohol Use: No Review of Systems Respiratory: No cough, No shortness of breath Cardiac: No chest pain, No palpitations Medications Cardiovascular: Item Value Date Time Clopidogrel 75 mg 09/21/17 0900 Bisulfate QAM/PO 09/21/17 0810 (plAVix TAB) Aspirin 81 mg 09/21/17 0900 (Ecotrin Tab) QAM/PO 09/21/17 0811 Diltiazem HCl 240 mg 09/20/17 0900 (Cardizem Cd Cap) DAILY/PO 09/21/17 0810 Carvedilol 6.25 mg 09/19/17 2100 (Coreg Tab) BID/PO 09/21/17 0808 Flecainide Acetate 100 mg 09/19/17 2100 (Tambocor Tab) BID/PO 09/21/17 0808 Pravastatin Sodium 20 mg 09/19/17 2100 (Pravachol Tab) HS/PO 09/20/17 2142 Heparin Sodium 5,000 unit 09/19/17 2100 (Porcine) Q12/SQ 09/21/17 0816 (Heparin Sq 5000 Unit/0.5ml) Objective Vital Signs Past 12 Hours Date Time Temp Pulse Resp B/P (MAP) Pulse Ox O2 Delivery O2 Flow Rate FiO2 09/21/17 08:00 Room Air 09/21/17 07:11 36.5 59 18 172/82 (112) 95 Room Air 09/21/17 04:00 Room Air 09/21/17 03:47 37.0 60 18 159/71 (100) 95 Room Air 09/21/17 00:04 36.4 62 18 138/69 (92) 93 Room Air 09/21/17 00:00 Room Air 09/20/17 21:30 76 17 152/80 (104) 93 Room Air Last Recorded Weight-Kilograms: 85.500 Physical Exam Constitutional: General Apperance: heathly-appearing Level of Distress: NAD Lungs: Respiratory effort: no dyspnea, good air movement Auscultation: breath sounds normal, no wheezing Cardiovascular: Heart Auscultation: RRR, no murmurs, no rubs, no gallops Peripheral Pulses: Bruits: none appreciated Extremities: no edema Her right wrist catheterization site looks good, no ecchymosis and a good pulse. Data Laboratory Results: Last 24 Hours Test 09/20/17 11:20 09/20/17 11:24 09/20/17 15:04 09/20/17 16:35 Bedside Glucose 159 mg/dl 132 mg/dl Troponin I < 0.015 ng/ml Kaolin Activated Coagulation Time 246 SECONDS Test 09/20/17 20:56 09/21/17 06:36 09/21/17 06:42 Bedside Glucose 173 mg/dl 165 mg/dl White Blood Count 7.98 K/uL Red Blood Count 4.55 M/uL Hemoglobin 12.3 g/dL Hematocrit 38.0 % Mean Corpuscular Volume 83.5 fL Mean Corpuscular Hemoglobin 27.0 pg Mean Corpuscular Hemoglobin Concent 32.4 g/dl RDW Standard Deviation 43.8 fL RDW Coefficient of Variation 14.3 % Platelet Count 177 K/uL Mean Platelet Volume 10.2 fL Sodium Level 138 mmol/L Potassium Level 4.2 mmol/L Chloride Level 105 mmol/L Carbon Dioxide Level 27 mmol/L Anion Gap 6.0 mmol/L Blood Urea Nitrogen 24 mg/dl Creatinine 1.40 mg/dl Est Creatinine Clear Calc Drug Dose 36.3 ml/min Estimated GFR () 43.1 Estimated GFR (Non- 37.2 BUN/Creatinine Ratio 17.2 Random Glucose 164 mg/dl Calcium Level 8.5 mg/dl Magnesium Level 2.4 mg/dl EKG: Postintervention electrocardiogram looks good, sinus rhythm and no significant abnormalities Telemetry reviewed: Sinus rhythm, no significant arrhythmia Assessment and Plan 1. Chest pain: Appears to be due to a significant LAD lesion, she has had none since intervention yesterday. She feels well today. 2. Atrial fibrillation: Rhythm has been stable on flecainide and we have not documented atrial fibrillation recently. I would recommend continuing it, holding her anticoagulation during the procedure should not be much risk. 3. Cardiac risk factors: I did discuss risk factor modification with her today , I have in the past but she has been resistant to medication changes. We do need to make sure that her blood pressure, cholesterol and diet are controlled going forward and I advised her to try to lose weight. Her blood pressure remains elevated, she is on pravastatin and she is overweight. I will try to address these as an outpatient, perhaps she would be willing to go up on carvedilol at discharge to help control her blood pressure. She should be able to go home today, she has an appointment next week with me but that is probably not necessary (that was arranged when I last saw her in the office as a routine follow-up), we will arrange follow-up for her intervention. Thank you for allowing me to participate in her care.
[2017-09-21] MEDS ORDERED: VALSARTAN 80 MG TAB PO SCH (09:30)
[2017-09-21 11:20] VITALS: BP 130/74; PULSE 58; TEMP 36.7; O2SAT 94
[2017-09-21] MEDS ORDERED: ASPEC81 PO (11:52)
[2017-09-21] MEDS ORDERED: PLV75 PO (11:52)
--- NOTE | 2017-09-21 12:02 | Discharge Instructions ---
Discharge Instructions Date of Service Sep 21, 2017. Admission Reason for Admission: Unstable Angina Discharge Discharge Diagnosis / Problem: Coronary Artery Disease with Stent Discharge Goals Goal(s): Decrease discomfort, Improve function, Increase independence Activity Recommendations Activity Limitations: as noted below Lifting Limitations: gradually increase as tolerated Exercise/Sports Limitations: gradually increase as tolerated ACTIVITY RECOMMENDATIONS following heart catheterization: Excess manipulation of the RIGHT wrist should be avoided for the next 24-48 hours. * No lifting over 2 pounds (approximately a 1/2 gallon of milk) with the right arm for 24 hours. * No strenuous activities * Keep the site of the procedure clean and dry. * You may shower at this time. However, do not take a tub bath or submerge the puncture site in water for the next 3 days (no cleaning dishes with the right hand, etc). * Do not operate any motorized equipment for 3 days. SPECIAL CARE INSTRUCTIONS: The site may be slightly bruised and sore following your procedure. Should any of the following occur, contact the Dr. who performed your procedure. 1. Redness/inflammation, swelling, chills, or fever, or colored drainage at procedure site within 3-7 days after your procedure. 2. Coldness, discoloration, ongoing numbness, severe pain, or swelling. Expect mild tingling of hand and tenderness at the puncture site for up to three days. If this persists beyond three days, or other symptoms develop, notify the Dr. who performed your procedure. BLEEDING: If the procedure site on your wrist begins to bleed, do not panic 1. Place 1 or 2 fingers firmly just slightly above the insertion site to stop the bleeding. You may be able to feel your pulse as you hold pressure. 2. Lift your finger after 5 minutes to see if the bleeding has stopped. 3. Once the bleeding has stopped, gently wipe the wrist area clean with a bandage. * If the bleeding from your wrist does not stop after 10 minutes, or if there is a large amount of bleeding or spurting, call 911 (do not drive yourself to the hospital). SKIN IRRITATION: * You may experience some redness and/or swelling in the area where radiation was administered. If any skin irritation occurs, please contact your family physician. . Instructions / Follow-Up Instructions / Follow-Up Chest Pain with Stent Placed in LAD Heart Vessel: - You will be taking aspirin 81 mg daily and plavix 75 mg daily for at least 6 months after the stent - this is an antiplatelet medication - Recommend to limit lifting with your right hand for the next 5-7 days. Nothing heavier then a gallon of milk. - You may gradually increase your activity. Taking walks are good. But take your time and rest if feel tired. - The office technician will set up a follow-up appointment in the next couple weeks. Blood Pressure: - Will need to continue to monitor this and try to get this to improve. This will help prevent cardiac issues. Diabetes: - Recommend to continue to follow a low-carb diet and try and keep sugars under good control. This will also help prevent cardiac issues. Current Hospital Diet Patient's current hospital diet: Diabetes Type 2 Diet Discharge Diet Recommended Diet: Diabetes Type 2 Diet Pending Studies Studies pending at discharge: no Laboratory Results Hemoglobin A1c Test 09/20/17 04:44 Range/Units Estimated Average Glucose 177 mg/dl Hemoglobin A1c 7.8 H 4.5-5.6 % Lipid Panel Test 09/10/17 04:15 Range/Units Triglycerides Level 105 0-150 mg/dl Cholesterol Level 148 0-200 mg/dl HDL Cholesterol 42 mg/dl Cholesterol/HDL Ratio 3.5 LDL Cholesterol, Calculated 85 mg/dl Medical Emergencies . Who to Call and When: Medical Emergencies: If at any time you feel your situation is an emergency, please call 911 immediately. . Non-Emergent Contact Non-Emergency issues call your: Primary Care Provider Call Non-Emergent contact if: you have a fever, your pain is concerning you, you have any medication questions . . "Provider Documentation" section prepared by Kimmy Alonso. .
[2017-09-21] MEDS ORDERED: OMEP40CA41 PO (12:18)
[2017-09-21] MEDS ORDERED: NTRGSL4 PO (12:18)
[2017-09-21 13:00] VITALS: BP 130/74; PULSE 58; TEMP 36.7; O2SAT 94
--- NOTE | 2017-09-21 18:12 | Discharge Summary ---
Discharge Summary Date of Service Sep 21, 2017. Discharge Summary Admission Date: Sep 19, 2017 at 17:22 Discharge Date: Sep 21, 2017 Discharge Disposition: Home Principal Diagnosis: Chest Pain with PCI Problems/Secondary Diagnoses: 1. HTN 2. T2DM 3. HLD 4. Paroxysmal Atrial Fibrillation Immunizations: Have You Had Influenza Vaccine: No History of Tetanus Vaccine?: Unknown Tetanus Immunization Date: Sep 17, 2011 History of Pneumococcal: No History of Hepatitis B Vaccine: No Procedures: SINGLE VIEW CHEST FINDINGS: An AP, portable, upright chest radiograph is compared to study dated 09/09/2017. The examination is degraded by portable technique and patient rotation. The heart is enlarged and there is atherosclerotic calcification of the thoracic aorta. The pulmonary vasculature is noncongested. Linear atelectasis is again seen in the lower lobes. The lungs and pleural spaces are otherwise clear. No pneumothorax is seen. The skeletal structures are osteopenic. Degenerative change is noted in the thoracic spine. IMPRESSION: Cardiomegaly with no acute cardiopulmonary abnormality. Consultations: 1. Cardiology Medication Reconciliation New Medications: Nitroglycerin (Nitrostat) 0.4 Mg/1 Tab Subl 0.4 MG PO [id number] PRN for chest pain, #1 BTL 0 Refills max 3 tabs in 15 minutes Omeprazole (Prilosec) 40 Mg Cap 40 MG PO QAM, #30 CAP 5 Refills to prevent stomach ulcers from aspirin/plavix/eliquis Aspirin (Aspirin EC Low Dose) 81 Mg Ectab 81 MG PO QAM for 30 Days, #30 TAB Clopidogrel Bisulfate (Clopidogrel) 75 Mg Tab 75 MG PO QAM for 30 Days, #30 TAB Continued Medications: Apixaban (Eliquis) 5 Mg Tab 5 MG PO BID Carvedilol (Coreg) 6.25 Mg Tab 6.25 MG PO BID, TAB Cyanocobalamin (Vitamin B-12) 500 Mcg Tab 500 MCG PO DAILY Diltiazem HCl Coated Beads (Diltiazem HCl ER) 240 Mg Tab 240 MG PO DAILY, #30 TAB Flecainide (Tambocor) 100 Mg Tab 100 MG PO BID Furosemide (Lasix) 20 Mg Tab 20 MG PO EDEMA Garlic (Garlic) 400 Mg Tab 400 MG PO DAILY Glipizide (Glucotrol) 10 Mg Tab 10 MG PO AMPM Hydrochlorothiazide (Hctz) 12.5 Mg Cap 12.5 MG PO QAM, TAB Metformin Hcl (Glucophage) 500 Mg Tab 500 MG PO BIDM Nutritional Supplements (Grapeseed Extract) 1 Cap Cap 1 CAP PO DAILY Phytonadione (Mephyton) 5 Mg Tab 15 MG PO DAILY, TAB Potassium Chloride (Micro-K Ext Rel) 10 Meq Capcr 10 MEQ PO DAILY, CAP Pravastatin (Pravachol ) 20 Mg Tab 20 MG PO HS Ranitidine Hcl (Zantac) 150 Mg Tab 150 MG PO HS Sitagliptin (Januvia) 50 Mg Tab 50 MG PO DAILY Valsartan (Diovan) 320 Mg Tab 160 MG PO BID, TAB [Menatetreone] () 15 MG TAB 3 TABS PO DAILY ULTRA K2 (MENATETREONE 15 MG) (VITAMIN K) Discharge Exam Review of Systems: Constitutional: No fever, No chills ENT: No nasal symptoms, No sore throat Respiratory: No cough, No shortness of breath Cardiovascular: No chest pain Abdomen: No pain, No nausea, No vomiting, No diarrhea, No constipation Musculoskeletal: No swelling, No calf pain Genitourinary - Female: No dysuria Neurologic: No numbness/tingling Hematologic / Lymphatic: No abnormal bleeding/bruising Integumentary: No rash Physical Exam: General Appearance: WD/WN, no apparent distress Eyes: sclerae normal ENT: hearing grossly normal Neck: supple, no JVD, trachea midline Respiratory/Chest: lungs clear, normal breath sounds, no respiratory distress, no accessory muscle use Cardiovascular: regular rate, rhythm, no gallop, no murmur Abdomen / GI: normal bowel sounds, non tender, soft Extremities: normal capillary refill, no pedal edema, + pertinent finding ( mild ecchymosis at cath injection site without sensory deficits) Neurologic/Psychiatric: alert Skin: normal color, warm/dry Hospital Course ADMISSION: 72-year-old female with past medical history of hypertension, diabetes mellitus on oral hypoglycemic, dyslipidemia and atrial fibrillation. Patient was recently admitted to the hospital with intermittent chest pain, had a 2D echo and nuclear stress test that were both within normal limits. Except for diastolic dysfunction grade 2. Patient was discharged home and was chest pain free for a while. This morning at 4 AM patient woke up with substernal chest pain referred to the left side of the chest, describes the pain as pressure and rated as 8 or 9 out of 10. It lasted about 30 minutes. Patient came back to the hospital for further evaluation and management. Pain was associated with nausea but no shortness of breath or diaphoresis. No aggravating or relieving factors. Patient said that the pain improved spontaneously and currently she is chest pain-free. 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 HOSPITAL COURSE: Ms. Hooks was admitted for recurrent chest pain and underwent heart catheterization with 95% stenosis in LAD and is S/P PCI in LAD. She will be continued on ASA 81 mg daily and Plavix 75 mg daily for at least 6 months. Cardiology planning to follow-up as outpatient. Goal is to optimize risk factors with BP control, dietary control/DM control, and activity/weight loss. Will continue Diltiazem, Coreg, HCTZ, and Losartan as prescribed. May need to increase dosages pending response. Will prescribed Protonix given dual anti-platelet therapy and will provide Rx for NTG PRN. Total Time Spent: Greater than 30 minutes This includes examination of the patient, discharge planning, medication reconciliation, and communication with other providers. Discharge Instructions Please refer to the electronic Patient Visit Report (Discharge Instructions) for additional information. Additional Copies To Cinthia Rhoades M.D.
[2017-09-22] MEDS ORDERED: HYDROCHLOROTHIAZIDE 25 MG TAB PO SCH (09:00)
== END 2017-09-21 13:44 | disposition home or self-care (01) | DRG 247 ==
LOC: C.EDB 12:41 → C.2T 17:22 → ENRESERV 17:46
PROVIDERS: ADMIT Internal Medicine; ATTEND Internal Medicine
PROC: B211YZZ Fluoroscopy of Multiple Coronary Arteries using Other Contrast (ICD-10-PCS; principal; 2017-09-20 10:15)
PROC: 027034Z Dilation of Coronary Artery, One Artery with Drug-eluting Intraluminal Device, Percutaneous Approach (ICD-10-PCS; principal; 2017-09-20 10:15)
PROC: 4A023N7 Measurement of Cardiac Sampling and Pressure, Left Heart, Percutaneous Approach (ICD-10-PCS; principal; 2017-09-20 10:15)
DX: I25.110 Atherosclerotic heart disease of native coronary artery with unstable angina pectoris (principal); I11.0 Hypertensive heart disease with heart failure; I50.32 Chronic diastolic (congestive) heart failure; I48.0 Paroxysmal atrial fibrillation; E78.5 Hyperlipidemia, unspecified; E11.9 Type 2 diabetes mellitus without complications; G47.33 Obstructive sleep apnea (adult) (pediatric); Z79.01 Long term (current) use of anticoagulants; Z79.899 Other long term (current) drug therapy; Z79.84 Long term (current) use of oral hypoglycemic drugs; Z82.49 Family history of ischemic heart disease and other diseases of the circulatory system; Z88.6 Allergy status to analgesic agent; Z88.8 Allergy status to other drugs, medicaments and biological substances

== ENCOUNTER 2018-10-08 13:52 | Inpatient (IN) ==
[2018-10-08] MEDS ORDERED: SODIUM CHLORIDE 0.9% 1000ML 1,000 ML IV SCH (14:30)
--- NOTE | 2018-10-08 14:37 | Emergency Department Note ---
Entered by Nasir Galaviz acting as a scribe for Alban Baker MD History of Present Illness General Chief complaint: Illness Stated complaint: LACK OF ENERGY,NAUSEA Time Seen by Provider: 10/08/18 14:17 Source: patient and family History of Present Illness Onset (ago): day(s) 6 Location: head (generalized), upper extremity (generalized) and lower extremity (generalized) Pain Consistency: + other (persistent) Quality: + other (weakness) Associated symptoms: + shortness of breath (exacerbated by lying down) and + other (speech difficulty "when singing"); no chest pain The patient is a 73 year old female who presents to the Emergency Room with complaints of persistent generalized weakness for the past six days. The patient reports that her weakness is not localized to one side or extremity. She notes some difficulty with speech, stating that it just doesnt come out right, and her notes that this is noticeable when singing. She reports shortness of breath with lying flat for the past several days. She is unsure if it is worsened with exertion, as she has not been walking. She states that she has not measured her temperature but notes intermittent subjective fevers. She notes leg swelling that is chronic and has gained 3 pounds in the past three months. She notes that she has a prescription for fluid retention medication taken as needed, stating that she took one pill in the past week. She reports a history of atrial fibrillation and states that a cardiac stent was placed one year ago, and she was recently taken off of Plavix. She states she has otherwise been taking her blood thinners and other medications, including metformin for diabetes. The patient denies chest pain, back pain, myalgia, palpitations, recent burning with urination, hematuria, melena, hematochezia, headaches, sore throat, trauma, falls, or recent sick contact. She notes that she was hyperglycemic at a recent PCP visit. Home Medications Home Medications Medication Instructions Recorded Confirmed Type Pravastatin (Pravachol ) 20 mg PO HS #0 10/18/11 History Ranitidine Hcl (ZANTAC) 150 mg PO HS #0 06/23/15 History APIXABAN (ELIQUIS) 5 mg PO BID #0 09/09/17 History Cyanocobalamin (Vitamin B-12) 500 mcg PO DAILY #0 09/09/17 History Diltiazem HCl Coated Beads 240 mg PO DAILY #30 tab 09/09/17 Rx (Diltiazem HCl ER) FUROSEMIDE (LASIX) 20 mg PO EDEMA #0 09/09/17 History Flecainide (Tambocor) 100 mg PO BID #0 09/09/17 History GARLIC 400 mg PO DAILY #0 09/09/17 History GLIPIZIDE (GLUCOTROL) 10 mg PO AMPM #0 09/09/17 History MENATETREONE 3 tabs PO DAILY #0 09/09/17 History METFORMIN HCL (GLUCOPHAGE) 500 mg PO BIDM #0 09/09/17 History NUTRITIONAL SUPPLEMENTS (GRAPESEED 1 cap PO DAILY #0 09/09/17 History EXTRACT) Sitagliptin (Januvia) 50 mg PO DAILY #0 09/09/17 History CARVEDILOL (COREG) 6.25 mg PO BID #0 tab 09/19/17 History HYDROCHLOROTHIAZIDE (HCTZ) 12.5 mg PO QAM #0 tab 09/19/17 History Phytonadione (Mephyton) 15 mg PO DAILY #0 tab 09/19/17 History Potassium Chloride (Micro-K Ext 10 meq PO DAILY #0 cap 09/19/17 History Rel) VALSARTAN (DIOVAN) 160 mg PO BID #0 tab 09/19/17 History Aspirin (Aspirin EC Low Dose) 81 mg PO QAM 30 Days #30 tab 09/21/17 Rx Clopidogrel Bisulfate (Clopidogrel) 75 mg PO QAM 30 Days #30 tab 09/21/17 Rx Nitroglycerin (Nitrostat) 0.4 mg PO [id number] PRN #1 btl 09/21/17 Rx OMEPRAZOLE (PRILOSEC) 40 mg PO QAM #30 cap 09/21/17 Rx Allergies Allergy/AdvReac Type Severity Reaction Status Date / Time acetaminophen Allergy Unknown . Verified 09/19/17 13:12 propoxyphene AdvReac Unknown Nausea Verified 10/08/18 21:46 UNKNOWN ANITBIOTICS Allergy Unknown . Uncoded 10/18/11 11:34 Past Med/Surg History Medical History Hypertension (Acute) Diabetes Atrial fibrillation with RVR Surgical History History of heart artery stent History of section (Resolved) Family History Other Diabetes Heart disease Hypertension Social History Preferred Language: Filipino Communication Ability: Effective Flat Polisher Required: No Beliefs That Will Affect Care: Caodaism Current Living Situation: Spouse Other Information That Helps Us Care for You: No Feels Safe at Home: Yes Safety Concerns: Feels Safe At This Time Smoking Status: Never smoker Hx Alcohol Use: No Hx Substance Use: No Review of Systems See HPI for pertinent positives & negatives. and A total of 10 systems reviewed and were otherwise negative Physical Exam Vital Signs Vital Signs - 24 hr 10/08/18 13:53 10/08/18 15:04 10/08/18 15:06 Temperature 36.4 C L Temperature Source Oral Sepsis Recent Fever Within 48 Hours No Sepsis New/Unexplained Change in Mental Status No Sepsis Action Taken by Nursing No Action Required Pulse Rate 62 52 L 53 L Pulse Rate [Finger] 55 L Pulse Rate from SpO2 Sensor 52 L 53 L Pulse Rhythm [Finger] Pulse Strength [Finger] Respiratory Rate 17 24 25 H Respiratory Effort / Characteristics Non-Labored Respiratory Depth Normal Respiratory Pattern Regular Blood Pressure 219/81 H 192/137 H Blood Pressure [Right Arm] 192/137 H Blood Pressure Mean 127 155 Blood Pressure Mean [Right Arm] 155 Blood Pressure Position Sitting Blood Pressure Position [Right Arm] Pulse Oximetry 97 94 92 Oxygen Delivery Method Room Air Room Air 10/08/18 15:10 10/08/18 15:20 10/08/18 15:30 Temperature Temperature Source Sepsis Recent Fever Within 48 Hours Sepsis New/Unexplained Change in Mental Status Sepsis Action Taken by Nursing Pulse Rate 53 L 52 L 54 L Pulse Rate [Finger] Pulse Rate from SpO2 Sensor 53 L 51 L 54 L Pulse Rhythm [Finger] Pulse Strength [Finger] Respiratory Rate 18 19 18 Respiratory Effort / Characteristics Respiratory Depth Respiratory Pattern Blood Pressure Blood Pressure [Right Arm] Blood Pressure Mean Blood Pressure Mean [Right Arm] Blood Pressure Position Blood Pressure Position [Right Arm] Pulse Oximetry 92 93 95 Oxygen Delivery Method 10/08/18 15:31 10/08/18 15:40 10/08/18 15:50 Temperature Temperature Source Sepsis Recent Fever Within 48 Hours Sepsis New/Unexplained Change in Mental Status Sepsis Action Taken by Nursing Pulse Rate 52 L 55 L 62 Pulse Rate [Finger] Pulse Rate from SpO2 Sensor 52 L 54 L Pulse Rhythm [Finger] Pulse Strength [Finger] Respiratory Rate 20 22 Respiratory Effort / Characteristics Respiratory Depth Respiratory Pattern Blood Pressure 231/89 H Blood Pressure [Right Arm] Blood Pressure Mean 136 Blood Pressure Mean [Right Arm] Blood Pressure Position Blood Pressure Position [Right Arm] Pulse Oximetry 94 93 Oxygen Delivery Method 10/08/18 16:00 10/08/18 16:10 10/08/18 16:16 Temperature Temperature Source Sepsis Recent Fever Within 48 Hours Sepsis New/Unexplained Change in Mental Status Sepsis Action Taken by Nursing Pulse Rate 53 L 52 L Pulse Rate [Finger] 56 L Pulse Rate from SpO2 Sensor Pulse Rhythm [Finger] Pulse Strength [Finger] Respiratory Rate 20 28 H 24 Respiratory Effort / Characteristics Respiratory Depth Respiratory Pattern Blood Pressure Blood Pressure [Right Arm] 241/88 H Blood Pressure Mean Blood Pressure Mean [Right Arm] 139 Blood Pressure Position Blood Pressure Position [Right Arm] Pulse Oximetry 95 Oxygen Delivery Method Room Air 10/08/18 16:18 10/08/18 17:17 10/08/18 17:18 Temperature Temperature Source Sepsis Recent Fever Within 48 Hours Sepsis New/Unexplained Change in Mental Status Sepsis Action Taken by Nursing Pulse Rate Pulse Rate [Finger] Pulse Rate from SpO2 Sensor 59 L 56 L Pulse Rhythm [Finger] Pulse Strength [Finger] Respiratory Rate Respiratory Effort / Characteristics Respiratory Depth Respiratory Pattern Blood Pressure 241/88 H 259/86 H Blood Pressure [Right Arm] Blood Pressure Mean 139 143 Blood Pressure Mean [Right Arm] Blood Pressure Position Blood Pressure Position [Right Arm] Pulse Oximetry 92 94 Oxygen Delivery Method 10/08/18 17:20 10/08/18 17:30 10/08/18 17:31 Temperature Temperature Source Sepsis Recent Fever Within 48 Hours Sepsis New/Unexplained Change in Mental Status Sepsis Action Taken by Nursing Pulse Rate Pulse Rate [Finger] Pulse Rate from SpO2 Sensor 54 L 55 L 56 L Pulse Rhythm [Finger] Pulse Strength [Finger] Respiratory Rate Respiratory Effort / Characteristics Respiratory Depth Respiratory Pattern Blood Pressure 235/90 H Blood Pressure [Right Arm] Blood Pressure Mean 138 Blood Pressure Mean [Right Arm] Blood Pressure Position Blood Pressure Position [Right Arm] Pulse Oximetry 94 92 94 Oxygen Delivery Method 10/08/18 17:32 10/08/18 17:33 10/08/18 17:40 Temperature Temperature Source Sepsis Recent Fever Within 48 Hours Sepsis New/Unexplained Change in Mental Status Sepsis Action Taken by Nursing Pulse Rate Pulse Rate [Finger] 59 L Pulse Rate from SpO2 Sensor 57 L 55 L Pulse Rhythm [Finger] Pulse Strength [Finger] Respiratory Rate 20 Respiratory Effort / Characteristics Respiratory Depth Respiratory Pattern Blood Pressure 215/104 H Blood Pressure [Right Arm] 215/104 H Blood Pressure Mean 141 Blood Pressure Mean [Right Arm] 141 Blood Pressure Position Blood Pressure Position [Right Arm] Pulse Oximetry 96 96 94 Oxygen Delivery Method Room Air 10/08/18 17:50 10/08/18 18:00 10/08/18 18:01 Temperature Temperature Source Sepsis Recent Fever Within 48 Hours Sepsis New/Unexplained Change in Mental Status Sepsis Action Taken by Nursing Pulse Rate Pulse Rate [Finger] Pulse Rate from SpO2 Sensor 54 L 57 L 56 L Pulse Rhythm [Finger] Pulse Strength [Finger] Respiratory Rate Respiratory Effort / Characteristics Respiratory Depth Respiratory Pattern Blood Pressure 209/84 H Blood Pressure [Right Arm] Blood Pressure Mean 125 Blood Pressure Mean [Right Arm] Blood Pressure Position Blood Pressure Position [Right Arm] Pulse Oximetry 92 90 91 Oxygen Delivery Method 10/08/18 18:10 10/08/18 18:20 10/08/18 18:37 Temperature Temperature Source Sepsis Recent Fever Within 48 Hours Sepsis New/Unexplained Change in Mental Status Sepsis Action Taken by Nursing Pulse Rate Pulse Rate [Finger] Pulse Rate from SpO2 Sensor 54 L 57 L 54 L Pulse Rhythm [Finger] Pulse Strength [Finger] Respiratory Rate Respiratory Effort / Characteristics Respiratory Depth Respiratory Pattern Blood Pressure Blood Pressure [Right Arm] Blood Pressure Mean Blood Pressure Mean [Right Arm] Blood Pressure Position Blood Pressure Position [Right Arm] Pulse Oximetry 92 95 97 Oxygen Delivery Method 10/08/18 19:00 10/08/18 19:01 10/08/18 19:33 Temperature 36.4 C L Temperature Source Oral Sepsis Recent Fever Within 48 Hours Sepsis New/Unexplained Change in Mental Status Sepsis Action Taken by Nursing Pulse Rate 56 L 55 L 57 L Pulse Rate [Finger] 57 L Pulse Rate from SpO2 Sensor 58 L 55 L Pulse Rhythm [Finger] Regular Pulse Strength [Finger] Normal Respiratory Rate 18 23 18 Respiratory Effort / Characteristics Non-Labored Spontaneous Normal for Patient Respiratory Depth Normal Respiratory Pattern Regular Blood Pressure 219/76 H Blood Pressure [Right Arm] 208/82 H Blood Pressure Mean 123 Blood Pressure Mean [Right Arm] 124 Blood Pressure Position Blood Pressure Position [Right Arm] Lying Pulse Oximetry 94 92 97 Oxygen Delivery Method Room Air 10/08/18 20:27 Temperature 36.7 C Temperature Source Oral Sepsis Recent Fever Within 48 Hours Sepsis New/Unexplained Change in Mental Status Sepsis Action Taken by Nursing Pulse Rate Pulse Rate [Finger] 60 Pulse Rate from SpO2 Sensor Pulse Rhythm [Finger] Pulse Strength [Finger] Respiratory Rate 19 Respiratory Effort / Characteristics Respiratory Depth Normal Respiratory Pattern Blood Pressure Blood Pressure [Right Arm] Blood Pressure Mean Blood Pressure Mean [Right Arm] Blood Pressure Position Blood Pressure Position [Right Arm] Lying Pulse Oximetry 91 Oxygen Delivery Method Room Air General: Non-ill appearing older female in no acute distress. HEENT: Normal cephalic atraumatic. Pupils are equal round and reactive to light. Extraocular movements are intact. Oropharynx is pink with moist mucous membranes. No swelling of the mouth lips or tongue. Neck: Supple with a midline trachea. No meningeal signs or stiffness, no JVD or bruits. No stridor. Chest: Clear to auscultation bilaterally. No wheezes or rhonchi. No increased work of breathing. Heart: regular rate and rhythm. Abdomen: Soft nontender, nondistended without rebound guarding or rigidity. Extremities: No cyanosis clubbing or edema. No calf tenderness or assymetry. Spine/Back: Non-tender to palpation. No CVA tenderness. Skin: Good turgor without rashes. Neurologic exam: Cranial nerves two through 12 are intact. Motor and sensation are intact and symmetrical throughout. Finger to nose intact. No tremor. Course 1420: The patient was evaluated in room A4A, and a complete history and physical examination were performed. 1539: I updated the patient on current results. 1713: I checked on the patient, who has left for her MRI. 1733: The patient states that her systolic blood pressure is typically in the 190s at home. 1758: I consulted Dr. Monaco [facility] Hospitalist. The patient will be reevaluated for hospitalization. Consultations Consultation #1: I consulted Dr. Monaco [facility] Hospitalist. The patient will be reevaluated for hospitalization. Time: 17:58 Administered Medications Carvedilol (Coreg) 12.5 mg PO BID PEDRO PABLO Stop: 11/07/18 20:59 Last Admin: 10/08/18 22:29 Dose: 12.5 mg Documented by: [id number] Gadobutrol (Gadavist 65ml) 8.5 ml IV ONCE PRN PRN Reason: Interaction Checking Stop: 10/12/18 16:52 Last Admin: 10/08/18 16:53 Dose: 8.5 ml Documented by: [id number] Discontinued Medications Sodium Chloride (Nss 1000ml) 1,000 mls @ 999 mls/hr IV .Q1H1M PEDRO PABLO Stop: 10/08/18 15:30 Last Infusion: 10/08/18 16:15 Dose: 0 mls/hr Documented by: [id number] Admin: 10/08/18 15:14 Dose: 999 mls/hr Documented by: [id number] Medical Decision Making Differential Diagnosis Differential diagnosis: anemia, cardiac disease, neurological disease, electrolyte or metabolic abnormalities, UTI Medical Records Attestation: I reviewed the patient's medical records. Home Medications Current Medication List: was personally reviewed by me Laboratory Data Attestation: I reviewed the patient's lab results. Result diagrams: 10/08/18 14:45 10/08/18 14:45 Lab Results 10/08/18 10/08/18 10/08/18 Range/Units 14:45 14:45 14:45 WBC 8.13 (4.8-10.8) K/uL RBC 4.64 (4.2-5.4) M/uL Hgb 12.5 (12.0-16.0) g/dL Hct 38.3 (37-47) % MCV 82.5 (80-100) fL MCH 26.9 (25-34) pg MCHC 32.6 (32-36) g/dL RDW Std Deviation 46.0 (36.4-46.3) fL RDW Coeff of Nathaly 15.2 H (11.5-14.5) % Plt Count 208 (130-400) K/uL MPV 9.8 (7.4-10.4) fL Immature Gran % (Auto) 0.2 % Neut % (Auto) 70.1 % Lymph % (Auto) 15.7 % [place] % (Auto) 10.5 % Eos % (Auto) 2.5 % Baso % (Auto) 1.0 % Immature Gran # (Auto) 0.02 (0.00-0.02) K/uL Neut # (Auto) 5.70 (1.4-6.5) K/uL Lymph # (Auto) 1.28 (1.2-3.4) K/uL [place] # (Auto) 0.85 H (0.11-0.59) K/uL Eos # (Auto) 0.20 (0-0.5) K/uL Baso # (Auto) 0.08 (0-0.2) K/uL PT 10.7 (9.0-12.0) Seconds INR 1.0 (0.9-1.1) Sodium 143 (136-145) mmol/L Potassium 4.1 (3.5-5.1) mmol/L Chloride 108 H (98-107) mmol/L Carbon Dioxide 27 (21-32) mmol/L Anion Gap 8.0 (3-11) BUN 21 H (7-18) mg/dl Creatinine 1.23 H (0.6-1.2) mg/dl Est Cr Clr Drug Dosing 42.5 ml/min Est GFR ( Amer) 50.0 Est GFR (Non-Af Amer) 43.2 BUN/Creatinine Ratio 16.7 (10-20) Glucose 141 H (70-99) mg/dl POC Glucose (70-99) Calcium 9.2 (8.5-10.1) mg/dl Total Bilirubin 0.3 (0.2-1) mg/dl AST 5 L (15-37) U/L ALT 17 (12-78) U/L Alkaline Phosphatase 77 (45-117) U/L Troponin I < 0.015 (0-0.045) ng/ml NT-Pro-B Natriuret Pep 403 (0-900) pg/ml Total Protein 7.0 (6.4-8.2) gm/dl Albumin 3.6 (3.4-5.0) gm/dl Globulin 3.4 (2.5-4.0) gm/dl Albumin/Globulin Ratio 1.1 (0.9-2) TSH 1.080 (0.300-4.500) uIu/ml Urine Color Urine Appearance (Clear) Urine pH (4.5-7.5) Ur Specific [place] (1.000-1.030) Urine Protein (Negative) Urine Glucose (UA) (Negative) Urine Ketones (Negative) Urine Blood (Negative) Urine Nitrite (Negative) Urine Bilirubin (Negative) Urine Urobilinogen (Negative) Ur Leukocyte Esterase (Negative) Lyme Disease IgG Ab (Negative) Lyme Disease IgM Ab (Negative) 10/08/18 10/08/18 10/08/18 Range/Units 14:45 15:57 20:50 WBC (4.8-10.8) K/uL RBC (4.2-5.4) M/uL Hgb (12.0-16.0) g/dL Hct (37-47) % MCV (80-100) fL MCH (25-34) pg MCHC (32-36) g/dL RDW Std Deviation (36.4-46.3) fL RDW Coeff of Nathaly (11.5-14.5) % Plt Count (130-400) K/uL MPV (7.4-10.4) fL Immature Gran % (Auto) % Neut % (Auto) % Lymph % (Auto) % [place] % (Auto) % Eos % (Auto) % Baso % (Auto) % Immature Gran # (Auto) (0.00-0.02) K/uL Neut # (Auto) (1.4-6.5) K/uL Lymph # (Auto) (1.2-3.4) K/uL [place] # (Auto) (0.11-0.59) K/uL Eos # (Auto) (0-0.5) K/uL Baso # (Auto) (0-0.2) K/uL PT (9.0-12.0) Seconds INR (0.9-1.1) Sodium (136-145) mmol/L Potassium (3.5-5.1) mmol/L Chloride (98-107) mmol/L Carbon Dioxide (21-32) mmol/L Anion Gap (3-11) BUN (7-18) mg/dl Creatinine (0.6-1.2) mg/dl Est Cr Clr Drug Dosing ml/min Est GFR ( Amer) Est GFR (Non-Af Amer) BUN/Creatinine Ratio (10-20) Glucose (70-99) mg/dl POC Glucose 99 (70-99) Calcium (8.5-10.1) mg/dl Total Bilirubin (0.2-1) mg/dl AST (15-37) U/L ALT (12-78) U/L Alkaline Phosphatase (45-117) U/L Troponin I (0-0.045) ng/ml NT-Pro-B Natriuret Pep (0-900) pg/ml Total Protein (6.4-8.2) gm/dl Albumin (3.4-5.0) gm/dl Globulin (2.5-4.0) gm/dl Albumin/Globulin Ratio (0.9-2) TSH (0.300-4.500) uIu/ml Urine Color Yellow Urine Appearance Clear (Clear) Urine pH 6.0 (4.5-7.5) Ur Specific [place] 1.025 (1.000-1.030) Urine Protein Negative (Negative) Urine Glucose (UA) Negative (Negative) Urine Ketones Trace H (Negative) Urine Blood Negative (Negative) Urine Nitrite Negative (Negative) Urine Bilirubin Negative (Negative) Urine Urobilinogen Negative (Negative) Ur Leukocyte Esterase Negative (Negative) Lyme Disease IgG Ab Negative (Negative) Lyme Disease IgM Ab Equivocal H (Negative) Imaging Data Radiologist's Impression: Radiology results as stated below per my review and the radiologist's interpretation: MRI OF THE BRAIN WITHOUT AND WITH IV CONTRAST CLINICAL HISTORY: weakness, Possible mariana lesion on ct COMPARISON STUDY: Head CT performed earlier today. TECHNIQUE: Utilizing a 1.5 Pamela magnet and dedicated coil, multiplanar, multiecho imaging of the brain was performed pre and postcontrast administr ation. IV administration of 8.5 mL of Gadavist contrast was uneventful. FINDINGS: Note is made of a 2.1 x 1.3 cm focus of restricted diffusion within the right aspect of the mariana which corresponds to the finding on head CT. This reflects a acute to subacute infarct. Note is made of a 6 mm nodular enhancing focus along the right into aspect of the falx shown on coronal T1 postcontrast image of . The ventricular system is normal. The basilar cisterns are patent. There are no extra-axial collections. Flow-voids for the major intracranial vessels are present. White matter T2 hyperintense foci reflect small vessel disease. Calvarial signal is maintained. There is mild sinus mucosal thickening. IMPRESSION: 1. 2.1 x 1.3 cm focus of restricted diffusion within the right aspect of mariana wh ich reflects an acute to subacute infarct and corresponds to the finding on head CT. No hemorrhage. No significant mass effect. 2. 6 mm nodular enhancing focus along the right aspect of the falx which may reflect a tiny meningioma. Electronically signed by: Mendez Ruiz M.D. 10/08/2018 5:22 PM XR chest 1V portable CLINICAL HISTORY: weakness COMPARISON STUDY: Chest radiograph September 19, 2017. FINDINGS: Patient is mildly rotated. There is no pneumothorax or pleural effusion. Linear bibasilar opacities favor atelectasis. There is no consolidation to suggest pneumonia. Moderate cardiomegaly is unchanged. There is no evidence for pulmonary edema. IMPRESSION: 1. No acute cardiopulmonary findings. 2. Linear bibasilar opacities suggestive of atelectasis. Electronically signed by: Mendez Ruiz M.D. 10/08/2018 3:[address] head/brain wo con CLINICAL HISTORY: 73 years-old Female with weakness. Acute weakness TECHNIQUE: Multiple axial CT images of the head were obtained without contrast. A dose lowering technique was utilized adhering to the principles of ALARA. CT DOSE: 537.48 mGy.cm COMPARISON: None. FINDINGS: No acute intracranial hemorrhage, midline shift, intracranial mass, hydrocephalus, territorial ischemia or abnormal extra-axial collection. Ill- defined hypodensities about the white matter are suggestive of chronic microvascular ischemic changes. Multifocal hypodensity about the periventricular left frontal lobe is suggestive of encephalomalacia from remote infarct. Carotid calcifications are noted at the level of the skull base. 1.0 x 2.0 cm hypodensity of the right central mariana, image 8 series 2 with ill-defined margins. The calvarium is intact. The paranasal sinuses, mastoid air cells, and middle ear cavities are clear. IMPRESSION: 1. Ill-defined 1.1 x 2.0 cm hypodensity of the right central mariana suggests age-indeterminate infarction. Correlate clinically. 2. No acute intracranial hemorrhage, midline shift or territorial infarct. 3. Background mild chronic microvascular ischemic changes. The above report was generated using voice recognition software. It may contain grammatical, syntax or spelling errors. Electronically signed by: Khari Ramires M.D. 10/08/2018 3:05 PM ECG Data Attestation: I personally reviewed and interpreted this ECG as follows: Indication: weakness Rate (beats per minute): 54 Rhythm: sinus bradycardia Findings: + Q waves (old inferior); no ST depression and no ST elevation Comparison ECG Date: from (09/20/17) Change: no significant change Blood Pressure Blood Pressure Findings: Elevated blood pressure Blood Pressure Disposition: further management by hospitalist SANDRINE Narrative This patient comes in complaining of generalized weakness and just not feeling well. She has a nonfocal neurologic exam. she has no other specific symptoms. She does have a cardiac history. She has had no fever. I did do an extensive workup including multiple blood testing EKG chest x-ray and head CT. She says that it feels like her voice is different when she sings only. This is been going on for several days. I did a urinalysis as well. She was reassessed frequently. She has no focal neurologic deficits. Her CAT scan of her head however shows an abnormality in the mariana potentially. In light of this, I did do an MRI. The MRI does show an subacute mariana infarct. Her symptoms were going on for about a week and are very vague and she is well outside of TPA window or intervention at this point. Her blood pressure has remained very high however it started coming down. It was 210/90 systolic ,she tells me she runs typically 190s at home and in light of this, I do not feel the need to lower it much more precipitously. I have consulted the medicine team for further treatment and evaluation and admission. Impression & Plan Cerebrovascular accident (CVA) of pontine structure, Hypertension, History of heart artery stent, Weakness Discharge Plan Visit Data *Final* Discharge Date/Time: 10/08/18 19:28 Chief Complaint: Illness Stated Complaint: LACK OF ENERGY,NAUSEA ED Provider: Alban Baker Discharge Problem: Cerebrovascular accident (CVA) of pontine structure, Hypertension, History of heart artery stent, Weakness Patient Disposition: Admitted As Inpatient Discharge Instructions Interventions: ED Discharge Assessment Last Done: 10/08/18 19:28 The scribe's documentation has been prepared under my direction and personally reviewed by me in its entirety. I confirm that the note above accurately reflects all work, treatment, procedures, and medical decision making performed by me.
[2018-10-08 14:53] LABS: Basophils # (auto) 0.08 K/uL (0-0.2); Eosinophils % (auto) 2.5 %; Hematocrit (blood only) 38.3 % (37-47); Hemoglobin 12.5 g/dL (12.0-16.0); Immature Granulocytes # (auto) 0.02 K/uL (0.00-0.02); Immature Granulocytes % (auto) 0.2 %; Lymphocytes # (auto) 1.28 K/uL (1.2-3.4); Lymphocytes % (auto) 15.7 %; Mean Corpuscular Hgb Conc 32.6 g/dL (32-36); Mean Corpuscular Volume 82.5 fL (80-100); Mean Platelet Volume 9.8 fL (7.4-10.4); Monocytes # (auto) 0.85 K/uL (0.11-0.59); Monocytes % (auto) 10.5 %; Neutrophils % (auto) 70.1 %; Platelet Count 208 K/uL (130-400); RDW Coefficient of Variation 15.2 % (11.5-14.5); Red Blood Count 4.64 M/uL (4.2-5.4); White Blood Count 8.13 K/uL (4.8-10.8)
[2018-10-08 15:03] LABS: Prothrombin Time 10.7 Seconds (9.0-12.0)
--- NOTE | 2018-10-08 15:07 | CT Scan Report ---
CT head/brain wo con CLINICAL HISTORY: 73 years-old Female with weakness. Acute weakness TECHNIQUE: Multiple axial CT images of the head were obtained without contrast. A dose lowering tech nique was utilized adhering to the principles of ALARA. CT DOSE: 537.48 mGy.cm COMPARISON: None. FINDINGS: No acute intracranial hemorrhage, midline shift, intracranial mass, hydrocephalus, territorial ischem ia or abnormal extra-axial collection. Ill-defined hypodensities about the white matter are suggestiv e of chronic microvascular ischemic changes. Multifocal hypodensity about the periventricular left fr ontal lobe is suggestive of encephalomalacia from remote infarct. Carotid calcifications are noted at the level of the skull base. 1.0 x 2.0 cm hypodensity of the right central mariana, image 8 series 2 wi th ill-defined margins. The calvarium is intact. The paranasal sinuses, mastoid air cells, and middle ear cavities are clear . IMPRESSION: 1. Ill-defined 1.1 x 2.0 cm hypodensity of the right central mariana suggests age-indeterminate infarcti on. Correlate clinically. 2. No acute intracranial hemorrhage, midline shift or territorial infarct. 3. Background mild chronic microvascular ischemic changes. The above report was generated using voice recognition software. It may contain grammatical, syntax o r spelling errors. Electronically signed by: Khari Ramires M.D. 10/08/2018 3:05 PM
[2018-10-08 15:09] LABS: Alanine Aminotransferase 17 U/L (12-78); Albumin Level 3.6 gm/dl (3.4-5.0); Aspartate Aminotransferase 5 U/L (15-37); BUN Creatinine Ratio 16.7 (10-20); Blood Urea Nitrogen 21 mg/dl (7-18); Calcium 9.2 mg/dl (8.5-10.1); Carbon Dioxide 27 mmol/L (21-32); Chloride 108 mmol/L (98-107); Creatinine Clr Calc Pharmacy 42.5 ml/min; Est GFR (Non-African American) 43.2; Glucose 141 mg/dl (70-99); Potassium 4.1 mmol/L (3.5-5.1); Sodium 143 mmol/L (136-145)
--- NOTE | 2018-10-08 15:14 | XRay Report ---
XR chest 1V portable CLINICAL HISTORY: weakness COMPARISON STUDY: Chest radiograph September 19, 2017. FINDINGS: Patient is mildly rotated. There is no pneumothorax or pleural effusion. Linear bibasilar o pacities favor atelectasis. There is no consolidation to suggest pneumonia. Moderate cardiomegaly is unchanged. There is no evidence for pulmonary edema. IMPRESSION: 1. No acute cardiopulmonary findings. 2. Linear bibasilar opacities suggestive of atelectasis. Electronically signed by: Mendez Ruiz M.D. 10/08/2018 3:13 PM
[2018-10-08 15:20] LABS: Albumin Globulin Ratio 1.1 (0.9-2); Alkaline Phosphatase 77 U/L (45-117); Bilirubin,Total 0.3 mg/dl (0.2-1); Globulin 3.4 gm/dl (2.5-4.0); NT Pro B Type Natriuretic Pept 403 pg/ml (0-900); Troponin I < 0.015 ng/ml (0-0.045)
[2018-10-08 16:14] LABS: Appearance Urine Clear (Clear); Bilirubin Urine Negative (Negative); Blood Urine Negative (Negative); Color Urine Yellow; Glucose Urine UA Negative (Negative); Ketones Urine Trace (Negative); Leukocyte Esterase Urine Negative (Negative); Nitrite Urine Negative (Negative); Protein Urine Negative (Negative); Specific Gravity Urine 1.025 (1.000-1.030); Urobilinogen Urine Negative (Negative)
[2018-10-08] MEDS ORDERED: GADOBUTROL 65ML VIAL IV PRN (16:53)
--- NOTE | 2018-10-08 17:24 | Magnetic Resonance Report ---
MRI OF THE BRAIN WITHOUT AND WITH IV CONTRAST CLINICAL HISTORY: weakness, Possible mariana lesion on ct COMPARISON STUDY: Head CT performed earlier today. TECHNIQUE: Utilizing a 1.5 Pamela magnet and dedicated coil, multiplanar, multiecho imaging of the br ain was performed pre and postcontrast administration. IV administration of 8.5 mL of Gadavist contr ast was uneventful. FINDINGS: Note is made of a 2.1 x 1.3 cm focus of restricted diffusion within the right aspect of the mariana which corresponds to the finding on head CT. This reflects a acute to subacute infarct. Note is made of a 6 mm nodular enhancing focus along the right into aspect of the falx shown on coronal T1 p ostcontrast image of . The ventricular system is normal. The basilar cisterns are patent. There a re no extra-axial collections. Flow-voids for the major intracranial vessels are present. White matte r T2 hyperintense foci reflect small vessel disease. Calvarial signal is maintained. There is mild si nus mucosal thickening. IMPRESSION: 1. 2.1 x 1.3 cm focus of restricted diffusion within the right aspect of mariana which reflects an acute to subacute infarct and corresponds to the finding on head CT. No hemorrhage. No significant mass ef fect. 2. 6 mm nodular enhancing focus along the right aspect of the falx which may reflect a tiny meningiom a. Electronically signed by: Mendez Ruiz M.D. 10/08/2018 5:22 PM
--- NOTE | 2018-10-08 18:39 | History & Physical Report ---
Date of Service October 08, 2018 Assessment & Plan (1) Cerebrovascular accident (CVA) of pontine structure: Noted more clearly on MRI Neuro c/s pending Likely related to BP PT/OT pending Not a tpa candidate ECHO pending Lipid profile pending (2) Hypertension: Is supposed to take twice the dose of carvedilol she is taking, however did not tolerate No meds given in the ED for HTN urgency Will give HS carvedilol dosing in an effort to not decrease BP too quickly and monitor Discussed this plan with pt who was very hesitant to take additional BP medications and she is comfortable with this Metoprolol 2.5mg IV PRN if ongoing issues Med rec was not completed by [facility] and several medications were entered incorrectly including carvedilol dosing and valsartan in place of irbesartan (correct med) (3) Weakness: Likely related to above issues Monitor PT/OT CBC, PRP WNL UA and CXR neg for infection Lyme pending Trop neg BNP WNL TSH WNL (4) Diabetes: SSI PRN Was to d/c PO meds and start trulicity as outpt, however this has been on hold given her recent fatigue issues A1c pending (5) Atrial fibrillation with RVR: continue home meds Eliquis (6) CAD (coronary artery disease): continue home meds Aspirin 81mg Plavix recently d/c'd (7) GERD (gastroesophageal reflux disease): continue home meds (8) DVT prophylaxis: SCDs History of Present Illness Primary Care Provider: Cinthia Rhoades MD 73 y/o F c/o weakness. Pt states that she has been unable to complete her usual daily activities for about 1 week and this has worsened during this time. She states she is sleeping far more than her usual. She thought she might have the flu so she came to the ED. She states that she is generally a very active person but has had worsening fatigue with any exertion. She has even gotten SOB if she continues to try to complete her activities without rest. No chest pain. This is unusual for her. Her is present and agrees. She has been eating without issue. She did note mild nausea earlier in the week, but this resolved. She feels her SOB is worse when lying flat. She takes lasix PRN for LE swelling and she did take that once in the last week, but felt no better. Pt denies fever, abd pain, v/c/d, LE pain. She had no other flu-like sx, myalgias, cough, congestion, etc. She has been urinating without issue. Pt states she was to d/c her PO DM meds and start trulicity, however this was put on hold as she was not feeling well. Pt states plavix was recently stopped as well. Pt states she is supposed to take carvedilol 25mg BID, however when it was increased from 12.5mg BID to 25mg BID, she felt "sick" and so she went back to the 12.5mg BID dosing. She saw her PCP last week and states her BP was 170 systolic in the office. She states she generally "runs high", around 160s. She noted she was 190 systolic this AM. She did take her AMs meds. 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 She and her feel that it is at its baseline droop. She states that the area is generally numb, but it might have been a bit more numb this week. Denies confusion or issues with using her UE/LE. She feels her balance is worse over the last week. She notes that she could not sing as well this AM when she was singing her daily devotionals. Allergies Allergy/AdvReac Type Severity Reaction Status Date / Time acetaminophen Allergy Unknown . Verified 09/19/17 13:12 propoxyphene Allergy Unknown Nausea Verified 09/19/17 13:12 UNKNOWN ANITBIOTICS Allergy Unknown . Uncoded 10/18/11 11:34 Home Medications Home Medications Medication Instructions Recorded Confirmed Type Pravastatin (Pravachol ) 20 mg PO HS #0 10/18/11 History Ranitidine Hcl (ZANTAC) 150 mg PO HS #0 06/23/15 History APIXABAN (ELIQUIS) 5 mg PO BID #0 09/09/17 History Cyanocobalamin (Vitamin B-12) 500 mcg PO DAILY #0 09/09/17 History Diltiazem HCl Coated Beads 240 mg PO DAILY #30 tab 09/09/17 Rx (Diltiazem HCl ER) FUROSEMIDE (LASIX) 20 mg PO EDEMA #0 09/09/17 History Flecainide (Tambocor) 100 mg PO BID #0 09/09/17 History GARLIC 400 mg PO DAILY #0 09/09/17 History GLIPIZIDE (GLUCOTROL) 10 mg PO AMPM #0 09/09/17 History MENATETREONE 3 tabs PO DAILY #0 09/09/17 History METFORMIN HCL (GLUCOPHAGE) 500 mg PO BIDM #0 09/09/17 History NUTRITIONAL SUPPLEMENTS (GRAPESEED 1 cap PO DAILY #0 09/09/17 History EXTRACT) Sitagliptin (Januvia) 50 mg PO DAILY #0 09/09/17 History CARVEDILOL (COREG) 6.25 mg PO BID #0 tab 09/19/17 History HYDROCHLOROTHIAZIDE (HCTZ) 12.5 mg PO QAM #0 tab 09/19/17 History Phytonadione (Mephyton) 15 mg PO DAILY #0 tab 09/19/17 History Potassium Chloride (Micro-K Ext 10 meq PO DAILY #0 cap 09/19/17 History Rel) VALSARTAN (DIOVAN) 160 mg PO BID #0 tab 09/19/17 History Aspirin (Aspirin EC Low Dose) 81 mg PO QAM 30 Days #30 tab 09/21/17 Rx Clopidogrel Bisulfate (Clopidogrel) 75 mg PO QAM 30 Days #30 tab 09/21/17 Rx Nitroglycerin (Nitrostat) 0.4 mg PO [id number] PRN #1 btl 09/21/17 Rx OMEPRAZOLE (PRILOSEC) 40 mg PO QAM #30 cap 09/21/17 Rx Past Med/Surg History Medical History Hypertension (Acute) Diabetes Atrial fibrillation with RVR Surgical History History of heart artery stent History of section (Resolved) Family History Other Diabetes Heart disease Hypertension Social History Preferred Language: Zambian Feels Safe at Home: Yes Smoking Status: Never smoker Hx Alcohol Use: No Hx Substance Use: No Review of Systems Pertinent positives and negatives reviewed in HPI--all others negative Physical Exam Vital Signs (Past 24 Hours): Last Vital Signs Temp 36.4 C L 10/08/18 13:53 Pulse 59 L 10/08/18 17:32 Resp 20 10/08/18 17:32 BP 215/104 H 10/08/18 17:32 Pulse Ox 96 10/08/18 17:32 Constitutional: WD/WN, vitals as above Eyes: normal visual allan by confrontation and + anicteric sclerae Neck: normal visual inspection and trachea midline Respiratory: normal respiratory effort, lungs clear to auscultation Cardiovascular: Rate/Rhythm: regular rate and regular rhythm Gastrointestinal (Abdomen): Inspection/Auscultation: abdomen not distended Percussion/Palpation: abdomen soft; abdomen nontender Musculoskeletal: Head/Neck/Chest: normocephalic and head atraumatic negative for edema, peripheral pulses intact Skin: no rashes, warm and dry Neurologic: CN's II-XI intact bilaterally (with L sided facial droop, able to perform balloon blowing testing) and awake; not confused Speech / Cognition: normal speech Psychiatric: A+Ox3, euthymic affect Results & Data Diagnostic Findings CXR: neg for acute CT head: concerning for possible region of infarct MRI head: subacute to acute stroke noted in the mariana ECG Rhythm: sinus bradycardia Code Status & VTE Plan Code Status DNR/DNI per pt. is present and agrees. VTE Prophylaxis Plan VTE Prophylaxis will be ordered: Yes (1) Hypertension Hypertension type: unspecified Qualified Code(s): I10 - Essential (primary) hypertension
[2018-10-08] MEDS ORDERED: NITROGLYCERIN SL 0.4 MG/TAB TAB SL PRN (20:27)
[2018-10-08] MEDS ORDERED: DEXTROSE 50% 50 ML SYRINGE IV PRN (20:27)
[2018-10-08] MEDS ORDERED: ONDANSETRON INJ 2 MG/ML 2 ML VIAL IV PRN (20:27)
[2018-10-08] MEDS ORDERED: MAGNESIUM HYDROXIDE SUSP 30 ML UDC PO PRN (20:27)
[2018-10-08] MEDS ORDERED: CARBOHYDRATES FOR HYPOGLYCEMIA PO PRN (20:27)
[2018-10-08] MEDS ORDERED: GLUCOSE 10 TABS/TUBE PO PRN (20:27)
[2018-10-08] MEDS ORDERED: GLUCAGON FOR INJ 1 MG VIAL SQ PRN (20:27)
[2018-10-08] MEDS ORDERED: ACETAMINOPHEN 325 MG TAB PO PRN (20:27)
[2018-10-08] MEDS ORDERED: PHARMACIST DISCHARGE MED REC CONSULT PRN (20:27)
[2018-10-08] MEDS ORDERED: GLUCOSE 40% GEL 15 GM TUBE PO PRN (20:27)
[2018-10-08] MEDS ORDERED: PRAVASTATIN SOD 20 MG TAB PO SCH (21:00)
[2018-10-08] MEDS ORDERED: NON-FORMULARY MEDICATION (Carvedilol (Coreg) 12.5 MG) PO SCH (21:00)
[2018-10-08 21:25] LABS: Lyme Ab IgG w/WB Rflx Negative (Negative)
[2018-10-08 21:27] LABS: Lyme Ab IgM w/WB Rflx Equivocal (Negative)
[2018-10-08] MEDS: CARVEDILOL 12.5 MG TAB PO SCH (22:29)
[2018-10-08] MEDS: FLECAINIDE ACETATE 100 MG TABLET PO SCH (23:07)
[2018-10-08] MEDS: APIXABAN 5 MG TABLET PO SCH (23:08)
[2018-10-09 06:28] LABS: BUN Creatinine Ratio 16.9 (10-20); Calcium 8.5 mg/dl (8.5-10.1); Creatinine Clr Calc Pharmacy 48.7 ml/min; Est GFR (African American) 60.6; Est GFR (Non-African American) 52.3
[2018-10-09 08:06] LABS: Estimated Average Glucose 180 mg/dl; Hemoglobin A1C 7.9 % (4.5-5.6)
[2018-10-09] MEDS ORDERED: IRBESARTAN 150 MG TAB PO SCH (09:00)
[2018-10-09] MEDS ORDERED: [UNRECOGNIZED DRUG - OTHER] PO SCH (09:00)
[2018-10-09] MEDS ORDERED: POTASSIUM CHLORIDE 10 MEQ TABCR PO SCH (09:00)
[2018-10-09] MEDS ORDERED: dilTIAZem ER 120 MG CAPCR PO SCH (09:00)
[2018-10-09] MEDS ORDERED: ASPIRIN 81 MG ECTAB PO SCH (09:00)
[2018-10-09] MEDS ORDERED: PHYTONADIONE 5 MG TAB PO SCH (09:00)
[2018-10-09] MEDS ORDERED: CYANOCOBALAMIN 500 MCG TABLET (VITAMIN B-12) PO SCH ×2 (09:00→21:00)
[2018-10-09] MEDS: CARVEDILOL 12.5 MG TAB PO SCH ×2 (09:08→20:59)
[2018-10-09] MEDS: APIXABAN 5 MG TABLET PO SCH ×2 (09:08→20:59)
[2018-10-09] MEDS: hydroCHLOROthiazide 25 MG TAB PO SCH (09:10)
[2018-10-09] MEDS: INSULIN ASPART 100 UNITS/ML 3 ML PEN SC SCH ×4 (09:11→21:00)
--- NOTE | 2018-10-09 10:07 | Neurology Consultation ---
Date of Consultation October 09, 2018 Assessment & Plan (1) Cerebrovascular accident (CVA) of pontine structure: The patient had an acute (rather large) right pontine infarct probably about 1-week-old. This is likely secondary to small vessel ischemic disease from hypertensive cerebral vascular disease. Clinically, she is doing very well with some very mild left geni paresis signs, almost surprising given the size of this pontine infarct. Her MRI shows mild old small vessel ischemic disease only. Risk factors for stroke include hypertension, diabetes, dyslipidemia, and persistent atrial fibrillation (although she has been anticoagulated). The anticoagulation went for Eliquis, aspirin, and Plavix 4 months followed by discontinuing the Plavix on September 28. This stroke happened not too long after this. (2) Atrial fibrillation with RVR: The patient has persistent atrial fibrillation followed by Cardiology on Eliquis. This is stable. (3) Hypertension: She has a longstanding history of hypertension which was somewhat elevated on admission. This puts her at risk for small vessel ischemic disease. (4) Diabetes: Patient has diabetes on multiple medications with glucose optimally controlled. Hemoglobin A1c is elevated at 7.9. Recommendations: 1. Continue Eliquis 2. Since this stroke happened off Plavix, I would consider initiating clopidogrel 75 mg a day. She could be on both aspirin and Plavix for 3 weeks, then stop the aspirin. 3. Control blood pressure as you are doing aiming for a mean arterial pressure of approximately 100. 4. Control glucose as you are doing trying to lower hemoglobin A1c below 7. 5. Continue pravastatin 20 mg daily. Given her lipid parameters do not believe she needs to be on a high-dose statin. 6. Continue increasing activity with physical therapy for strengthening. 7. Awaiting echocardiogram results. 8. Consider carotid ultrasound. I do not believe she needs CT or MR angiography otherwise, as it will likely not change our treatment. Overall, I spent a total of 65 minutes with this case including review of records, review of MRI films, direct evaluation the patient at bedside, and dis cussion of the case with the patient, her spouse who was at bedside today, clinical staff, and Dr. Moreno, including differential diagnosis and treatment options. History of Present Illness Reason for Consultation: 73-year-old, who I was asked to see the request of Dr. Monaco, for neurologic the evaluation regarding stroke Requesting Physician: Dr. Monaco Attending Physician: Rj Moreno History of Present Illness Patient has a history of persistent atrial fibrillation followed by Cardiology. She has been on the Eliquis 81 mg aspirin, and 75 mg clopidogrel the for a year following a cardiac stent. On September 28, the Plavix was discontinued as part of the protocol/routine. Patient has a history of diabetes, dyslipidemia, and hypertension. She has mitral regurgitation. Patient states that about a week ago she noted a generalized sense of fatigue and weakness. She pushed through it doing her normal daily tasks. She denied pain or headaches, numbness or speech problems. Although her speech was not slurred or having word-finding difficulties, the patient's who is present at bedside today, felt that her voice seemed hoarse/different earlier in the week. The weakness was not on any particular side or limbs but all limbs felt equal. She did not have incontinence. Her balance felt a little "off" but nothing specific and she had no falls. She just had a lack of energy. She arrived to the emergency room on October 08 at 1353 with a temperature 36.4, pulse 62 and regular, respiratory rate 17 uncomfortable, blood pressure 219/81, and O2 saturation 97%. Her neurologic examination was unremarkable. She has a little left facial droop at the corner of the mouth which is old. CBC and Chem profile were largely unremarkable although glucose was 141. Fasting lipid profile showed triglycerides of 91, cholesterol 151, LDL 97 TSH was 1.0 and urinalysis was normal. Lyme antibodies are pending. CT scan of the head showed a possible right pontine stroke and mild old ischemia. MRI of the brain showed a rather large right pontine infarct of an acute/subacute nature. The there was mild old chronic scattered ischemic changes only. A tiny 6 mm right fall see meningioma was present. This is incidental. Patient is doing well today and feels a little bit better compared to yesterday. She has no new findings. Allergies Allergy/AdvReac Type Severity Reaction Status Date / Time acetaminophen Allergy Unknown . Verified 09/19/17 13:12 propoxyphene AdvReac Unknown Nausea Verified 10/08/18 21:46 UNKNOWN ANITBIOTICS Allergy Unknown . Uncoded 10/18/11 11:34 Home Medications Home Medications Medication Instructions Recorded Confirmed Type Pravastatin (Pravachol ) 20 mg PO HS #0 10/18/11 History Ranitidine Hcl (ZANTAC) 150 mg PO HS #0 06/23/15 History APIXABAN (ELIQUIS) 5 mg PO BID #0 09/09/17 History Cyanocobalamin (Vitamin B-12) 500 mcg PO DAILY #0 09/09/17 History Diltiazem HCl Coated Beads 240 mg PO DAILY #30 tab 09/09/17 Rx (Diltiazem HCl ER) FUROSEMIDE (LASIX) 20 mg PO EDEMA #0 09/09/17 History Flecainide (Tambocor) 100 mg PO BID #0 09/09/17 History GARLIC 400 mg PO DAILY #0 09/09/17 History GLIPIZIDE (GLUCOTROL) 10 mg PO AMPM #0 09/09/17 History MENATETREONE 3 tabs PO DAILY #0 09/09/17 History METFORMIN HCL (GLUCOPHAGE) 500 mg PO BIDM #0 09/09/17 History NUTRITIONAL SUPPLEMENTS (GRAPESEED 1 cap PO DAILY #0 09/09/17 History EXTRACT) Sitagliptin (Januvia) 50 mg PO DAILY #0 09/09/17 History CARVEDILOL (COREG) 6.25 mg PO BID #0 tab 09/19/17 History HYDROCHLOROTHIAZIDE (HCTZ) 12.5 mg PO QAM #0 tab 09/19/17 History Potassium Chloride (Micro-K Ext 10 meq PO DAILY #0 cap 09/19/17 History Rel) VALSARTAN (DIOVAN) 160 mg PO BID #0 tab 09/19/17 History Aspirin (Aspirin EC Low Dose) 81 mg PO QAM 30 Days #30 tab 09/21/17 Rx Clopidogrel Bisulfate (Clopidogrel) 75 mg PO QAM 30 Days #30 tab 09/21/17 Rx Nitroglycerin (Nitrostat) 0.4 mg PO [id number] PRN #1 btl 09/21/17 Rx OMEPRAZOLE (PRILOSEC) 40 mg PO QAM #30 cap 09/21/17 Rx Patient History Medical History Hypertension (Acute) Diabetes Atrial fibrillation with RVR Surgical History History of heart artery stent (Acute) History of section (Resolved) History of cataract surgery History of tonsillectomy Family History Mother , age 73 of heart issues. Heart disease Father , age 72 of heart issues the Heart disease Hypertension Other Diabetes Social History Preferred Language: Spanish Communication Ability: Effective Make Up Worker Required: No Beliefs That Will Affect Care: Church Current Living Situation: Spouse Other Information That Helps Us Care for You: No Feels Safe at Home: Yes Safety Concerns: Feels Safe At This Time Smoking Status: Never smoker Hx Alcohol Use: No Hx Substance Use: No Review of Systems Constitutional: + fatigue and + weakness; no fever Eyes: no diplopia, no eye pain and no worsening vision Ear, Nose, Mouth, Throat: no ear pain, no tinnitus, no hearing loss and no dysphagia Respiratory: no cough and no dyspnea Cardiovascular: no chest pain, no dyspnea and no palpitations Gastrointestinal: no abdominal pain, no nausea and no vomiting Genitourinary (Female): no dysuria, no urinary frequency and no urinary incontinence Musculoskeletal: no back pain, no neck pain, no radicular pain, no myalgia, no muscle weakness and no muscle atrophy Integumentary: no rash and no lesions Neurologic: + generalized weakness; no gait abnormality, no falls, no localized weakness, no tingling, no numbness, no tremor(s), no abnormal movements, no dizziness, no headache(s), no abnormal speech, no behavioral changes, no confusion and no memory loss Psychiatric: no depression, no abnormal sleep pattern, no anxiety, no difficulty concentrating, no confusion and no hallucinations Endocrine: + fatigue; no flushing Hematologic / Lymphatic: + easy bruising; no easy bleeding Allergy / Immunological: no urticaria Physical Exam Vital Signs (Past 24 Hours): Last Vital Signs Temp 37.0 C 10/09/18 07:00 Pulse 61 10/09/18 07:00 Resp 18 10/09/18 07:00 BP 186/76 H 10/09/18 07:00 Pulse Ox 96 10/09/18 07:00 Physical Exam: The patient is right-handed. The patient is awake, alert, and attentive. Speech is normal without any aphasia or dysarthria. Mentation and thought processes are intact, with full orientation and normal fund of knowledge. Attention and concentration are normal. Mood and affect are normal and appropriate. General appearance and grooming are normal. Short and long-term memory are intact. The discs are sharp with positive venous pulsations bilaterally. There are no exudates, hemorrhages, or blood vessel changes seen. Pupils are 4 mm bilaterally and reactive to light. Extraocular eye muscles are intact without nystagmus. Visual acuity and visual allan seem normal grossly to confrontation. There are no deficits to sensation in the face in all 3 distributions of the fifth cranial nerve bilaterally. Corneal reflexes are positive bilaterally. There is a slight droop at the corner of the mouth on the left (which is apparently old). There is no synkinesis present. Hearing seems intact grossly to voice and finger rub bilaterally. Palate moves well without asymmetry. There is normal sternocleidomastoid and trapezius (shoulder shrug) strength bilaterally. Tongue is midline with good strength bilaterally. Neck has a full range of motion without discomfort. There are no cervical bruits bilaterally. There are no cranial or ocular bruits. Heart is without murmur. There is a regular rhythm and rate. Cervical, thoracic, and lumbar spine are nontender to palpation. Gait is mildly cautious, but otherwise narrow based, with good arm swing, turns, and stance. Balance is normal eyes open. With outstretched arms there is a very slight drift on the left. There are no resting, postural, or action tremors. There is no ataxia with finger to nose testing. There is good facility in the right hand and some slight clumsiness in the left. No other abnormal involuntary movements are noted. Motor strength is 5/5 diffusely in the right arm and leg both proximally and distally. The left arm and leg have 4+/5 strength diffusely both proximally and distally. The limbs have good tone without rigidity or spasticity. There is no atrophy noted in the muscles. Muscle bulk is normal, there is no tenderness to palpation, no myotonia to percussion, and no fasciculations seen. Sensory examination is intact to touch and pin throughout all 4 limbs diffusely. Reflexes are 2/4 in the biceps, triceps, brachioradialis, and quadriceps tendons bilaterally. Achilles tendon reflexes are absent bilaterally. Toes are downgoing with plantar stimulation bilaterally. Peripheral pulses are present and of normal quality distally in all 4 limbs. There is some mild peripheral edema in the feet. Results & Data Diagnostic Findings MRI OF THE BRAIN WITHOUT AND WITH IV CONTRAST CLINICAL HISTORY: weakness, Possible mariana lesion on ct COMPARISON STUDY: Head CT performed earlier today. TECHNIQUE: Utilizing a 1.5 Pamela magnet and dedicated coil, multiplanar, multiecho imaging of the brain was performed pre and postcontrast administration. IV administration of 8.5 mL of Gadavist contrast was uneventful. FINDINGS: Note is made of a 2.1 x 1.3 cm focus of restricted diffusion within the right aspect of the mariana which corresponds to the finding on head CT. This reflects a acute to subacute infarct. Note is made of a 6 mm nodular enhancing focus along the right into aspect of the falx shown on coronal T1 postcontrast image . The ventricular system is normal. The basilar cisterns are patent. There are no extra-axial collections. Flow-voids for the major intracranial vessels are present. White matter T2 hyperintense foci reflect small vessel disease. Calvarial signal is maintained. There is mild sinus mucosal thickening. IMPRESSION: 1. 2.1 x 1.3 cm focus of restricted diffusion within the right aspect of mariana which reflects an acute to subacute infarct and corresponds to the finding on head CT. No hemorrhage. No significant mass effect. 2. 6 mm nodular enhancing focus along the right aspect of the falx which may reflect a tiny meningioma. Electronically signed by: Mendez Ruiz M.D. 10/08/2018 5:22 PM (1) Hypertension Hypertension type: unspecified Qualified Code(s): I10 - Essential (primary) hypertension
[2018-10-09] MEDS: IRBESARTAN 150 MG TAB PO SCH ×2 (10:32→20:57)
[2018-10-09] MEDS: FLECAINIDE ACETATE 100 MG TABLET PO SCH ×2 (10:33→20:58)
[2018-10-09] MEDS ORDERED: POTASSIUM CHLORIDE 10 MEQ TABCR PO STA (11:38)
[2018-10-09] MEDS ORDERED: FUROSEMIDE 20 MG TAB PO ONE (11:45)
[2018-10-09] MEDS ORDERED: CLOPIDOGREL BISULFATE 75 MG TAB PO ONE (11:45)
[2018-10-09] MEDS: POTASSIUM CHLORIDE 10 MEQ TABCR PO SCH (12:36)
[2018-10-09] MEDS: ASPIRIN 81 MG ECTAB PO SCH (12:36)
--- NOTE | 2018-10-09 15:00 | Ultrasound Report ---
US carotid doppler BI CLINICAL HISTORY: 73 years-old Female with right sided stroke. Acute strokelike symptoms COMPARISON: Brain MRI 10/08/2018 TECHNIQUE: Multiple real time sonographic images of the carotid bifurcations were obtained assessing boland scale, color Doppler and spectral wave form appearance FINDINGS: RIGHT CAROTID: The peak systolic velocity within the right ICA is measured at 134 cm/sec. The end d iastolic velocity measured 37 cm/sec. The ICA to CCA ratio measured 2.6 which correlates with a sten osis of 50-69%. Peak systolic velocity within the right common carotid arteries measured at 51 cm/s w ith end-diastolic velocity of 11 cm/s. Moderate mixed plaque formation of the right carotid bulb and proximal right ICA. LEFT CAROTID: The peak systolic velocity within the left ICA measures 83 cm/sec. The end diastolic velocity measured 24 cm/sec. The ICA to CCA ratio measured 1.1 which correlates with a stenosis of 0- 50%. Moderate mixed plaque formation of the left carotid bulb and proximal left ICA. There is normal antegrade vertebral flow bilaterally. IMPRESSION: 1. Mixed plaque formation of the bilateral carotid bulbs and proximal ICAs results in 50-69% stenosi s on the right and less than 50% stenosis on the left. 2. Normal antegrade vertebral flow bilaterally. The above report was generated using voice recognition software. It may contain grammatical, syntax o r spelling errors. Electronically signed by: Khari Ramires M.D. 10/09/2018 2:58 PM
[2018-10-09] MEDS ORDERED: FUROSEMIDE 20 MG in SYRINGE 0 ML IV ONE (17:16)
--- NOTE | 2018-10-09 20:28 | Hospitalist Progress Note ---
Date of Service October 09, 2018 Assessment & Plan (1) Cerebrovascular accident (CVA) of pontine structure: Likely due to small vessel disease. Has been faithful with eliquis thus cardioembolic disease from a.fib unlikely. No thrombus on echo either. Fortunately should make good recovery from this. Needs improved lipids control (LDL 97; needs to be <70) --- increase pravastatin to 40mg daily. Needs improved BP and DM control. Neuro consult appreciated. PT,OT,speech evals. Asa, plavix, eliquis x 1 month. After 1 month STOP aspirin and continue plavix/eliquis. Carotid duplex study noted. NO Rx needed for ICA stenosis at this time other than improved lipids/HTN/DM control. Present on Admission?: Yes (2) Hypertension: Uncontrolled. Split dosing of meds may smooth out her 24-hour control. Continue complex regimen of meds. In light of vascular disease could consider renal artery dopplers. Adjust meds as needed. Bring BP down slowly over next 24 hours in light of subacute stroke. Present on Admission?: Yes (3) Weakness: Likely due to stroke and decompensated CHF. Treat both. No evidence of any infectious process. Present on Admission?: Yes (4) Acute on chronic diastolic CHF (congestive heart failure): Likely due to uncontrolled HTN. Exam and even echo findings all suggest decompensated CHF (IVC dilated on echo today). Lasix BID today. Re-eval tomorrow. Needs better BP control. Present on Admission?: Yes (5) Diabetes: a1c 7.9% improved control needed in light of multiple cardiac/cerebrovascular issues. adjust meds. Present on Admission?: Yes (6) Atrial fibrillation with RVR: history of such. continue home meds including flecainide to maintain NSR. Eliquis for anticoagulation. continue tele. Present on Admission?: No (7) CAD (coronary artery disease): continue home meds titrate statin Aspirin 81mg plavix resumed in setting of subacute stroke continue BB no ischemic symptoms at this time echo w/o wall motion abnormalities troponin negative Present on Admission?: Yes (8) GERD (gastroesophageal reflux disease): continue home meds in light of triple therapy of asa/plavix/eliquis she needs ongoing GI prophy (9) Chronic kidney disease, stage 3a: creatinine stable BMP in am (10) Hyperlipidemia: titrate pravastatin to 40mg daily (11) Carotid artery stenosis: b/l no intervention at this time improved HTN/DM/lipids control repeat study in 1 year (12) DVT prophylaxis: tania hopefully home tomorrow if BPs improved and she is more euvolemic from CHF standpoint /family updated at bedside today Subjective patient anxious to return home. notes minimal left arm/left leg weakness but not interfering with locamotion. she reports orthopnea for about 1 week in the setting of high BPs at home and at MD's office. also w/ HOLLY for same time. no recent rest chest pain or exertional chest pain. only takes lasix prn at home. Constitutional: + weight gain; no fever and no chills Respiratory: no cough Cardiovascular: + edema; no chest pain, no chest pain with activity and no radiating jaw, neck or arm pain Gastrointestinal: + abdominal pain Physical Exam Vital Signs (Past 24 Hours): Last Vital Signs Temp 36.7 C 10/09/18 19:26 Pulse 57 L 10/09/18 19:26 Resp 17 10/09/18 19:26 BP 130/72 10/09/18 19:26 Pulse Ox 91 10/09/18 19:26 Constitutional: well developed, well nourished and + obese; no acute distress and not ill appearing ENMT: external ear and nose normal, oropharynx normal Respiratory: Auscultation: + rales (bases) Cardiovascular: Rate/Rhythm: regular rate and regular rhythm Heart Sounds: normal S1 and normal S2; no murmur Vessels: + JVD (2/[address] way up neck), posterior tibial pulses present and dorsalis pedis pulses present Extremities: + pedal edema (trace b/l) Gastrointestinal (Abdomen): normal bowel sounds, soft, nontender, no hepatosplenomegaly Neurologic: + focal motor deficit minimal pronator drift on left; facial droop - left; 4-5/5 strength LUE/LLE Psychiatric: A+Ox3, euthymic affect Results & Data Laboratory Results Laboratory Results - last 24 hr 10/08/18 10/09/18 10/09/18 14:45 05:37 07:49 Sodium 142 Potassium 4.0 Chloride 109 H Carbon Dioxide 26 Anion Gap 7.0 BUN 18 Creatinine 1.05 Est Cr Clr Drug Dosing 48.7 Est GFR ( Amer) 60.6 Est GFR (Non-Af Amer) 52.3 BUN/Creatinine Ratio 16.9 Glucose 141 H POC Glucose 177 H Estimat Average Glucose 180 Hemoglobin A1c 7.9 H Calcium 8.5 Triglycerides 91 Cholesterol 151 LDL Cholesterol, Calc 97 VLDL Cholesterol, Calc 18 HDL Cholesterol 36 Cholesterol/HDL Ratio 4 10/09/18 10/09/18 10/09/18 11:39 16:47 20:48 Sodium Potassium Chloride Carbon Dioxide Anion Gap BUN Creatinine Est Cr Clr Drug Dosing Est GFR ( Amer) Est GFR (Non-Af Amer) BUN/Creatinine Ratio Glucose POC Glucose 192 H 181 H 175 H Estimat Average Glucose Hemoglobin A1c Calcium Triglycerides Cholesterol LDL Cholesterol, Calc VLDL Cholesterol, Calc HDL Cholesterol Cholesterol/HDL Ratio (1) Hypertension Hypertension type: unspecified Qualified Code(s): I10 - Essential (primary) hypertension (2) Diabetes Diabetes mellitus type: type 2 Diabetes mellitus skilled nursing insulin use: without long term care administrator use Diabetes mellitus complication status: without complication Qualified Code(s): E11.9 - Type 2 diabetes mellitus without complications (3) CAD (coronary artery disease) Coronary Disease-Associated Artery/Lesion type: [place] artery [place] vs. transplanted heart: [place] heart Associated angina: without angina Qualified Code(s): I25.10 - Atherosclerotic heart disease of [place] coronary artery without angina pectoris (4) GERD (gastroesophageal reflux disease) Esophagitis presence: without esophagitis Qualified Code(s): K21.9 - Gastro- esophageal reflux disease without esophagitis (5) Hyperlipidemia Hyperlipidemia type: mixed hyperlipidemia Qualified Code(s): E78.2 - Mixed hyperlipidemia (6) Carotid artery stenosis Laterality: bilateral Qualified Code(s): I65.23 - Occlusion and stenosis of bilateral carotid arteries
[2018-10-09] MEDS ORDERED: PRAVASTATIN SOD 40 MG TAB PO SCH (21:00)
[2018-10-10 06:23] LABS: BUN Creatinine Ratio 17.2 (10-20); Calcium 8.7 mg/dl (8.5-10.1); Creatinine Clr Calc Pharmacy 37.1 ml/min; Est GFR (African American) 43.5; Est GFR (Non-African American) 37.6; Magnesium 2.3 mg/dl (1.8-2.4); Potassium 3.7 mmol/L (3.5-5.1)
[2018-10-10] MEDS: INSULIN ASPART 100 UNITS/ML 3 ML PEN SC SCH ×3 (08:01→16:58)
[2018-10-10] MEDS: IRBESARTAN 150 MG TAB PO SCH (08:02)
[2018-10-10] MEDS: CARVEDILOL 12.5 MG TAB PO SCH (08:03)
[2018-10-10] MEDS: FLECAINIDE ACETATE 100 MG TABLET PO SCH (08:03)
[2018-10-10] MEDS: hydroCHLOROthiazide 25 MG TAB PO SCH (08:03)
[2018-10-10] MEDS: APIXABAN 5 MG TABLET PO SCH (08:04)
[2018-10-10] MEDS ORDERED: dilTIAZem ER 120 MG CAPCR PO SCH (09:00)
[2018-10-10] MEDS ORDERED: hydroCHLOROthiazide 25 MG TAB PO STA (09:06)
--- NOTE | 2018-10-10 11:37 | Neurology Progress Note ---
Date of Service October 10, 2018 Assessment & Plan (1) Cerebrovascular accident (CVA) of pontine structure: The patient had an acute (rather large) right pontine infarct probably about 1-week-old (about 1 week prior to admission). This is likely secondary to small vessel ischemic disease from hypertensive cerebral vascular disease. Clinically, she is doing very well today with no obvious weakness on the left side compared to yesterday. Again, her clinical exam is very surprising given the size of this pontine infarct. Her MRI shows mild old small vessel ischemic disease only. Risk factors for stroke include hypertension, diabetes, dyslipidemia, and persistent atrial fibrillation (although she has been anticoagulated). The anticoagulation went for Eliquis, aspirin, and Plavix for months followed by discontinuing the Plavix on September 28. This stroke happened not too long after this. Carotid ultrasound showed moderate stenosis right greater than left side in the ICAs bilaterally. These are not the vessels responsible for her mid brain stroke . She remains on antiplatelet and anticoagulation medication. (2) Atrial fibrillation with RVR: The patient has persistent atrial fibrillation followed by Cardiology on Eliquis. This is stable. (3) Hypertension: She has a longstanding history of hypertension which was somewhat elevated on admission. This puts her at risk for small vessel ischemic disease. (4) Diabetes: Patient has diabetes on multiple medications with glucose optimally controlled. Hemoglobin A1c is elevated at 7.9. Recommendations: 1. Continue Eliquis 2. Continue aspirin and Plavix for 3 weeks, then stop the aspirin. Then remain on the Plavix 75 milligrams daily along. 3. Control blood pressure as you are doing aiming for a mean arterial pressure of approximately 100. 4. Control glucose as you are doing trying to lower hemoglobin A1c below 7. 5. Continue pravastatin 20 mg daily. Given her lipid parameters do not believe she needs to be on a high-dose statin. 6. Continue increasing activity with physical therapy for strengthening. 7. I see no indication for surgical consultation regarding her bilateral carotid stenosis. Continue antiplatelet and anticoagulation medication and recheck carotid ultrasound in 6 months. Overall, I spent a total of 35 minutes with this case including review of recor ds, direct evaluation the patient at bedside, and discussion of the case with the patient, her spouse who was at bedside today, and Dr. Moreno, including differential diagnosis and treatment options. Subjective Patient feels better today. She feels stronger. She does not have headaches comma pain, speech problems, or confusion. Blood pressure was 170/70. Chem profile was unremarkable although glucose was mildly elevated. Echocardiogram was largely unremarkable. Carotid ultrasound showed 50-69 percent stenosis in the right ICA and less than 50 percent stenosis in the left ICA. Physical Exam Vital Signs (Past 24 Hours): Last Vital Signs Temp 36.8 C 10/10/18 08:00 Pulse 51 L 10/10/18 08:10 Resp 18 10/10/18 08:00 BP 170/70 H 10/10/18 08:12 Pulse Ox 96 10/10/18 08:00 Physical Exam: She is awake and alert. Speech is without aphasia or dysarthria. Mood and affect are normal and appropriate. Thought processes are intact. Extraocular eye muscles are intact without nystagmus. There is no facial droop. Coordination is normal in the arms with no tremors or ataxia. Motor strength is 5/5 in all major muscle groups in arms leg both proximally and distally. (1) Hypertension Hypertension type: unspecified Qualified Code(s): I10 - Essential (primary) hypertension (2) Diabetes Diabetes mellitus type: type 2 Diabetes mellitus longterm insulin use: without longterm use Diabetes mellitus complication status: without complication Qualified Code(s): E11.9 - Type 2 diabetes mellitus without complications
[2018-10-10] MEDS: POTASSIUM CHLORIDE 10 MEQ TABCR PO SCH (13:48)
[2018-10-10] MEDS: ASPIRIN 81 MG ECTAB PO SCH (13:48)
--- NOTE | 2018-10-10 14:18 | Ultrasound Report ---
US duplex renal artery HISTORY: 73 years-old Female uncontrolled HTN;eval SEMAJ acute hypertension with concern for renal art erial stenosis COMPARISON: None available TECHNIQUE: Multiple real-time sonographic images of the bilateral kidney vascular structures were obt ained assessing grayscale appearance, color and spectral flow FINDINGS: The aorta demonstrates peak systolic velocity 108 cm/s with normal plug flow. Right kidney measures 11.7 cm in length. Patent renal vein. Patent arcuate branches. Proximal right r enal artery demonstrates peak systolic velocity 182 cm/s with resistive index of 0.86. 4 mm nonobstru cting calculus of the interpolar right kidney. No hydronephrosis or suspicious mass lesions about the right kidney identified. Left kidney measures 10.9 cm in length. Patent left renal vein. Patent arterial branches. Peak systol ic velocity 138 cm/s about the mid aspect of the left renal artery with resistive index of 0.86. No l eft-sided renal calculi or hydronephrosis identified. IMPRESSION: 1. Elevated peak systolic velocity of the proximal right renal artery is suggestive of renal arterial stenosis. 2. 4 mm nonobstructing calculus of the interpolar right kidney. The above report was generated using voice recognition software. It may contain grammatical, syntax o r spelling errors. Electronically signed by: Khari Ramires M.D. 10/10/2018 2:17 PM
[2018-10-10] MEDS ORDERED: STROKE PATIENT DISCHARGE STA (17:18)
--- NOTE | 2018-10-10 19:10 | Pharmacy Report ---
Pharmacist Stroke Counseling - Date of Service October 10, 2018 - Scope: Pharmacy has been consulted to provide medication discharge counseling for this patient admitted with ischemic stroke as per the Pharmacist Discharge Counseling for Stroke Patients Protocol. - Medications on Discharge: Home Medications Medication Instructions Recorded Confirmed Ranitidine Hcl (ZANTAC) 150 mg PO HS #0 06/23/15 APIXABAN (ELIQUIS) 5 mg PO BID #0 09/09/17 Cyanocobalamin (Vitamin B-12) 500 mcg PO DAILY #0 09/09/17 Flecainide (Tambocor) 100 mg PO BID #0 09/09/17 GARLIC 400 mg PO DAILY #0 09/09/17 GLIPIZIDE (GLUCOTROL) 10 mg PO AMPM #0 09/09/17 MENATETREONE 3 tabs PO DAILY #0 09/09/17 METFORMIN HCL (GLUCOPHAGE) 500 mg PO BIDM #0 09/09/17 NUTRITIONAL SUPPLEMENTS (GRAPESEED 1 cap PO DAILY #0 09/09/17 EXTRACT) Sitagliptin (Januvia) 50 mg PO DAILY #0 09/09/17 Potassium Chloride (Micro-K Ext 10 meq PO DAILY #0 cap 09/19/17 Rel) New Rx's Medication Instructions Recorded Aspirin (Aspirin EC Low Dose) 81 mg PO QAM 30 Days #30 tab 09/21/17 Nitroglycerin (Nitrostat) 0.4 mg PO [id number] PRN #1 btl 09/21/17 OMEPRAZOLE (PRILOSEC) 40 mg PO QAM #30 cap 09/21/17 Clopidogrel Bisulfate (Clopidogrel) 75 mg PO QAM 30 Days #30 tab 10/10/18 FUROSEMIDE (LASIX) 20 mg PO QAM PRN #0 10/10/18 carvedilol 12.5 mg PO BID #60 tab 10/10/18 diltiazem HCl [Taztia XT] 120 mg PO BID #60 cap 10/10/18 hydrochlorothiazide 25 mg PO QAM #30 tab 10/10/18 irbesartan 150 mg PO BID #60 tab 10/10/18 pravastatin 40 mg PO HS #30 tab 10/10/18 - Action: The above medications, specifically ones for stroke treatment/prophylaxis, have been reviewed in detail with the patient and/or patient call center representative(s) prior to discharge. This includes indication, common adverse reactions, drug interactions, and medication administration. Medication counseling has been employed using the teach-back method to ensure understanding. - Outcome: The patient and/or patient call center representative(s) have demonstrated understanding of the medications. Please note, they are aware that the pharmacist will call them within 72 hours post-discharge to confirm that the appropriate medications are being taken and answer any further medication related questions the patient might have at that time. Contact information Individual to be contacted: Jeana Jonesjarred Relationship to patient (if applicable): Patient (self) Phone number: [phone] Best time to call: Before 12:00 PM Additional comments: * Met with patient and prior to discharge. * Patient seems very knowledgeable regarding her medications and recent changes made this admission. * Patient was previously on Plavix and aspirin for 1 year following stent placement 09/20/17. She was advised to D/C Plavix on 09/28/18. She still has some Plavix at home. She understands to take Plavix + aspirin x 3 weeks (along with continuing Eliquis), then she will D/C aspirin and continue Plavix indefinitely. She denies any major bleeding/bruising issues past year while on "triple therapy". She is aware to monitor for s/sx bleeding/bruising and to report to provider. * She understands to avoid NSAID's. Explained only Tylenol is safe OTC analgesic for pain/fever since she is on multiple "blood thinners" * Elevated BP noted during admission, multiple changes made to anti-HTN: * Coreg incr' from 6.25mg -> 12.5mg BID * Diltiazem ER changed from 240mg daily -> 120mg BID * HCTZ incr' from 12.5mg -> 25mg daily * Irbesartan 150mg BID -> *NEW* (replaces Diovan 160mg BID) * Pravastatin incr' from 20mg -> 40mg HS * Please note, according to PCP note from 09/28/18, patient was supposed to D/C omeprazole and just take ranitidine for GERD. Omeprazole was noted on her discharge medication list to be "continued" -- need to clarify with patient if she is still taking omeprazole. If so, recommend to change omeprazole to pantoprazole due to possible Plavix therapeutic failure with concomitant omeprazole (inhibits [id number] metabolism of Plavix into active drug) * Patient will f/u with PCP regarding glycemic and hypertension management to decr' recurrent stroke risk Thank you for allowing pharmacy to be involved in the care of this patient. Please call [phone] or [phone] with any additional questions
[2018-10-11] MEDS ORDERED: hydroCHLOROthiazide 25 MG TAB PO SCH (09:00)
[2018-10-12 03:38] LABS: 18KDIGG Band NONREACTIVE (NONREACTIVE); 23KDIGG Band NONREACTIVE (NONREACTIVE); 23KDIGM Band NONREACTIVE (NONREACTIVE); 28KDIGG Band NONREACTIVE (NONREACTIVE); 30KDIGG Band NONREACTIVE (NONREACTIVE); 39KDIGG Band NONREACTIVE (NONREACTIVE); 39KDIGM Band NONREACTIVE (NONREACTIVE); 41KDIGG Band REACTIVE (NONREACTIVE); 41KDIGM Band NONREACTIVE (NONREACTIVE); 45KDIGG Band NONREACTIVE (NONREACTIVE); 58KDIGG Band NONREACTIVE (NONREACTIVE); 66KDIGG Band NONREACTIVE (NONREACTIVE); 93KDIGG Band NONREACTIVE (NONREACTIVE); Lyme Antibodies, WB IgG NEGATIVE (NEGATIVE); Lyme Antibodies, WB IgM NEGATIVE (NEGATIVE)
--- NOTE | 2018-10-12 11:40 | Pharmacy Report ---
Pharmacist Post D/C Phone Note - Phone Note: Date of phone call: October 12, 2018. Individual with whom pharmacist spoke to: IRVIN COOPER The following questions were reviewed during the phone call with responses listed below each: Can you tell me the medications that you are currently taking as well as when and how you take each medication? -See Table Below When have you missed any doses of your medications? - none What side effects are you having from your medications, specifically, the new medications you were started on? - none What questions do you have about your medications? - none What problems are you having obtaining your medications? - none When is your next appointment with your primary care doctor? - 10/17/18 Additional comments: - I spoke with Ms. Cooper extensively re: the changes to her medications. She has a strong grasp on all the changes. Her BP this morning was 143/70, which is certainly an improvement. She is not taking omeprazole. We did discuss dietary changes to help improve her HTN: avoid canned soups, pizza, tacos. She knows to continue taking asa+plavix for 3 weeks and then to take plavix alone indefinitely. Continue eliquis. As per the Pharmacist Discharge Counseling for Stroke Patients Protocol, this phone call has been completed within 72 hours of discharge. Thank you for allowing us to be involved in the care of this patient. - Home Medications: Home Medications Medication Instructions Recorded Confirmed Ranitidine Hcl (ZANTAC) 150 mg PO HS #0 06/23/15 APIXABAN (ELIQUIS) 5 mg PO BID #0 09/09/17 Cyanocobalamin (Vitamin B-12) 500 mcg PO DAILY #0 09/09/17 Flecainide (Tambocor) 100 mg PO BID #0 09/09/17 GARLIC 400 mg PO DAILY #0 09/09/17 GLIPIZIDE (GLUCOTROL) 10 mg PO AMPM #0 09/09/17 MENATETREONE 3 tabs PO DAILY #0 09/09/17 METFORMIN HCL (GLUCOPHAGE) 500 mg PO BIDM #0 09/09/17 NUTRITIONAL SUPPLEMENTS (GRAPESEED 1 cap PO DAILY #0 09/09/17 EXTRACT) Sitagliptin (Januvia) 50 mg PO DAILY #0 09/09/17 Potassium Chloride (Micro-K Ext 10 meq PO DAILY #0 cap 09/19/17 Rel) New Rx's Medication Instructions Recorded Aspirin (Aspirin EC Low Dose) 81 mg PO QAM 30 Days #30 tab 09/21/17 Nitroglycerin (Nitrostat) 0.4 mg PO [id number] PRN #1 btl 09/21/17 OMEPRAZOLE (PRILOSEC) 40 mg PO QAM #30 cap 09/21/17 FUROSEMIDE (LASIX) 20 mg PO QAM PRN #0 10/10/18 carvedilol 12.5 mg PO BID #60 tab 10/10/18 diltiazem HCl [Taztia XT] 120 mg PO BID #60 cap 10/10/18 hydrochlorothiazide 25 mg PO QAM #30 tab 10/10/18 irbesartan 150 mg PO BID #60 tab 10/10/18 pravastatin 40 mg PO HS #30 tab 10/10/18
--- NOTE | 2018-11-09 20:19 | Discharge Summary ---
Date of Service date of admission - 10/08/2018 date of discharge - 10/10/2018 Admission HPI Per Admitting Provider 73 y/o female with history of CAD, a.fib, chronic diastolic CHF, T2DM and HTN who presented with a c/o weakness. Pt states that she has been unable to complete her usual daily activities for about 1 week and this has worsened during this time. She states she is sleeping far more than her usual. She thought she might have the flu so she came to the ED. She states that she is generally a very active person but has had worsening fatigue and SOB with any exertion. No chest pain. Her is present and agrees. She has been eating without issue. She did note mild nausea earlier in the week, but this resolved. She feels her SOB is worse when lying flat. She takes lasix PRN for LE swelling and she did take that once in the last week, but felt no better. Pt denies fever, abd pain, v/c/d, LE pain. She had no other flu-like sx, myalgias, cough, congestion, etc. She has been urinating without issue. Pt states she was to d/c her PO DM meds and start trulicity, however this was put on hold as she was not feeling well. Pt states plavix was recently stopped as well. Pt states she is supposed to take carvedilol 25mg BID, however when it was increased from 12.5mg BID to 25mg BID, she felt "sick" and so she went back to the 12.5mg BID dosing. She saw her PCP last week and states her BP was 170 systolic in the office. She states she generally "runs high", around 160s. She noted she was 190 systolic this AM. She did take her AMs meds. 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 She and her feel that it is at its baseline droop. She states that the area is generally numb, but it might have been a bit more numb this week. Denies confusion or issues with using her UE/LE. She feels her balance is worse over the last week. She notes that she could not sing as well this AM when she was singing her daily devotionals. Principal Diagnosis right-sided pontine stroke Discharge Exam Constitutional well developed, well nourished and + obese; no acute distress and not ill appearing ENMT external ear and nose normal, oropharynx normal Respiratory normal respiratory effort, lungs clear to auscultation Cardiovascular Rate/Rhythm: regular rate and regular rhythm Heart Sounds: normal S1 and normal S2; no murmur Vessels: posterior tibial pulses present and dorsalis pedis pulses present; no JVD Extremities: + pedal edema (trace b/l) Gastrointestinal (Abdomen) normal bowel sounds, soft, nontender, no hepatosplenomegaly Neurologic + focal motor deficit (minimal left-sided pronator drift; 4-5/5 strength LUE/LLE) mild left facial droop Psychiatric A+Ox3, euthymic affect Discharge Data Allergies Allergy/AdvReac Type Severity Reaction Status Date / Time acetaminophen Allergy Unknown . Verified 10/31/18 12:40 propoxyphene AdvReac Unknown Nausea Verified 10/31/18 12:40 UNKNOWN ANITBIOTICS Allergy Unknown . Uncoded 10/31/18 12:40 Consultations 1. neurology - Lio Grimm MD 2. PT, OT, speech Ordered Studies 1. echocardiogram - EF 65-70%, dilated IVC, grade 2 diastolic dysfunction 2. MRI brain - IMPRESSION: 1. 2.1 x 1.3 cm focus of restricted diffusion within the right aspect of mariana which reflects an acute to subacute infarct and corresponds to the finding on head CT. No hemorrhage. No significant mass effect. 2. 6 mm nodular enhancing focus along the right aspect of the falx which may reflect a tiny meningioma. 3. carotid duplex study - IMPRESSION: 1. Mixed plaque formation of the bilateral carotid bulbs and proximal ICAs results in 50-69% stenosis on the right and less than 50% stenosis on the left. 2. Normal antegrade vertebral flow bilaterally. 4. renal artery doppler study - IMPRESSION: 1. Elevated peak systolic velocity of the proximal right renal artery is suggestive of renal arterial stenosis. 2. 4 mm nonobstructing calculus of the interpolar right kidney. 5. CT head - IMPRESSION: 1. Ill-defined 1.1 x 2.0 cm hypodensity of the right central mariana suggests age- indeterminate infarction. Correlate clinically. 2. No acute intracranial hemorrhage, midline shift or territorial infarct. 3. Background mild chronic microvascular ischemic changes. Hospital Course (1) Cerebrovascular accident (CVA) of pontine structure: RIGHT pontine stroke. Likely due to small vessel disease. She had been faithful with her eliquis prior to admission; thus cardioembolic disease from a.fib unlikely as the cause of her stroke. No thrombus or PFO was seen on echo. Her left-sided deficits were mild on exam and she should make a very good recovery from this. Lipide profile showed LDL 97. Goal is <70 thus her pravastatin was increased to 40mg daily. Neurology recommended a combination of aspirin, plavix, and eliquis for ONE MONTH. After 1 month the aspirin will be STOPPED and she will continue on plavix/eliquis. Neurology also recommended NO treatment for the ICA stenosis at this time other than improved lipids/HTN/T2DM control. A repeat carotid study in 1 year is advised for surveillance. PT, OT, and speech evaluated the patient and no services were recommended since her deficits were so mild. (2) Acute on chronic diastolic CHF (congestive heart failure): The patient's dyspnea and other cardiopulmonary symptoms were likely due to decompensated CHF. She received diuresis while here with improved dyspnea, orthopnea, etc. Her decompensated CHF was likely due to uncontrolled HTN and noncompliance with medication regimen. She will take lasix on a weight-based protocol at home. Daily weights, salt restriction, etc were all recommended. She will follow-up with Dr. Samayoa shortly after discharge. (3) Hypertension: Markedly uncontrolled during her stay requiring several dose adjustments of medications. "split-dosing" of medications was recommended to help smooth out her 24-hour control. In light of her refractory HTN and multiple medication regimen a renal artery duplex study was obtained showing probable right-sided renal artery stenosis. She will need a dedicated CTA of the renal arteries. If CTA shows definitive renal artery stenosis of high-degree she may benefit from stenting. I asked her to speak with her viscosity tester about this. (4) Weakness: Likely due to stroke and decompensated CHF. She never had symptoms or signs of an infectious process. With treatment of her CHF and supportive care for her stroke her weakness did improve. (5) Diabetes: a1c 7.9% She was counseled on the importance of improved DM control. She was asked to follow-up with her PCP for this. (6) Atrial fibrillation with RVR: History of such. She will continue her home meds including flecainide to maintain NSR. Continue Eliquis for anticoagulation. NO PAF while hospitalized. (7) CAD (coronary artery disease): She had no ischemic symptoms during the stay. echo w/o wall motion abnormalities. troponin was negative. She will continue beta cm, high dose statin, asa, plavix, etc. (8) GERD (gastroesophageal reflux disease): In light of triple therapy of aspirin/plavix/eliquis she needs ongoing GI prophylaxis with zantac BID. (9) Chronic kidney disease, stage 3a: Creatinine stable while here with Cr of 1.2 to 1.3. (10) Hyperlipidemia: Pravastatin titrated to 40mg daily to drive her LDL to <70. (11) Carotid artery stenosis: bilateral. no intervention at this time. improved HTN/DM/lipids control needed. repeat study in 1 year for surveillance. (12) Renal artery atherosclerosis: Right-sided renal artery stenosis suggested on renal artery dopplers. Needs outpatient CTA of the renal arteries to definitively establish the diagnosis. Total Time Total Time Spent Total Time Spent (In Minutes): 45 Total Time Includes: Examination of the Patient, Discharge Planning, Medication Reconciliation and Communication With Other Providers Discharge Plan Discharge Items Patient Disposition: Home - Self-Care Reason For Visit: stroke Discharge Diagnosis: right-sided stroke with very mild left-sided weakness. uncontrolled hypertension. possible renal artery stenosis. mild congestive heart failure (fluid build-up in the lungs) - improved. Discharge Goals: Diagnostic testing and Therapeutic intervention Activity: As commented below Activity Comment: until your follow-up appointments no heavy exertional activities Bathing: No limitations Exercise/Sports: Wait until after follow-up appointment Driving/Machine Use Comment: wait until after follow-up appointments Non-emergency contact: Primary Care Provider and Lead Section Supervisor Call non-emergency contact if: you have any medication questions, your symptoms worsen and your temperature is above 100.5 Follow-up/Referrals: Ovidio Samayoa MD [Physician] - 10/20/18 10:45 am (Please, follow up with Dr. Samayoa (viscosity tester) in the [place] Office on TuesdayOctober 20 at 10:45 am. *The office is located at [address] [place] [address] in [place]. If you need to change this appointment, call the office at [phone].) Cinthia Rhoades MD [Primary Care Provider] - 10/17/18 11:30 am (Please, follow up with Dr. Rhoades on TuesdayOctober 17 at 11:30 am. *If you need to change this appointment, call the office at [phone].) Diet: Carb Consistent or DM2 and Heart Healthy Fluids: 1800ml (7 cups) Addtl Provider Instructions: From Rj Moreno - Hospitalist - You were admitted due to weakness and shortness of breath. We found a stroke deep in the right side of the brain. This was seen on CAT scan and MRI. You were seen by the neurologist, PT, OT and speech. We all felt that you were recovering well from the stroke with minimal residual left-sided weakness. The stroke was likely caused by plaque build-up in a small artery deep in the brain. To prevent a future stroke we suggest controlling your blood pressure well, controlling your diabetes, and controlling your cholesterol better. At this time we recommend the following - 1. INCREASE your pravastatin to 40mg once daily for your cholesterol. New prescription given. 2. RESTART your plavix (clopidogrel). Take the plavix INDEFINITELY. A prescription was given if you are out of this. 3. Take your baby aspirin 81mg daily for ONE MORE MONTH then STOP the aspirin. 4. Continue your eliquis as previous. 5. Talk to Dr. Rhoades about the trulicity medication for your diabetes. 6. Blood pressure medications -- at this time the following is recommended -- * carvedilol 12.5mg TWICE a day * diltiazem 120mg TWICE a day * hydrochlorothiazide 25mg once every morning (note the dose has been increased to 25mg and new prescription was provided) * irbesartan 150mg TWICE a day 7. For congestive heart failure -- check your weight EVERY morning. If you gain more than 2-3 pounds in 1-2 days please let your viscosity tester or family doctor know right away. This can be a sign of fluid retention. 8. Additional stroke instructions -- Risk Factors for Stroke: You can reduce your chances of stroke by working with your medical provider to adopt a healthy lifestyle. Some specific ways to lower your chance of stroke are: * If you are a smoker, now is the time to stop smoking cigarettes * If you are diabetic, improve the control of your blood sugars * Avoid excessive amounts of alcohol * Control high blood pressure * Lose weight if you are overweight * Be sure to lead an active lifestyle * Eat a healthy diet low in salt, cholesterol and fat You should know about other risk factors for stroke that you are unable to control. These include: * Age 55 years or older * Male gender * Certain racial groups: , or / * Family History of Stroke, Mini stroke or Heart Attack * Sickle Cell Disease Follow Up: It is important for you to keep your follow up appointments with your medical provider. Who to Call and When: Medical Emergencies: Call 911 immediately if you experience any of the following warning signs and symptoms of Stroke: * Sudden numbness or weakness of the face, arm or leg, especially on one side of the body * Sudden confusion, trouble speaking or understanding * Sudden trouble seeing in one or both eyes * Sudden trouble walking, dizziness, loss of balance or coordination * Sudden severe headache with no cause Do not delay calling 911 if you experience any warning signs or symptoms of a stroke. Delay in seeking medical attention may affect what treatments can be given to you. . 9. You may have a condition called "renal artery stenosis." This is when you have plaque build-up in the arteries leading to your kidneys. If this condition is present it can make it hard to control your blood pressure. Please talk to your viscosity tester or family doctor about additional testing for this. 10. follow-up - see separate section. 11. return to [facility] if - * you develop worsening left-sided weakness, numbness, or difficulty walking * you develop new-onset difficulty speaking, swallowing, etc * you have worsening shortness of breath or chest pain * any other concerns Prescriptions: Discontinued Pravastatin (Pravachol ) 20 MG tablet 20 mg PO HS Qty: 0 RF: 0 FUROSEMIDE (LASIX) 20 MG tablet 20 mg PO EDEMA Qty: 0 RF: 0 Diltiazem HCl Coated Beads (Diltiazem HCl ER) 240 MG tablet 240 mg PO DAILY Qty: 30 RF: 0 CARVEDILOL (COREG) 6.25 MG tablet 6.25 mg PO BID Qty: 0 RF: 0 HYDROCHLOROTHIAZIDE (HCTZ) 12.5 MG capsule 12.5 mg PO QAM Qty: 0 RF: 0 VALSARTAN (DIOVAN) 320 MG tablet 160 mg PO BID Qty: 0 RF: 0 Clopidogrel Bisulfate (Clopidogrel) 75 MG tablet 75 mg PO QAM 30 Days Qty: 30 RF: 0 No Action aspirin [Aspir-81] 81 mg Tablet,Delayed Release (Dr/Ec) 81 mg PO DAILY RF: 0 metformin 500 mg tablet 500 mg PO BIDM RF: 0 carvedilol 12.5 mg tablet 12.5 mg PO BID RF: 0 pravastatin 40 mg tablet 40 mg PO HS RF: 0 diltiazem HCl 240 mg capsule,extended release 24hr 120 mg PO BID RF: 0 glipizide 10 mg tablet 10 mg PO BID RF: 0 clopidogrel 75 mg tablet 75 mg PO DAILY RF: 0 cyanocobalamin (vitamin B-12) 500 mcg Tablet 500 mcg PO PM RF: 0 ranitidine HCl 150 mg tablet 150 mg PO BID RF: 0 flecainide 100 mg tablet 100 mg PO BID RF: 0 nitroglycerin 0.4 mg Tablet, Sublingual 0.4 mg sublingual DIRECTED PRN (Reason: Chest Pain) RF: 0 hydrochlorothiazide 25 mg tablet 25 mg PO QAM RF: 0 furosemide 20 mg tablet 20 mg PO DIRECTED PRN (Reason: Edema) RF: 0 irbesartan 300 mg tablet 150 mg PO BID RF: 0 garlic 400 mg Tablet 400 mg PO DAILY RF: 0 potassium chloride 10 mEq tablet,ER particles/crystals 10 meq PO DAILY RF: 0 Eliquis 5 mg tablet 5 mg PO BID RF: 0 Trulicity 0.75 mg/0.5 mL Pen Injector SUBCUT WK RF: 0 hydralazine 10 mg Tablet 10 mg PO QID Qty: 120 RF: 0 Stand-Alone Forms: Medications to Prevent Stroke, [facility]/Other Patient Handouts: Stroke Ischemic, Stroke Risk Factors, Stroke Prevent Recurrent Discharge Orders: Discharge Order (Routine); Ordered 10/10/18 Ordered By: Rj Moreno Admission Data Admit Date/Time: 10/08/18 18:35 Attending Provider: Rj Moreno Admit Provider: Qian Monaco Primary Care Provider: Cinthia Rhoades Other Providers: Tima Grimm III Service: Telemetry Other Interventions: Discharge Summary Assessment (RN) Last Done: 10/10/18 17:36 DC Date/Time DO NOT enter until pt leaves facility: 10/10/18 18:00
== END 2018-10-10 18:00 | disposition home or self-care (01) | DRG 64 ==
LOC: ED 13:52 → SUATTDRO 18:35 → 2E 18:35
DX: Z88.8 Allergy status to other drugs, medicaments and biological substances; N18.3 Chronic kidney disease, stage 3 (moderate); I13.0 Hypertensive heart and chronic kidney disease with heart failure and stage 1 through stage 4 chronic kidney disease, or unspecified chronic kidney disease; R29.700 NIHSS score 0; Z95.5 Presence of coronary angioplasty implant and graft; I65.23 Occlusion and stenosis of bilateral carotid arteries; E11.22 Type 2 diabetes mellitus with diabetic chronic kidney disease; Z79.82 Long term (current) use of aspirin; I67.82 Cerebral ischemia; I50.33 Acute on chronic diastolic (congestive) heart failure; I63.81 Other cerebral infarction due to occlusion or stenosis of small artery; Z88.6 Allergy status to analgesic agent; Z79.84 Long term (current) use of oral hypoglycemic drugs; I48.1 Persistent atrial fibrillation; K21.9 Gastro-esophageal reflux disease without esophagitis; Z79.899 Other long term (current) drug therapy; Z83.3 Family history of diabetes mellitus; E78.5 Hyperlipidemia, unspecified; Z88.1 Allergy status to other antibiotic agents; G81.94 Hemiplegia, unspecified affecting left nondominant side; I16.0 Hypertensive urgency; Z79.01 Long term (current) use of anticoagulants; Z82.49 Family history of ischemic heart disease and other diseases of the circulatory system; Z51.81 Encounter for therapeutic drug level monitoring

== ENCOUNTER 2018-10-31 10:26 | Observation (INO) ==
--- NOTE | 2018-10-31 11:46 | XRay Report ---
XR chest 1V portable HISTORY: Atypical chest pain COMPARISON: Chest 10/08/2018. FINDINGS: No pneumothorax. No pleural effusions. The heart remains enlarged. There are bibasilar line ar densities which are not significantly changed. No new focal lung consolidations. There is mild freddy tral pulmonary vascular congestion without overt edema. IMPRESSION: 1. No significant change compared the prior study. 2. Bibasilar linear densities are nonspecific but favor scarring or atelectasis 3. No change in the cardiomegaly and mild congestive change. Electronically signed by: Epifanio Acuña M.D. 10/31/2018 11:45 AM
[2018-10-31] MEDS ORDERED: ASPIRIN CHEW 324 MG PO STA (12:10)
[2018-10-31] MEDS ORDERED: NITROGLYCERIN SL 0.4 MG/TAB TAB SL PRN (12:11)
[2018-10-31] MEDS ORDERED: NITROGLYCERIN 2% OINTMENT 30GM TUBE EXT STA (12:12)
[2018-10-31 12:33] LABS: Basophils # (auto) 0.05 K/uL (0-0.2); Basophils % (auto) 0.5 %; Eosinophils % (auto) 2.2 %; Hematocrit (blood only) 39.5 % (37-47); Hemoglobin 12.9 g/dL (12.0-16.0); Immature Granulocytes # (auto) 0.02 K/uL (0.00-0.02); Immature Granulocytes % (auto) 0.2 %; Lymphocytes # (auto) 1.65 K/uL (1.2-3.4); Lymphocytes % (auto) 18.1 %; Mean Corpuscular Hgb Conc 32.7 g/dL (32-36); Mean Corpuscular Volume 83.9 fL (80-100); Mean Platelet Volume 9.7 fL (7.4-10.4); Monocytes # (auto) 0.69 K/uL (0.11-0.59); Monocytes % (auto) 7.6 %; Neutrophils # (auto) 6.49 K/uL (1.4-6.5); Neutrophils % (auto) 71.4 %; Platelet Count 192 K/uL (130-400); RDW Coefficient of Variation 15.1 % (11.5-14.5); RDW Standard Deviation 46.9 fL (36.4-46.3); Red Blood Count 4.71 M/uL (4.2-5.4)
[2018-10-31 12:42] LABS: Partial Thromboplastin Time 27.6 Seconds (21.0-31.0); Prothrombin Time 10.4 Seconds (9.0-12.0)
[2018-10-31 12:50] LABS: Alanine Aminotransferase 18 U/L (12-78); Albumin Level 3.7 gm/dl (3.4-5.0); Aspartate Aminotransferase 8 U/L (15-37); BUN Creatinine Ratio 14.6 (10-20); Blood Urea Nitrogen 18 mg/dl (7-18); Calcium 8.8 mg/dl (8.5-10.1); Carbon Dioxide 28 mmol/L (21-32); Chloride 106 mmol/L (98-107); Creatinine Clr Calc Pharmacy 40.8 ml/min; Est GFR (African American) 48.6; Est GFR (Non-African American) 41.9; Glucose 108 mg/dl (70-99); Magnesium 2.4 mg/dl (1.8-2.4); Potassium 3.7 mmol/L (3.5-5.1); Sodium 139 mmol/L (136-145)
[2018-10-31 12:55] LABS: Albumin Globulin Ratio 1.1 (0.9-2); Alkaline Phosphatase 77 U/L (45-117); Bilirubin,Total 0.3 mg/dl (0.2-1); Creatine Kinase MB < 1.0 ng/ml (0.5-3.6); Globulin 3.5 gm/dl (2.5-4.0); Total Protein 7.2 gm/dl (6.4-8.2); Troponin I < 0.015 ng/ml (0-0.045)
--- NOTE | 2018-10-31 14:07 | History & Physical Report ---
Date of Service October 31, 2018 Assessment & Plan (1) Chest pain: 73 year old female with known CAD s/p stent to LAD, DM, HLP, poorly controlled HTN presenting with CP which is similar in nature to prior cardiac CP. Patient hypertensive. Troponin x 1 negative. EKG with no acute ischemic changes. -Admit to PCU -Trend troponin x 3 sets -Continue Plavix, Carvedilol, Pravastatin, Irbesartan -Nitro PRN -Cardiology consult - patient follows with Dr. Dangelo, appreciate assistance with this case Present on Admission?: Yes (2) Hypertension: Patient with poorly controlled hypertension. She has stable CKD, GFR=41.9, K=3.7. Renal ultrasound performed on 10/10/18 suggests unilateral right sided renal artery stenosis. Findings were discussed with patient during a followup appointment with Dr. Lee on 18 October. Note states that patient wishes to pursue CTA for additional workup. -Continue Carvedilol, Irbesartan, HCTZ -Consider inpatient CTA of renal arteries after acute issue of CP has resolved ( will not order this study yet). VS scheduling this study on discharge. Patient wishes for this matter to be addressed. -Monitor renal function and electrolytes -Continue to monitor BP - Labetalol IV PRN Present on Admission?: Yes (3) Diabetes: Blood sugar presently 108. HgAIC=7.9 on 10/08/18 -Patient is scheduled to receive her Trulicity injection today -Hold Metformin and Glipizide -Lantus 7 u BID -ISS Present on Admission?: Yes (4) Hyperlipidemia: Chronic -Continue statin Present on Admission?: Yes (5) Chronic kidney disease, stage 3a: Stable BUN and Cr, adequate UOP, electrolytes WNL. -Continue to monitor BUN, Cr, electrolytes and UOP -Avoid nephrotoxic agents -Consider CTA renal vasculature for possible SEMAJ Present on Admission?: Yes (6) GERD (gastroesophageal reflux disease): Well controlled -Continue Ranitidine Present on Admission?: Yes (7) Atrial fibrillation: Patient presently in NSR at 63bpm. Anticoagulated with Eliquis -Continue Diltiazem 120mg po BID -Continue Eliquis -Continue Flecainide F/E/N - Heplock. Electrolytes WNL. Continue PO K supplement 10mEq daily, monitor BMP, CC/Heart healthy diet as tolerated Ppx - Patient anticoagulated with Eliquis Code - Full Dispo -Observation to PCU History of Present Illness Chief Complaint: chest pain Primary Care Provider: Cinthia Rhoades MD Jeana Hooks is a pleasant 73yo C female with history of HTN, HLP, DM, CAD s/p stent to LAD 09/2017, right pontine CVA 10/08/18 presenting today with chest pain. Patient states that this AM she was in her kitchen doing dishes. She felt very weak and tired. She sat down to rest for a bit then got up and started doing the dishes again. She then developed substernal chest heaviness with pain radiating into the right neck. Also with palpitations at that time. She denies diaphoresis/SOB/nausea/dizziness. CP was non-pleuritic. Lasted appx 1 hour. She took some liquid cayenne pepper which relieved the discomfort. Patient states that her pain today is similar to when she had her stent placed last September. She denies headache, visual deficit or focal numbness/weakness/tingling. Denies weight gain, worsening edema or orthopnea. She denies chest pain with exertion but does become short of breath with exertion which has gotten worse over the last month. No additional complaints at this time. Patient presently CP free. ER Course: ASA 324mg. Nitro SL and patch Allergies Allergy/AdvReac Type Severity Reaction Status Date / Time acetaminophen Allergy Unknown . Verified 10/31/18 12:40 propoxyphene AdvReac Unknown Nausea Verified 10/31/18 12:40 UNKNOWN ANITBIOTICS Allergy Unknown . Uncoded 10/31/18 12:40 Home Medications Home Medications Medication Instructions Recorded Confirmed Type apixaban [Eliquis] 5 mg PO BID 10/31/18 10/31/18 History carvedilol 12.5 mg PO BID 10/31/18 10/31/18 History clopidogrel 75 mg PO DAILY 10/31/18 10/31/18 History cyanocobalamin (vitamin B-12) 500 mcg PO PM 10/31/18 10/31/18 History diltiazem HCl 120 mg PO BID 10/31/18 10/31/18 History dulaglutide [Trulicity] 0 mg SUBCUT WK 10/31/18 10/31/18 History flecainide 100 mg PO BID 10/31/18 10/31/18 History furosemide 20 mg PO DIRECTED PRN 10/31/18 10/31/18 History garlic 400 mg PO DAILY 10/31/18 10/31/18 History glipizide 10 mg PO BID 10/31/18 10/31/18 History hydrochlorothiazide 25 mg PO QAM 10/31/18 10/31/18 History irbesartan 150 mg PO BID 10/31/18 10/31/18 History metformin 500 mg PO BIDM 10/31/18 10/31/18 History nitroglycerin 0.4 mg SUBLINGUAL DIRECTED PRN 10/31/18 10/31/18 History potassium chloride 10 meq PO DAILY 10/31/18 10/31/18 History pravastatin 40 mg PO HS 10/31/18 10/31/18 History ranitidine HCl 150 mg PO BID 10/31/18 10/31/18 History Past Med/Surg History Medical History Hypertension (Chronic) Diabetes (Chronic) Atrial fibrillation with RVR (Chronic) CAD (coronary artery disease) CKD (chronic kidney disease) CVA (cerebral vascular accident) GERD (gastroesophageal reflux disease) Hyperlipidemia Surgical History History of heart artery stent (Acute) History of section (Resolved) History of cataract surgery History of tonsillectomy Family History Mother , age 73 of heart issues. Heart disease Father , age 72 of heart issues the Heart disease Hypertension Other Diabetes Social History Preferred Language: Sami Communication Ability: Effective Launch Engineer Required: No Beliefs That Will Affect Care: Mormon Mormon Beliefs: no life support Current Living Situation: Spouse Other Information That Helps Us Care for You: No Feels Safe at Home: Yes Safety Concerns: Feels Safe At This Time Smoking Status: Never smoker Do You Dip or Chew Tobacco: No Second Hand Exposure: No Tobacco Cessation Education Requested by Patient: No Hx Alcohol Use: No Hx Substance Use: No Review of Systems Review of Systems: All systems reviewed & are unremarkable except as noted in HPI & below Physical Exam Physical Exam: General: patient resting comfortably, NAD, non-toxic in appearance, AA&O x 4 Skin: warm, dry, intact, no rashes or lesions HEENT: NC/AT, PERRL, EOMI, anicteric sclera, conjunctiva without injection, external ear normal to inspection and nontender, nares patent, moist mucus membranes, dentition intact, no oropharyngeal lesions, neck supple, trachea midline, no LAD, no thyromegaly, no JVD Heart: +S1/S2, regular, 3/6 BARBARA at left sternal border with radiation across the precordium to carotids, no r/g Lungs: equal air entry bilaterally, no rhonchi/wheezes, soft crackles in bilateral bases Abd: +BS, soft, NT/ND, no masses/organomegaly/ascites Ext: warm, 2+ pulses in UE/LE bilaterally, no clubbing/cyanosis, trace pitting edema of bilateral LEs Neuro:patient AA&O x 4, speech intact, no facial droop, moving all extremities on command, slightly decreased strength of LLE/LUE, 4+/5 Results & Data Vital Signs (Past 12 Hours) Vital Signs Temp Pulse Pulse Resp BP BP Pulse Ox 10/31/18 12:24 66 18 196/75 H 96 10/31/18 11:42 71 16 197/86 H 94 10/31/18 11:25 62 16 95 10/31/18 10:40 36.7 C 68 20 184/76 H 93 Laboratory Results Lab Results 10/31/18 10/31/18 10/31/18 Range/Units 12:15 12:15 12:15 WBC 9.10 (4.8-10.8) K/uL RBC 4.71 (4.2-5.4) M/uL Hgb 12.9 (12.0-16.0) g/dL Hct 39.5 (37-47) % MCV 83.9 (80-100) fL MCH 27.4 (25-34) pg MCHC 32.7 (32-36) g/dL RDW Std Deviation 46.9 H (36.4-46.3) fL RDW Coeff of Nathaly 15.1 H (11.5-14.5) % Plt Count 192 (130-400) K/uL MPV 9.7 (7.4-10.4) fL Immature Gran % (Auto) 0.2 % Neut % (Auto) 71.4 % Lymph % (Auto) 18.1 % [place] % (Auto) 7.6 % Eos % (Auto) 2.2 % Baso % (Auto) 0.5 % Immature Gran # (Auto) 0.02 (0.00-0.02) K/uL Neut # (Auto) 6.49 (1.4-6.5) K/uL Lymph # (Auto) 1.65 (1.2-3.4) K/uL [place] # (Auto) 0.69 H (0.11-0.59) K/uL Eos # (Auto) 0.20 (0-0.5) K/uL Baso # (Auto) 0.05 (0-0.2) K/uL PT 10.4 (9.0-12.0) Seconds INR 1.0 (0.9-1.1) APTT 27.6 (21.0-31.0) Seconds PTT Ratio 1.0 Sodium 139 (136-145) mmol/L Potassium 3.7 (3.5-5.1) mmol/L Chloride 106 (98-107) mmol/L Carbon Dioxide 28 (21-32) mmol/L Anion Gap 5.0 (3-11) BUN 18 (7-18) mg/dl Creatinine 1.26 H (0.6-1.2) mg/dl Est Cr Clr Drug Dosing 40.8 ml/min Est GFR ( Amer) 48.6 Est GFR (Non-Af Amer) 41.9 BUN/Creatinine Ratio 14.6 (10-20) Glucose 108 H (70-99) mg/dl POC Glucose (70-99) Calcium 8.8 (8.5-10.1) mg/dl Magnesium 2.4 (1.8-2.4) mg/dl Total Bilirubin 0.3 (0.2-1) mg/dl AST 8 L (15-37) U/L ALT 18 (12-78) U/L Alkaline Phosphatase 77 (45-117) U/L CK-MB (CK-2) < 1.0 (0.5-3.6) ng/ml Troponin I < 0.015 (0-0.045) ng/ml Total Protein 7.2 (6.4-8.2) gm/dl Albumin 3.7 (3.4-5.0) gm/dl Globulin 3.5 (2.5-4.0) gm/dl Albumin/Globulin Ratio 1.1 (0.9-2) 10/31/18 Range/Units 12:30 WBC (4.8-10.8) K/uL RBC (4.2-5.4) M/uL Hgb (12.0-16.0) g/dL Hct (37-47) % MCV (80-100) fL MCH (25-34) pg MCHC (32-36) g/dL RDW Std Deviation (36.4-46.3) fL RDW Coeff of Nathaly (11.5-14.5) % Plt Count (130-400) K/uL MPV (7.4-10.4) fL Immature Gran % (Auto) % Neut % (Auto) % Lymph % (Auto) % [place] % (Auto) % Eos % (Auto) % Baso % (Auto) % Immature Gran # (Auto) (0.00-0.02) K/uL Neut # (Auto) (1.4-6.5) K/uL Lymph # (Auto) (1.2-3.4) K/uL [place] # (Auto) (0.11-0.59) K/uL Eos # (Auto) (0-0.5) K/uL Baso # (Auto) (0-0.2) K/uL PT (9.0-12.0) Seconds INR (0.9-1.1) APTT (21.0-31.0) Seconds PTT Ratio Sodium (136-145) mmol/L Potassium (3.5-5.1) mmol/L Chloride (98-107) mmol/L Carbon Dioxide (21-32) mmol/L Anion Gap (3-11) BUN (7-18) mg/dl Creatinine (0.6-1.2) mg/dl Est Cr Clr Drug Dosing ml/min Est GFR ( Amer) Est GFR (Non-Af Amer) BUN/Creatinine Ratio (10-20) Glucose (70-99) mg/dl POC Glucose 107 H (70-99) Calcium (8.5-10.1) mg/dl Magnesium (1.8-2.4) mg/dl Total Bilirubin (0.2-1) mg/dl AST (15-37) U/L ALT (12-78) U/L Alkaline Phosphatase (45-117) U/L CK-MB (CK-2) (0.5-3.6) ng/ml Troponin I (0-0.045) ng/ml Total Protein (6.4-8.2) gm/dl Albumin (3.4-5.0) gm/dl Globulin (2.5-4.0) gm/dl Albumin/Globulin Ratio (0.9-2) Diagnostic Findings XR chest 1V portable HISTORY: Atypical chest pain COMPARISON: Chest 10/08/2018. FINDINGS: No pneumothorax. No pleural effusions. The heart remains enlarged. There are bibasilar linear densities which are not significantly changed. No new focal lung consolidations. There is mild central pulmonary vascular congestion without overt edema. IMPRESSION: 1. No significant change compared the prior study. 2. Bibasilar linear densities are nonspecific but favor scarring or atelectasis 3. No change in the cardiomegaly and mild congestive change. Electronically signed by: Epifanio Acuña M.D. 10/31/2018 11:45 AM Dictated: 10/31/18 1144 Transcribed: 10/31/18 1144 ECHOCARDIOGRAM: 09/10/17: The left ventricle is normal in size There is mild concentric left ventricular hypertrophy Left ventricular systolic function is normal. Ejection Fraction = 65-70%. The left ventricular wall motion is normal The right ventricle is normal in size and function. The right ventricular systolic function is normal as assessed by tricuspid annular plane systolic excursion (TAPSE) (normal >1.5 cm). The left atrium is moderately dilated. Aortic valve sclerosis mild, without significant aortic valvular stenosis. Normal inferior vena cava size and collapsability with sniff indicates a normal right atrial pressure of 3 mmHg Diastolic dysfunction, Grade II, consistent with elevated left atrial pressure CARDIAC CATHETERIZATION: 09/20/17: 1. Severe single vessel coronary artery disease - 95+% proximal to mid LAD stenosis 2. Hypertension with elevated intracardiac filling pressure 3. Successful PCI of proximal-mid LAD with one drug-eluting stent (4.0 x 23 Xience). US duplex renal artery: 10/10/18 HISTORY: 73 years-old Female uncontrolled HTN;eval SEMAJ acute hypertension with concern for renal arterial stenosis COMPARISON: None available TECHNIQUE: Multiple real-time sonographic images of the bilateral kidney vascular structures were obtained assessing grayscale appearance, color and spectral flow FINDINGS: The aorta demonstrates peak systolic velocity 108 cm/s with normal plug flow. Right kidney measures 11.7 cm in length. Patent renal vein. Patent arcuate branches. Proximal right renal artery demonstrates peak systolic velocity 182 cm/s with resistive index of 0.86. 4 mm nonobstructing calculus of the interpolar right kidney. No hydronephrosis or suspicious mass lesions about the right kidney identified. Left kidney measures 10.9 cm in length. Patent left renal vein. Patent arterial branches. Peak systolic velocity 138 cm/s about the mid aspect of the left renal artery with resistive index of 0.86. No left-sided renal calculi or hydronephrosis identified. IMPRESSION: 1. Elevated peak systolic velocity of the proximal right renal artery is suggestive of renal arterial stenosis. 2. 4 mm nonobstructing calculus of the interpolar right kidney. The above report was generated using voice recognition software. It may contain grammatical, syntax or spelling errors. Electronically signed by: Khari Ramires M.D. 10/10/2018 2:17 PM ECG Additional Comments: Sinus bradycardia at 58bpm, normal axis, ZR=703, QRS=90, DLe=356, old ischemic changes in inferior and anterior territories noted in September 2017 and unchanged, no acute ischemic changes Code Status & VTE Plan Code Status FULL Patient does not wish to have long-term life support but agrees with initial resuscitative efforts VTE Prophylaxis Plan VTE Prophylaxis will be ordered: No Reason for no VTE drug order: Treatment not indicated (1) Chest pain Chest pain type: unspecified Qualified Code(s): R07.9 - Chest pain, unspecified (2) Hypertension Hypertension type: unspecified Qualified Code(s): I10 - Essential (primary) hypertension (3) Diabetes Diabetes mellitus type: type 2 Diabetes mellitus moth exterminator insulin use: without moth exterminator use Diabetes mellitus complication status: without complication Qualified Code(s): E11.9 - Type 2 diabetes mellitus without complications (4) Hyperlipidemia Hyperlipidemia type: mixed hyperlipidemia Qualified Code(s): E78.2 - Mixed hyperlipidemia (5) GERD (gastroesophageal reflux disease) Esophagitis presence: without esophagitis Qualified Code(s): K21.9 - Gastro- esophageal reflux disease without esophagitis (6) Atrial fibrillation Atrial fibrillation type: unspecified Qualified Code(s): I48.91 - Unspecified atrial fibrillation
[2018-10-31] MEDS ORDERED: ALUMINUM/MAGNESIUM SUSP 30 ML UDC PO PRN (14:23)
[2018-10-31] MEDS ORDERED: LABETALOL HCL IV 5 MG/ML 20ML IV PRN (14:23)
[2018-10-31] MEDS ORDERED: GLUCOSE 10 TABS/TUBE PO PRN (14:23)
[2018-10-31] MEDS ORDERED: GLUCOSE 40% GEL 15 GM TUBE PO PRN (14:23)
[2018-10-31] MEDS ORDERED: ONDANSETRON INJ 2 MG/ML 2 ML VIAL IV PRN (14:23)
[2018-10-31] MEDS ORDERED: CARBOHYDRATES FOR HYPOGLYCEMIA PO PRN (14:23)
[2018-10-31] MEDS ORDERED: GLUCAGON FOR INJ 1 MG VIAL SQ PRN (14:23)
[2018-10-31] MEDS ORDERED: DEXTROSE 50% 50 ML SYRINGE IV PRN (14:23)
[2018-10-31] MEDS ORDERED: HydrALAZINE HCL 20 MG/ML VIAL IV ONE (14:34)
--- NOTE | 2018-10-31 17:02 | Cardiology Consultation ---
Date of Consultation October 31, 2018 Assessment & Plan (1) Chest pain: Her chest pain is atypical. She had some associated right shoulder discomfort. The episode itself happened without exertion. It was extended in duration. However, there has been no elevation in her cardiac biomarkers. She was admitted for trending of the biomarkers. I think if his no elevation in her biomarkers this can be discounted as noncardiac. She is currently not having symptoms of chest discomfort. Her EKG did not suggest any acute ischemia or injury. (2) Atrial fibrillation: She has a history of persistent atrial fibrillation. She has been maintained on flecainide and presents in sinus rhythm today. She is appropriately anticoagulated. She is also on aspirin and Plavix if she did have a cerebral vascular event when Plavix was discontinued. (3) CAD (coronary artery disease): She has a history percutaneous intervention involving the left anterior descending artery. She is on appropriate medication for secondary prevention to include aspirin, Plavix, irbesartan, carvedilol and pravastatin (4) Hypertension: Poorly controlled overall. She is on several agents for high blood pressure. The some debate about the significance of a right renal artery stenosis. The patient was referred for noninvasive imaging with CT scanning. Perhaps this can be performed prior to discharge. (5) Valvular heart disease: Patient with mild mitral regurgitation. She also has significant aortic sclerosis which is most likely responsible for the murmur on exam. History of Present Illness Reason for Consultation: Chest pain Requesting Physician: Blake Attending Physician: Janina Lozano, DO History of Present Illness Patient is a 73-year-old woman with a history of coronary artery disease having previously undergone percutaneous intervention to the LAD in 2018. Patient states that this morning she woke feeling well. She was able to perform some mild activity prior to washing the dishes. At that point she felt severely fatigued and had to rest. Shortly thereafter she developed a sensation of heavi ness in the precordial area and some discomfort in the right shoulder. She felt that the symptoms were reminiscent of her chest discomfort leading up to her stenting in 2018. The symptoms were relatively mild in severity. They were constant in nature and lasted for approximately an hour and a half before resolving. Prior to leaving for the hospital the patient took a home remedy consisting of cayenne pepper. This relieved her symptoms in route to [facility]. She has not had any recurrence since that time. Lately the patient has had waxing and waning symptoms of fatigue. Some days she has plenty of energy and other days she feels quite tired. Overall she performs very mild activity. She can walk for about 10 minutes before becoming fatigued. This occurs on level ground she does not tried at ascend stairs or hills. She can do mild housework. She does not do more strenuous activity. She does not have exertional chest discomfort. She has some mild dyspnea with exertion. She tends to sleep on her right side is on her left side she has symptoms associated with her hiatal hernia. She is not likely on her back is more difficult to breathe. She has not report paroxysmal nocturnal dyspnea. She has not had dizziness or lightheadedness. She has not suffered syncope. She has not had palpitations recently. She does keep track of her blood pressure at home and is generally high. She also has variable heart rates. This morning she measured her blood pressure and heart rate and she reported a pulse in the 30s. Allergies Allergy/AdvReac Type Severity Reaction Status Date / Time acetaminophen Allergy Unknown . Verified 10/31/18 12:40 propoxyphene AdvReac Unknown Nausea Verified 10/31/18 12:40 UNKNOWN ANITBIOTICS Allergy Unknown . Uncoded 10/31/18 12:40 Home Medications Home Medications Medication Instructions Recorded Confirmed Type apixaban [Eliquis] 5 mg PO BID 10/31/18 10/31/18 History carvedilol 12.5 mg PO BID 10/31/18 10/31/18 History clopidogrel 75 mg PO DAILY 10/31/18 10/31/18 History cyanocobalamin (vitamin B-12) 500 mcg PO PM 10/31/18 10/31/18 History diltiazem HCl 120 mg PO BID 10/31/18 10/31/18 History dulaglutide [Trulicity] 0 mg SUBCUT WK 10/31/18 10/31/18 History flecainide 100 mg PO BID 10/31/18 10/31/18 History furosemide 20 mg PO DIRECTED PRN 10/31/18 10/31/18 History garlic 400 mg PO DAILY 10/31/18 10/31/18 History glipizide 10 mg PO BID 10/31/18 10/31/18 History hydrochlorothiazide 25 mg PO QAM 10/31/18 10/31/18 History irbesartan 150 mg PO BID 10/31/18 10/31/18 History metformin 500 mg PO BIDM 10/31/18 10/31/18 History nitroglycerin 0.4 mg SUBLINGUAL DIRECTED PRN 10/31/18 10/31/18 History potassium chloride 10 meq PO DAILY 10/31/18 10/31/18 History pravastatin 40 mg PO HS 10/31/18 10/31/18 History ranitidine HCl 150 mg PO BID 10/31/18 10/31/18 History Patient History Medical History Hypertension (Chronic) Diabetes (Chronic) Atrial fibrillation with RVR (Chronic) CAD (coronary artery disease) CKD (chronic kidney disease) CVA (cerebral vascular accident) GERD (gastroesophageal reflux disease) Hyperlipidemia Surgical History History of heart artery stent (Acute) History of section (Resolved) History of cataract surgery History of tonsillectomy Family History Mother , age 73 of heart issues. Heart disease Father , age 72 of heart issues the Heart disease Hypertension Other Diabetes Social History Preferred Language: Vietnamese Communication Ability: Effective [employer] Tech Required: No Beliefs That Will Affect Care: Catholic Catholic Beliefs: no life support Current Living Situation: Spouse Other Information That Helps Us Care for You: No Feels Safe at Home: Yes Safety Concerns: Feels Safe At This Time Smoking Status: Never smoker Do You Dip or Chew Tobacco: No Second Hand Exposure: No Tobacco Cessation Education Requested by Patient: No Hx Alcohol Use: No Hx Substance Use: No Review of Systems Review of Systems: All systems reviewed & are unremarkable except as noted in HPI & below No symptoms of heartburn. Physical Exam Physical Exam: She is alert and oriented x3. Mood affect appear normal. She answered all questions appropriately. HEENT: Sclerae are anicteric. Pupils are equal and reactive to light and accommodation. Extraocular movements were intact. Neuro: Cranial nerves intact Neck: Examination of the submandibular region did not reveal any significant lymphadenopathy. Carotids are palpable bilaterally and free of bruits on auscultation. There was no evidence of jugular venous distention. The thyroid was not enlarged. Lungs: Lungs are clear to auscultation bilaterally. There are no rales wheezes or rhonchi. She has normal respiratory effort without use of accessory muscles. There is normal pulmonary excursion. Cardiac: The rhythm was regular. S1 and S2 were normal. Harsh holosystolic murmur. The PMI was not markedly displaced on palpation. Abdomen: The abdomen was soft and nontender. Extremities: Patient has bilateral radial pulses that are equal in intensity. There is no evidence cyanosis or clubbing. There was no evidence of significant peripheral edema bilaterally. Skin: There are no rashes noted on examination today. Results & Data Vital Signs (Past 12 Hours) Vital Signs Temp Pulse Pulse Resp BP BP BP 10/31/18 15:16 36.8 C 20 170/72 H 10/31/18 14:24 36.8 C 65 20 198/72 H 10/31/18 14:00 58 L 18 10/31/18 13:45 70 31 H 10/31/18 13:40 63 20 190/75 H 10/31/18 13:36 190/75 H 10/31/18 13:30 61 29 H 10/31/18 13:15 62 15 10/31/18 13:00 59 L 22 10/31/18 12:30 68 21 10/31/18 12:24 66 18 196/75 H 10/31/18 12:22 60 21 196/75 H 10/31/18 12:00 65 15 10/31/18 11:42 71 16 197/86 H 10/31/18 11:41 22 10/31/18 11:29 60 19 197/86 H 10/31/18 11:25 62 16 10/31/18 10:40 36.7 C 68 20 184/76 H Pulse Ox 10/31/18 15:16 95 10/31/18 14:24 95 10/31/18 14:00 93 10/31/18 13:45 96 10/31/18 13:40 92 10/31/18 13:36 10/31/18 13:30 95 10/31/18 13:15 93 10/31/18 13:00 94 10/31/18 12:30 96 10/31/18 12:24 96 10/31/18 12:22 93 10/31/18 12:00 94 10/31/18 11:42 94 10/31/18 11:41 93 10/31/18 11:29 95 10/31/18 11:25 95 10/31/18 10:40 93 Laboratory Results Abnormal Lab Results 10/31/18 10/31/18 10/31/18 12:15 12:15 12:15 WBC 9.10 RBC 4.71 Hgb 12.9 Hct 39.5 MCV 83.9 MCH 27.4 MCHC 32.7 RDW Std Deviation 46.9 H RDW Coeff of Nathaly 15.1 H Plt Count 192 MPV 9.7 Immature Gran % (Auto) 0.2 Neut % (Auto) 71.4 Lymph % (Auto) 18.1 Dukes % (Auto) 7.6 Eos % (Auto) 2.2 Baso % (Auto) 0.5 Immature Gran # (Auto) 0.02 Neut # (Auto) 6.49 Lymph # (Auto) 1.65 Dukes # (Auto) 0.69 H Eos # (Auto) 0.20 Baso # (Auto) 0.05 PT 10.4 INR 1.0 APTT 27.6 PTT Ratio 1.0 Sodium 139 Potassium 3.7 Chloride 106 Carbon Dioxide 28 Anion Gap 5.0 BUN 18 Creatinine 1.26 H Est Cr Clr Drug Dosing 40.8 Est GFR ( Amer) 48.6 Est GFR (Non-Af Amer) 41.9 BUN/Creatinine Ratio 14.6 Glucose 108 H POC Glucose Calcium 8.8 Magnesium 2.4 Total Bilirubin 0.3 AST 8 L ALT 18 Alkaline Phosphatase 77 CK-MB (CK-2) < 1.0 Troponin I < 0.015 Total Protein 7.2 Albumin 3.7 Globulin 3.5 Albumin/Globulin Ratio 1.1 10/31/18 10/31/18 12:30 16:27 WBC RBC Hgb Hct MCV MCH MCHC RDW Std Deviation RDW Coeff of Nathaly Plt Count MPV Immature Gran % (Auto) Neut % (Auto) Lymph % (Auto) Dukes % (Auto) Eos % (Auto) Baso % (Auto) Immature Gran # (Auto) Neut # (Auto) Lymph # (Auto) Dukes # (Auto) Eos # (Auto) Baso # (Auto) PT INR APTT PTT Ratio Sodium Potassium Chloride Carbon Dioxide Anion Gap BUN Creatinine Est Cr Clr Drug Dosing Est GFR ( Amer) Est GFR (Non-Af Amer) BUN/Creatinine Ratio Glucose POC Glucose 107 H 136 H Calcium Magnesium Total Bilirubin AST ALT Alkaline Phosphatase CK-MB (CK-2) Troponin I Total Protein Albumin Globulin Albumin/Globulin Ratio Diagnostic Findings Chest x-ray obtained at the time admission did not reveal any acute cardiopulmonary findings. Unchanged from prior examination. ECG Additional Comments: Sinus rhythm without acute ST or T-wave changes (1) Chest pain Chest pain type: unspecified Qualified Code(s): R07.9 - Chest pain, unspecified (2) Atrial fibrillation Atrial fibrillation type: unspecified Qualified Code(s): I48.91 - Unspecified atrial fibrillation (3) CAD (coronary artery disease) Coronary Disease-Associated Artery/Lesion type: [place] artery [place] vs. transplanted heart: [place] heart Associated angina: without angina Qualified Code(s): I25.10 - Atherosclerotic heart disease of [place] coronary artery without angina pectoris (4) Hypertension Hypertension type: unspecified Qualified Code(s): I10 - Essential (primary) hypertension
[2018-10-31] MEDS: INSULIN ASPART 100 UNITS/ML 3 ML PEN SC SCH ×2 (17:13→20:05)
[2018-10-31] MEDS: dilTIAZem HCL 120 MG CAPCR PO SCH (20:03)
[2018-10-31] MEDS: APIXABAN 5 MG TABLET PO SCH (20:03)
[2018-10-31] MEDS: CARVEDILOL 12.5 MG TAB PO SCH (20:04)
[2018-10-31] MEDS: FLECAINIDE ACETATE 100 MG TABLET PO SCH (20:04)
[2018-10-31] MEDS: IRBESARTAN 150 MG TAB PO SCH (20:04)
[2018-10-31] MEDS: INSULIN GLARGINE SOLOSTAR 100 UNITS/ML 3 ML PEN SC SCH (20:06)
--- NOTE | 2018-10-31 20:51 | Emergency Department Note ---
Entered by Qian Fisher acting as a scribe for Beni Champagne MD History of Present Illness General Chief complaint: Weakness Stated complaint: WEAKNESS Time Seen by Provider: 10/31/18 11:58 Source: patient Mode of arrival: ambulatory Limitations: no limitations History of Present Illness Provider complaint: Weakness Onset (ago): hour(s) 5 Location: neck and chest Severity: moderate Pain Consistency: + now resolved Maximum Pain Intensity: 0 Associated symptoms: + denies other symptoms and + weakness Patient is a 73 year old female presenting of the ED with weakness beginning a bout x5 hours ago. Patient states that she began to have generalized weakness prior to doing dishes. She notes that afterwards, she felt chest heaviness and right sided neck pain. Pain is moderate in severity and resolved since onset. She notes she took April pepper drops for pain, which had improvement. She denies aspirin use. She shares she was having low BP today during the episode, but has hx of HTN. She shares she was seen in the ED last month for stroke, and has been having more weakness on the left side since. Patient shares she did have a stent placed last year, noting current chest heaviness is similar to episode where stent was placed. Patient lastly shares she is on Plavix. She denies any abd pain, nausea, vomiting, diarrhea, numbness, rashes, or any other complaints or concerns at this time. Home Medications Home Medications Medication Instructions Recorded Confirmed Type apixaban [Eliquis] 5 mg PO BID 10/31/18 10/31/18 History carvedilol 12.5 mg PO BID 10/31/18 10/31/18 History clopidogrel 75 mg PO DAILY 10/31/18 10/31/18 History cyanocobalamin (vitamin B-12) 500 mcg PO PM 10/31/18 10/31/18 History diltiazem HCl 120 mg PO BID 10/31/18 10/31/18 History dulaglutide [Trulicity] 0 mg SUBCUT WK 10/31/18 10/31/18 History flecainide 100 mg PO BID 10/31/18 10/31/18 History furosemide 20 mg PO DIRECTED PRN 10/31/18 10/31/18 History garlic 400 mg PO DAILY 10/31/18 10/31/18 History glipizide 10 mg PO BID 10/31/18 10/31/18 History hydrochlorothiazide 25 mg PO QAM 10/31/18 10/31/18 History irbesartan 150 mg PO BID 10/31/18 10/31/18 History metformin 500 mg PO BIDM 10/31/18 10/31/18 History nitroglycerin 0.4 mg SUBLINGUAL DIRECTED PRN 10/31/18 10/31/18 History potassium chloride 10 meq PO DAILY 10/31/18 10/31/18 History pravastatin 40 mg PO HS 10/31/18 10/31/18 History ranitidine HCl 150 mg PO BID 10/31/18 10/31/18 History Allergies Allergy/AdvReac Type Severity Reaction Status Date / Time acetaminophen Allergy Unknown . Verified 10/31/18 12:40 propoxyphene AdvReac Unknown Nausea Verified 10/31/18 12:40 UNKNOWN ANITBIOTICS Allergy Unknown . Uncoded 10/31/18 12:40 Past Med/Surg History Medical History Hypertension (Chronic) Diabetes (Chronic) Atrial fibrillation with RVR (Chronic) CAD (coronary artery disease) CKD (chronic kidney disease) CVA (cerebral vascular accident) GERD (gastroesophageal reflux disease) Hyperlipidemia Surgical History History of heart artery stent (Acute) History of section (Resolved) History of cataract surgery History of tonsillectomy Family History Mother , age 73 of heart issues. Heart disease Father , age 72 of heart issues the Heart disease Hypertension Other Diabetes Social History Preferred Language: Panamanian Communication Ability: Effective Cupola Tapper Helper Required: No Beliefs That Will Affect Care: Pentecostal Pentecostal Beliefs: no life support Current Living Situation: Spouse Other Information That Helps Us Care for You: No Feels Safe at Home: Yes Safety Concerns: Feels Safe At This Time Smoking Status: Never smoker Do You Dip or Chew Tobacco: No Second Hand Exposure: No Tobacco Cessation Education Requested by Patient: No Hx Alcohol Use: No Hx Substance Use: No Review of Systems See HPI for pertinent positives & negatives. and A total of 10 systems reviewed and were otherwise negative Physical Exam Vital Signs Vital Signs - 24 hr 10/31/18 10:40 10/31/18 11:25 10/31/18 11:29 Temperature 36.7 C Temperature Source Oral Sepsis Recent Fever Within 48 Hours No Sepsis Action Taken by Nursing No Action Required Pulse Rate 68 62 60 Pulse Rate [Left] Pulse Rate from SpO2 Sensor 60 Pulse Rhythm [Left] Pulse Strength [Left] Respiratory Rate 20 16 19 Respiratory Effort / Characteristics Non-Labored Respiratory Depth Normal Respiratory Pattern Blood Pressure 184/76 H 197/86 H Blood Pressure [Left Arm] Blood Pressure [Right Arm] Blood Pressure Mean 112 123 Blood Pressure Mean [Left Arm] Blood Pressure Mean [Right Arm] Blood Pressure Position [Left Arm] Blood Pressure Position [Right Arm] Pulse Oximetry 93 95 95 Oxygen Delivery Method Room Air Room Air 10/31/18 11:41 10/31/18 11:42 10/31/18 12:00 Temperature Temperature Source Sepsis Recent Fever Within 48 Hours Sepsis Action Taken by Nursing Pulse Rate 65 Pulse Rate [Left] 71 Pulse Rate from SpO2 Sensor 63 58 L Pulse Rhythm [Left] Pulse Strength [Left] Respiratory Rate 22 16 15 Respiratory Effort / Characteristics Non-Labored Spontaneous Respiratory Depth Normal Respiratory Pattern Blood Pressure Blood Pressure [Left Arm] Blood Pressure [Right Arm] 197/86 H Blood Pressure Mean Blood Pressure Mean [Left Arm] Blood Pressure Mean [Right Arm] 123 Blood Pressure Position [Left Arm] Blood Pressure Position [Right Arm] Lying Pulse Oximetry 93 94 94 Oxygen Delivery Method Room Air 10/31/18 12:22 10/31/18 12:24 10/31/18 12:30 Temperature Temperature Source Sepsis Recent Fever Within 48 Hours Sepsis Action Taken by Nursing Pulse Rate 60 68 Pulse Rate [Left] 66 Pulse Rate from SpO2 Sensor 61 60 Pulse Rhythm [Left] Pulse Strength [Left] Respiratory Rate 21 18 21 Respiratory Effort / Characteristics Respiratory Depth Respiratory Pattern Blood Pressure 196/75 H Blood Pressure [Left Arm] Blood Pressure [Right Arm] 196/75 H Blood Pressure Mean 115 Blood Pressure Mean [Left Arm] Blood Pressure Mean [Right Arm] 115 Blood Pressure Position [Left Arm] Blood Pressure Position [Right Arm] Pulse Oximetry 93 96 96 Oxygen Delivery Method Room Air 10/31/18 13:00 10/31/18 13:15 10/31/18 13:30 Temperature Temperature Source Sepsis Recent Fever Within 48 Hours Sepsis Action Taken by Nursing Pulse Rate 59 L 62 61 Pulse Rate [Left] Pulse Rate from SpO2 Sensor 59 L 62 62 Pulse Rhythm [Left] Pulse Strength [Left] Respiratory Rate 22 15 29 H Respiratory Effort / Characteristics Respiratory Depth Respiratory Pattern Blood Pressure Blood Pressure [Left Arm] Blood Pressure [Right Arm] Blood Pressure Mean Blood Pressure Mean [Left Arm] Blood Pressure Mean [Right Arm] Blood Pressure Position [Left Arm] Blood Pressure Position [Right Arm] Pulse Oximetry 94 93 95 Oxygen Delivery Method 10/31/18 13:36 10/31/18 13:40 10/31/18 13:45 Temperature Temperature Source Sepsis Recent Fever Within 48 Hours Sepsis Action Taken by Nursing Pulse Rate 70 Pulse Rate [Left] 63 Pulse Rate from SpO2 Sensor 62 Pulse Rhythm [Left] Regular Pulse Strength [Left] Normal Respiratory Rate 20 31 H Respiratory Effort / Characteristics Non-Labored Accessory Muscle Use Respiratory Depth Normal Respiratory Pattern Blood Pressure 190/75 H Blood Pressure [Left Arm] Blood Pressure [Right Arm] 190/75 H Blood Pressure Mean 113 Blood Pressure Mean [Left Arm] Blood Pressure Mean [Right Arm] 113 Blood Pressure Position [Left Arm] Blood Pressure Position [Right Arm] Pulse Oximetry 92 96 Oxygen Delivery Method Room Air 10/31/18 14:00 10/31/18 14:24 10/31/18 15:16 Temperature 36.8 C 36.8 C Temperature Source Oral Oral Sepsis Recent Fever Within 48 Hours Sepsis Action Taken by Nursing Pulse Rate 58 L Pulse Rate [Left] 65 Pulse Rate from SpO2 Sensor 59 L Pulse Rhythm [Left] Regular Pulse Strength [Left] Normal Respiratory Rate 18 20 20 Respiratory Effort / Characteristics Non-Labored Respiratory Depth Normal Respiratory Pattern Regular Blood Pressure Blood Pressure [Left Arm] 170/72 H Blood Pressure [Right Arm] 198/72 H Blood Pressure Mean Blood Pressure Mean [Left Arm] 104 Blood Pressure Mean [Right Arm] 114 Blood Pressure Position [Left Arm] Lying Blood Pressure Position [Right Arm] Sitting Pulse Oximetry 93 95 95 Oxygen Delivery Method Room Air Room Air 10/31/18 19:01 Temperature 36.7 C Temperature Source Oral Sepsis Recent Fever Within 48 Hours Sepsis Action Taken by Nursing Pulse Rate Pulse Rate [Left] 67 Pulse Rate from SpO2 Sensor Pulse Rhythm [Left] Pulse Strength [Left] Respiratory Rate 18 Respiratory Effort / Characteristics Respiratory Depth Respiratory Pattern Blood Pressure Blood Pressure [Left Arm] 178/69 H Blood Pressure [Right Arm] Blood Pressure Mean Blood Pressure Mean [Left Arm] 105 Blood Pressure Mean [Right Arm] Blood Pressure Position [Left Arm] Sitting Blood Pressure Position [Right Arm] Pulse Oximetry 92 Oxygen Delivery Method Room Air GENERAL: Awake, alert, well-appearing, in no acute distress HENT: Normocephalic, atraumatic. Oropharynx unremarkable. EYES: Normal conjunctiva. Sclera non-icteric. NECK: Supple. No nuchal rigidity. FROM. No JVD. RESPIRATORY: Clear to auscultation. CARDIAC: Regular rate, normal rhythm. Extremities warm and well perfused. Pulses equal. ABDOMEN: Soft, non-distended. No tenderness to palpation. No rebound or guarding. No masses. RECTAL: Deferred. MUSCULOSKELETAL: Chest examination reveals no tenderness. The back is symmetrical on inspection without obvious abnormality. There is no CVA tenderness to palpation. No joint edema. LOWER EXTREMITIES: Calves are equal size bilaterally and non-tender. No edema. No discoloration. NEURO: Normal sensorium. No sensory or motor deficits noted. SKIN: No rash or jaundice noted. Course 1200: Patient was evaluated in room C02B. A full history and physical examination were obtained. 1255: Discussed case with Dr. Lozano, who accepts patient for admission. Administered Medications Apixaban (Eliquis) 5 mg PO BID PEDRO PABLO Stop: 11/30/18 20:59 Last Admin: 10/31/18 20:03 Dose: 5 mg Documented by: [id number] Carvedilol (Coreg) 12.5 mg PO BID PEDRO PABLO Stop: 11/30/18 20:59 Last Admin: 10/31/18 20:04 Dose: 12.5 mg Documented by: [id number] Diltiazem HCl (Cardizem Cd) 120 mg PO BID PEDRO PABLO Stop: 11/30/18 20:59 Last Admin: 10/31/18 20:03 Dose: 120 mg Documented by: [id number] Flecainide Acetate (Tambocor) 100 mg PO BID PEDRO PABLO Stop: 11/30/18 20:59 Last Admin: 10/31/18 20:04 Dose: 100 mg Documented by: [id number] Insulin Aspart (Novolog Flexpen) 0 units SC ACHS PEDRO PABLO Stop: 11/30/18 16:29 Last Admin: 10/31/18 20:05 Dose: 1 units Documented by: [id number] Cosigned by: [id number] Admin: 10/31/18 17:13 Dose: 3 units Documented by: [id number] Cosigned by: [id number] Insulin Glargine (Lantus Solostar Pen) 7 units SC BID PEDRO PABLO Stop: 11/30/18 20:59 Last Admin: 10/31/18 20:06 Dose: 7 units Documented by: [id number] Cosigned by: [id number] Irbesartan (Avapro) 150 mg PO BID PEDRO PABLO Stop: 11/30/18 20:59 Last Admin: 10/31/18 20:04 Dose: 150 mg Documented by: [id number] Miscellaneous (Order Awaiting Action) 1 ea N/A QS PEDRO PABLO Stop: 11/30/18 15:59 Last Admin: 10/31/18 15:00 Dose: Not Given Documented by: [id number] Pravastatin Sodium (Pravachol) 40 mg PO HS PEDRO PABLO Stop: 11/30/18 20:59 Last Admin: 10/31/18 20:05 Dose: 40 mg Documented by: [id number] Ranitidine HCl (Zantac) 150 mg PO BID PEDRO PABLO Stop: 11/30/18 20:59 Last Admin: 10/31/18 20:04 Dose: 150 mg Documented by: [id number] Discontinued Medications Aspirin (Aspirin) 324 mg PO NOW STA Stop: 10/31/18 12:11 Last Admin: 10/31/18 12:23 Dose: 324 mg Documented by: [id number] Hydralazine HCl (Hydralazine Hcl) 5 mg IV NOW ONE Stop: 10/31/18 14:35 Last Admin: 10/31/18 14:45 Dose: 5 mg Documented by: [id number] Nitroglycerin (Nitro-Bid 2%) 1 inch EXT NOW STA Stop: 10/31/18 12:13 Last Admin: 10/31/18 12:23 Dose: 1 inch Documented by: [id number] Medical Decision Making Differential Diagnosis Differential diagnosis: Etiologies such as cardiac ischemia, aortic dissection, pulmonary embolism, pneumonia, pneumothorax, musculoskeletal, infections, pericarditis, myocarditis, esophageal rupture, gastrointestinal, as well as others were entertained. Medical Records Attestation: I reviewed the patient's medical records. Home Medications Current Medication List: was personally reviewed by me Laboratory Data Attestation: I reviewed the patient's lab results. Result diagrams: 10/31/18 12:15 10/31/18 12:15 Lab Results 10/31/18 10/31/18 10/31/18 Range/Units 12:15 12:15 12:15 WBC 9.10 (4.8-10.8) K/uL RBC 4.71 (4.2-5.4) M/uL Hgb 12.9 (12.0-16.0) g/dL Hct 39.5 (37-47) % MCV 83.9 (80-100) fL MCH 27.4 (25-34) pg MCHC 32.7 (32-36) g/dL RDW Std Deviation 46.9 H (36.4-46.3) fL RDW Coeff of Nathaly 15.1 H (11.5-14.5) % Plt Count 192 (130-400) K/uL MPV 9.7 (7.4-10.4) fL Immature Gran % (Auto) 0.2 % Neut % (Auto) 71.4 % Lymph % (Auto) 18.1 % Beadle % (Auto) 7.6 % Eos % (Auto) 2.2 % Baso % (Auto) 0.5 % Immature Gran # (Auto) 0.02 (0.00-0.02) K/uL Neut # (Auto) 6.49 (1.4-6.5) K/uL Lymph # (Auto) 1.65 (1.2-3.4) K/uL Beadle # (Auto) 0.69 H (0.11-0.59) K/uL Eos # (Auto) 0.20 (0-0.5) K/uL Baso # (Auto) 0.05 (0-0.2) K/uL PT 10.4 (9.0-12.0) Seconds INR 1.0 (0.9-1.1) APTT 27.6 (21.0-31.0) Seconds PTT Ratio 1.0 Sodium 139 (136-145) mmol/L Potassium 3.7 (3.5-5.1) mmol/L Chloride 106 (98-107) mmol/L Carbon Dioxide 28 (21-32) mmol/L Anion Gap 5.0 (3-11) BUN 18 (7-18) mg/dl Creatinine 1.26 H (0.6-1.2) mg/dl Est Cr Clr Drug Dosing 40.8 ml/min Est GFR ( Amer) 48.6 Est GFR (Non-Af Amer) 41.9 BUN/Creatinine Ratio 14.6 (10-20) Glucose 108 H (70-99) mg/dl POC Glucose (70-99) Calcium 8.8 (8.5-10.1) mg/dl Magnesium 2.4 (1.8-2.4) mg/dl Total Bilirubin 0.3 (0.2-1) mg/dl AST 8 L (15-37) U/L ALT 18 (12-78) U/L Alkaline Phosphatase 77 (45-117) U/L CK-MB (CK-2) < 1.0 (0.5-3.6) ng/ml Troponin I < 0.015 (0-0.045) ng/ml Total Protein 7.2 (6.4-8.2) gm/dl Albumin 3.7 (3.4-5.0) gm/dl Globulin 3.5 (2.5-4.0) gm/dl Albumin/Globulin Ratio 1.1 (0.9-2) 10/31/18 10/31/18 10/31/18 Range/Units 12:30 16:27 19:23 WBC (4.8-10.8) K/uL RBC (4.2-5.4) M/uL Hgb (12.0-16.0) g/dL Hct (37-47) % MCV (80-100) fL MCH (25-34) pg MCHC (32-36) g/dL RDW Std Deviation (36.4-46.3) fL RDW Coeff of Nathaly (11.5-14.5) % Plt Count (130-400) K/uL MPV (7.4-10.4) fL Immature Gran % (Auto) % Neut % (Auto) % Lymph % (Auto) % Beadle % (Auto) % Eos % (Auto) % Baso % (Auto) % Immature Gran # (Auto) (0.00-0.02) K/uL Neut # (Auto) (1.4-6.5) K/uL Lymph # (Auto) (1.2-3.4) K/uL Beadle # (Auto) (0.11-0.59) K/uL Eos # (Auto) (0-0.5) K/uL Baso # (Auto) (0-0.2) K/uL PT (9.0-12.0) Seconds INR (0.9-1.1) APTT (21.0-31.0) Seconds PTT Ratio Sodium (136-145) mmol/L Potassium (3.5-5.1) mmol/L Chloride (98-107) mmol/L Carbon Dioxide (21-32) mmol/L Anion Gap (3-11) BUN (7-18) mg/dl Creatinine (0.6-1.2) mg/dl Est Cr Clr Drug Dosing ml/min Est GFR ( Amer) Est GFR (Non-Af Amer) BUN/Creatinine Ratio (10-20) Glucose (70-99) mg/dl POC Glucose 107 H 136 H (70-99) Calcium (8.5-10.1) mg/dl Magnesium (1.8-2.4) mg/dl Total Bilirubin (0.2-1) mg/dl AST (15-37) U/L ALT (12-78) U/L Alkaline Phosphatase (45-117) U/L CK-MB (CK-2) (0.5-3.6) ng/ml Troponin I < 0.015 (0-0.045) ng/ml Total Protein (6.4-8.2) gm/dl Albumin (3.4-5.0) gm/dl Globulin (2.5-4.0) gm/dl Albumin/Globulin Ratio (0.9-2) 10/31/18 Range/Units 20:02 WBC (4.8-10.8) K/uL RBC (4.2-5.4) M/uL Hgb (12.0-16.0) g/dL Hct (37-47) % MCV (80-100) fL MCH (25-34) pg MCHC (32-36) g/dL RDW Std Deviation (36.4-46.3) fL RDW Coeff of Nathaly (11.5-14.5) % Plt Count (130-400) K/uL MPV (7.4-10.4) fL Immature Gran % (Auto) % Neut % (Auto) % Lymph % (Auto) % Beadle % (Auto) % Eos % (Auto) % Baso % (Auto) % Immature Gran # (Auto) (0.00-0.02) K/uL Neut # (Auto) (1.4-6.5) K/uL Lymph # (Auto) (1.2-3.4) K/uL Beadle # (Auto) (0.11-0.59) K/uL Eos # (Auto) (0-0.5) K/uL Baso # (Auto) (0-0.2) K/uL PT (9.0-12.0) Seconds INR (0.9-1.1) APTT (21.0-31.0) Seconds PTT Ratio Sodium (136-145) mmol/L Potassium (3.5-5.1) mmol/L Chloride (98-107) mmol/L Carbon Dioxide (21-32) mmol/L Anion Gap (3-11) BUN (7-18) mg/dl Creatinine (0.6-1.2) mg/dl Est Cr Clr Drug Dosing ml/min Est GFR ( Amer) Est GFR (Non-Af Amer) BUN/Creatinine Ratio (10-20) Glucose (70-99) mg/dl POC Glucose 155 H (70-99) Calcium (8.5-10.1) mg/dl Magnesium (1.8-2.4) mg/dl Total Bilirubin (0.2-1) mg/dl AST (15-37) U/L ALT (12-78) U/L Alkaline Phosphatase (45-117) U/L CK-MB (CK-2) (0.5-3.6) ng/ml Troponin I (0-0.045) ng/ml Total Protein (6.4-8.2) gm/dl Albumin (3.4-5.0) gm/dl Globulin (2.5-4.0) gm/dl Albumin/Globulin Ratio (0.9-2) Imaging Data Radiologist's Impression: XR chest 1V portable HISTORY: Atypical chest pain COMPARISON: Chest 10/08/2018. FINDINGS: No pneumothorax. No pleural effusions. The heart remains enlarged. There are bibasilar linear densities which are not significantly changed. No new focal lung consolidations. There is mild central pulmonary vascular congestion without overt edema. IMPRESSION: 1. No significant change compared the prior study. 2. Bibasilar linear densities are nonspecific but favor scarring or atelectasis 3. No change in the cardiomegaly and mild congestive change. Electronically signed by: Epifanio Acuña M.D. 10/31/2018 11:45 AM ECG Data Attestation: I personally reviewed and interpreted this ECG as follows: Indication: weakness Rate (beats per minute): 58 Rhythm: sinus bradycardia Findings: + other (Old inferior infarct, Old anterior Infarct, ); no ST depression and no ST elevation Blood Pressure Blood Pressure Findings: Elevated blood pressure Blood Pressure Disposition: further management by hospitalist SANDRINE Narrative Dry this is a 73-year-old female who presents emergency department complaining of chest pressure that she relates is similar to when she previously had a stent placed in her heart. Patient is currently pain-free has a normal EKG as well as CK-MB and troponin fractions. Her blood pressure was found to be elevated. I did discuss the case with the hospitalist service who agreed to admit the patient. Patient was given Nitropaste here in the emergency department. Patient and family were in agreement with the treatment plan. Impression & Plan Chest pain Discharge Plan Visit Data *Final* Discharge Date/Time: 10/31/18 14:18 Chief Complaint: Weakness Stated Complaint: WEAKNESS ED Provider: Beni Champagne Discharge Problem: Chest pain Patient Disposition: Admitted As Inpatient Discharge Instructions Interventions: ED Discharge Assessment Last Done: 10/31/18 14:18 Discharge Problem: Chest pain Qualifiers: Chest pain type: unspecified Qualified Code(s): R07.9 - Chest pain, unspecified The scribe's documentation has been prepared under my direction and personally reviewed by me in its entirety. I confirm that the note above accurately reflects all work, treatment, procedures, and medical decision making performed by me.
[2018-10-31] MEDS ORDERED: PRAVASTATIN SOD 40 MG TAB PO SCH (21:00)
[2018-11-01 01:27] LABS: Basophils # (auto) 0.05 K/uL (0-0.2); Basophils % (auto) 0.5 %; Eosinophils % (auto) 3.1 %; Hematocrit (blood only) 37.2 % (37-47); Hemoglobin 12.2 g/dL (12.0-16.0); Immature Granulocytes # (auto) 0.02 K/uL (0.00-0.02); Immature Granulocytes % (auto) 0.2 %; Lymphocytes # (auto) 2.33 K/uL (1.2-3.4); Lymphocytes % (auto) 23.7 %; Mean Corpuscular Hgb Conc 32.8 g/dL (32-36); Mean Corpuscular Volume 83.4 fL (80-100); Mean Platelet Volume 9.7 fL (7.4-10.4); Monocytes % (auto) 8.1 %; Neutrophils # (auto) 6.33 K/uL (1.4-6.5); Neutrophils % (auto) 64.4 %; Platelet Count 184 K/uL (130-400); RDW Coefficient of Variation 15.2 % (11.5-14.5); RDW Standard Deviation 46.8 fL (36.4-46.3); Red Blood Count 4.46 M/uL (4.2-5.4); White Blood Count 9.83 K/uL (4.8-10.8)
[2018-11-01 01:43] LABS: BUN Creatinine Ratio 19.6 (10-20); Blood Urea Nitrogen 25 mg/dl (7-18); Calcium 8.4 mg/dl (8.5-10.1); Carbon Dioxide 27 mmol/L (21-32); Chloride 107 mmol/L (98-107); Creatinine Clr Calc Pharmacy 40.1 ml/min; Est GFR (African American) 47.7; Est GFR (Non-African American) 41.1; Glucose 148 mg/dl (70-99); Potassium 3.8 mmol/L (3.5-5.1); Sodium 140 mmol/L (136-145)
[2018-11-01 01:47] LABS: Troponin I < 0.015 ng/ml (0-0.045)
[2018-11-01 06:48] VITALS: TEMP 97.5
[2018-11-01] MEDS: CARVEDILOL 12.5 MG TAB PO SCH (07:58)
[2018-11-01] MEDS: dilTIAZem HCL 120 MG CAPCR PO SCH (07:59)
[2018-11-01] MEDS: APIXABAN 5 MG TABLET PO SCH (07:59)
[2018-11-01] MEDS: FLECAINIDE ACETATE 100 MG TABLET PO SCH (07:59)
[2018-11-01] MEDS: IRBESARTAN 150 MG TAB PO SCH (07:59)
[2018-11-01] MEDS: INSULIN ASPART 100 UNITS/ML 3 ML PEN SC SCH ×2 (08:00→12:32)
[2018-11-01] MEDS: INSULIN GLARGINE SOLOSTAR 100 UNITS/ML 3 ML PEN SC SCH (08:00)
[2018-11-01] MEDS ORDERED: SODIUM CHLORIDE 0.9% 500 ML IV SCH (08:45)
[2018-11-01] MEDS ORDERED: POTASSIUM CHLORIDE 10 MEQ TABCR PO SCH (09:00)
[2018-11-01] MEDS ORDERED: CLOPIDOGREL BISULFATE 75 MG TAB PO SCH (09:00)
[2018-11-01] MEDS ORDERED: hydroCHLOROthiazide 25 MG TAB PO SCH (09:00)
[2018-11-01] MEDS ORDERED: OPTIRAY 320 125ml IV PRN (09:40)
--- NOTE | 2018-11-01 09:49 | CT Scan Report ---
Study: CT angiogram of the renal arteries HISTORY: Hypertension. Abnormal renal arterial Doppler FINDINGS: Considerable atherosclerotic change of the abdominal aorta. No evidence for aneurysm. Atherosclerotic change of the abdominal and mesenteric arterial vasculature. 50% narrowing of the mid superior mesenteric artery. 70% narrowing proximal right renal artery at its origin. 30% narrowing left renal artery. IMPRESSION: 1. 70% narrowing proximal right renal artery. 2. 30% narrowing by several left renal artery.. 3. 50% narrowing mid superior mesenteric artery. 4. Significant atherosclerotic change abdominal aorta. Electronically signed by: Nehemias Alfaro M.D. 11/01/2018 9:47 AM
--- NOTE | 2018-11-01 11:21 | Cardiology Progress Note ---
Date of Service November 01, 2018 Assessment & Plan (1) Renal artery atherosclerosis: She has quite severe hypertension and there was a suggestion of renal artery stenosis on ultrasound. Her CT angiogram today suggest a 70% right renal artery stenosis and a less on the left. This is borderline I believe for causing hypertension, I will need to review this with Dr. Lee. (2) Chest pain: Her chest pain on presentation was quite atypical, she has not had symptoms suggesting angina and her enzymes were negative. I would not pursue further. (3) Atrial fibrillation: She has a history of atrial fibrillation but on her current medical regimen her rhythm is very well controlled. She should remain on anticoagulation however. (4) Hypertension: She has quite severe hypertension and will need treatment. I do not know whether her renal artery stenosis is affecting it, that could be addressed although it often does not improve blood pressure very much. I will leave that up to the primary service and Dr. Lee but would go up on her antihypertensives as we discussed. Subjective She is feeling relatively well today and has not been having chest discomfort although she is not been terribly active. No other cardiovascular complaints. Physical Exam Physical Exam: Constitutional: Alert, cooperative and in no distress. Pulmonary: Clear to auscultation bilaterally. Cardiac: Regular rhythm with a grade 2/6 crescendo decrescendo murmur at the base, no gallop or rub. Abdomen: Soft, nontender with normal bowel sounds. Extremities: No edema. Skin: No rash, ecchymoses or petechiae. Results & Data Vital Signs (Past 12 Hours) Vital Signs Temp Pulse Resp BP Pulse Ox 11/01/18 06:47 36.4 C L 63 18 195/73 H 95 11/01/18 03:55 36.6 C 61 18 163/78 H 92 Diagnostic Findings Telemetry: Sinus rhythm in the 60s. No atrial fibrillation. Renal angiogram this morning: Reported to have a 70% right renal artery stenosis. (1) Chest pain Chest pain type: unspecified Qualified Code(s): R07.9 - Chest pain, unspecified (2) Atrial fibrillation Atrial fibrillation type: unspecified Qualified Code(s): I48.91 - Unspecified atrial fibrillation (3) Hypertension Hypertension type: unspecified Qualified Code(s): I10 - Essential (primary) hypertension
[2018-11-01] MEDS ORDERED: HydrALAZINE 10 MG TAB PO SCH (13:00)
[2018-11-01 15:34] VITALS: PULSE 60; O2SAT 91
[2018-11-01 17:21] VITALS: BP 198/72
--- OUTSIDE RECORDS SUMMARY | 2018-11-06 16:25 | External Medical Summary | Continuity of Care Document ---
:1945 Author Name Newton Evans, Provider Address Unavailable Unavailable , Care Team Providers Name Role Phone Marc Keith PA-C Unavailable [email or web address] Abbe Evans Unavailable [email or web address] ABBE Evans, Bacilio Unavailable Unavailable PATITSAS, J Unavailable Unavailable O, K Unavailable Unavailable Unavailable Unavailable Unavailable Problems Type 2 diabetes mellitus (250.00) (E11.9) Acute ischemic stroke (434.91) (I63.9) CKD (chronic kidney disease), stage III (585.3) (N18.3) Carotid artery stenosis, asymptomatic, unspecified lat erality (433.10) (I65.29) Hypercholesterolemia (272.0) (E78.00) Renal artery stenosis (440.1) (I70.1) Hypertension (401.9) (I10) Paroxysmal atrial fibrillation (427.31) (I48.0) Mitral regurgitation (424.0) (I34.0) CAD (coronary artery disease) (414.00) (I25.10) Aortic valve sclerosis (424.1) (I35.8) Acid reflux disease (530.81) (K21.9) Hypokalemia (276.8) (E87.6) S/P coronary artery stent placement (V45.82) (Z95.5) Cataract (366.9) (H26.9) Obesity (278.00) (E66.9) Allergies and Adverse Reactions Darvon CAPS (Allergy) Tylenol TABS (Allergy) Medications Probiotic Oral Capsule; TAKE 1 CAPSULE Daily Refills: 0 Trulicity 0.75 MG/0.5ML Subcutaneous Letty ution Pen-injector; INJECT 0.75 MG SUBQ ONCE WEEKLY Cristina Rhoades Start: 01-Oct-2018 Quantity: 1 4 x 0.5 ML Pen Refills: 2 hydroCHLOROthiazide 25 MG Oral Tablet; TAKE 1 TABLET DAILY. Start: 11-Oct-2018 Refills: 0 Plavix 75 MG Oral Tablet; One tablet daily Start: 11-Oct-2018 Refills: 0 Furosemide 20 MG Oral Tablet; ONE TABLET IN THE AM NEEDED Start: 11-Oct-2018 Refills: 0 Carvedilol 12.5 MG Oral Tablet; TAKE 1 TABLET TWICE DAILY. Start: 11-Oct-2018 Quantity: 30 Refills: 5 hydrALAZINE HCl - 10 MG Oral Tablet; TAKE 1 TABLET EVERY 6 H OURS DAILY. Start: 02-Nov-2018 Refills: 0 Eliquis 5 MG Oral Tablet; TAKE ONE TABLET BY MOUTH TWI CE DAILY RADHA Keith Start: 26-Jun-2015 Quantity: 60 Refills: 11 Pravastatin Sodium 40 MG Oral Tablet; TAKE 1 TABLET AT BEDTIME. Cristina Rhoades Start: 01-Jul-2015 Refills: 0 90 Tablet Bottle Flecainide Acetate 100 MG Oral Tablet; TAKE ONE TABLET BY MOUTH TWICE DAILY RADHA Keith Start: 27-Jun-2018 Quantity: 180 Refills: 3 Garlic 400 MG Oral Tablet; 1Tablets Daily Start: 06-Jul-2016 Refills: 0 dilTIAZem HCl ER Coated Beads 120 MG Ora l Capsule Extended Release 24 Hour; one twice daily Cristina Rhoades Start: 06-Jul-2017 Refills: 0 Nitroglycerin 0.4 MG Sublingual Tablet S ublingual; DISSOLVE 1 TABLET UNDER THE TONGUE EVERY 5 MINUTES UP TO 3 DOSES NEEDED FOR CHEST PAIN Start: 27-Sep-2017 Quantity: 25 Refills: 0 Potassium Chloride Kelly ER 10 MEQ Oral T ablet Extended Release; TAKE ONE TABLET BY MOUTH EVERY DAY Cristina Rhoades Start: 05-Apr-2018 Quantity: 90 Refills: 3 raNITIdine HCl - 150 MG Oral Tablet; Take 1 tablet twi ce daily Cristina Rhoades Start: 28-Sep-2018 Quantity: 60 Refills: 0 Vitamin B-12 500 MCG Oral Tablet; TAKE 1 TABLET DAILY. Start: 12-Oct-2018 Refills: 0 metFORMIN HCl - 500 MG Oral Tablet; 500 mg BID with meals Start: 12-Oct-2018 Refills: 0 Irbesartan 150 MG Oral Tablet; TAKE 1 TABLET TWICE TATIANA Cristina Abad Start: 09-Feb-2018 Refills: 0 glipiZIDE 10 MG Oral Tablet; TAKE ONE TABLET BY MOUTH TWICE DAILY Cristina Rhoades Start: 08-Jun-2018 Quantity: 180 Refills: 1 Procedures In-House EKG ([facility]) Total Component Date: 20-Oct-2018 CT Abd/Pelvis W+WO IV Contr (No Oral) Date: 20-Oct-2018 Immunizations Immunizations not documented Family History Unknown Family Member Family history of Heart Disease (V17.49) Status: Active Comments: Family History Social History - Smoking Status Never smoker Plan of Treatment Planned Encounters Appointment; Ovidio Samayoa M.D. Start: 02-Mar-2019 10:0 0 Request Planned Observations Planned Goals not documented Results CT Head w/o Contrast Laboratory: [facility] Diagnostic (Pending) Imaging [address] [place] [address] 08-Oct-2018 14:55 CT HEAD WITHOUT CONTRAST [facility], [place] [phone] CT Scan Report Patient: IRVIN COOPER Admit Date: 10/08/18 MR#: [id number] Address1: [address] [place] [address] Acct ID:[id number] Address2: [place] [address] Date: 1945 [facility] Zip: [place] [address] Age: 73 Location: ED Sex: F Room/Bed: Att Phy: Diagnosis: LACK OF ENERGY,NAUSEA Yesenia Phy: Cinthia Rhoades MD Service Da te: 10/08/18 Fam Phy: Interpreting Phy: Lamin Nguyen her Admit Phy: Ordering Phy: Alban Baker M.D. cc: CT head/brain wo con CLINICAL HISTORY: 73 years-old Female with weakness. Acute weakness TECHNIQUE: Multiple axial CT images of the head were obtained without contrast. A dose lowering technique was utilized adhering to the principles of ALARA. CT DOSE: 537.48 mGy.cm COMPARISON: None. FINDINGS: No acute intracranial hemorrhage, midline shift, intracranial mass, hydrocephalus, territorial ischemia or abnormal extra-axial collection. Ill-defined hypodensities about the white matter are suggestive of chronic microvascular ischemic changes. Multifocal hypodensity about the periventricular left frontal lobe is suggestive of encephalomalacia from remote infarct. Carotid calcifications are noted at the level of the skull base. 1.0 x 2.0 cm hypodensity of the right central mariana, image 8 series 2 with ill-defined margins. The calvarium is intact. The paranasal sinuses, mastoid air cells, and middle ear cavities are clear. IMPRESSION: 1. Ill-defined 1.1 x 2.0 cm hypodensity of the right central mariana suggests age-indeterminate infarction. Correlate clinically. 2. No acute intracranial hemorrhage, midline shift or territorial infarct. 3. Background mild chronic microvascular ischemic changes. The above report was generated using voice recognition software. It may contain grammatical, syntaxor spelling errors. Electronically signed by: Khari Ramires M.D. 10/08/2018 3:05 PM Dictated: 10/08/18 1455 Transcribed: 10/08/18 1501 X-Ray Chest 1 View Laboratory: [facility] Diagnostic Portable (Pending) Imaging [address] [place] [address] 08-Oct-2018 15:12 X-Ray Chest 1 VW Portable (CXR1P) [place], [place] [phone] XRay Report Patient: IRVIN COOPER Admit Date: 10/08/18 MR#: [id number] Address1: [address] [place] [address] Acct ID:[id number] Address2: [place] [address] Date: 1945 [facility] Zip: [place] [address] Age: 73 Location: ED Sex: F Room/Bed: Att Phy: Diagnosis: LACK OF ENERGY,NAUSEA Yesenia Phy: Cinthia Rhoades MD Service Da te: 10/08/18 Fam Phy: Interpreting Phy: Mendez starks MD Admit Phy: Ordering Phy: Alban Baker M.D. cc: XR chest 1V portable CLINICAL HISTORY: weakness COMPARISON STUDY: Chest radiograph September 19, 2017. FINDINGS: Patient is mildly rotated. There is no pneumothorax or pleural effusion. Linear bibasilaropacities favor atelectasis. There is no consolidation to suggest pneumonia. Moderate cardiomegaly is unchanged. There is no evidence for pulmonary edema. IMPRESSION: 1. No acute cardiopulmonary findings. 2. Linear bibasilar opacities suggestive of atelectasis. Electronically signed by: Mendez Ruiz M.D. 10/08/2018 3:13 PM Dictated: 10/08/18 1512 Transcribed: 10/08/18 1512 MRI Brain W+WO Contrast Laboratory: [facility] Diagnostic (Pending) Imaging [address] [facility] 08-Oct-2018 17:15 MRI BRAIN W/ AND W/O CONTRAST [facility], [place] [phone] Magnetic Resonance Report Patient: IRVIN COOPER Admit Date: 10/08/18 MR#: [id number] Address1: [address] [place] [address] Acct ID:[id number] Address2: [facility] Date: 1945 [facility] Zip: [place] [address] Age: 73 Location: ED Sex: F Room/Bed: Att Phy: Diagnosis: LACK OF ENERGY,NAUSEA Yesenia Phy: Cinthia Rhoades MD Service Da te: 10/08/18 Fam Phy: Interpreting Phy: Mendez starks MD Admit Phy: Ordering Phy: Alban Baker M.D. cc: MRI OF THE BRAIN WITHOUT AND WITH IV CONTRAST CLINICAL HISTORY: weakness, Possible mariana lesion on ct COMPARISON STUDY: Head CT performed earlier today. TECHNIQUE: Utilizing a 1.5 Pamela magnet and dedicated coil, multiplanar, multiecho imaging of the brain was performed pre and postcontrast administration. IV administration of 8.5 mL of Gadavist contrast was uneventful. FINDINGS: Note is made of a 2.1 x 1.3 cm focus of restricted diffusion within the right aspect of the mariana which corresponds to the finding on head CT. This reflects a acute to subacute infarct. Note is made of a 6 mm nodular enhancing focus along the right into aspect of the falx shown on coronalT1 postcontrast image of . The ventricular system is normal. The basilar cisterns are patent. There are no extra-axial collections. Flow-voids for the major intracranial vessels are present. White matter T2 hyperintense foci reflect small vessel disease. Calvarial signal is maintained. There is mild sinus mucosal thickening. IMPRESSION: 1. 2.1 x 1.3 cm focus of restricted diffusion within the right aspect of mariana which reflects an acute to subacute infarct and corresponds to the finding on head CT. No hemorrhage. No significant mass effect. 2. 6 mm nodular enhancing focus along the right aspect of the falx which may reflect a tiny meningioma. Electronically signed by: Mendez Ruiz M.D. 10/08/2018 5:22 PM Dictated: 10/08/181714 Transcribed: 10/08/181714 Ultrasound, Carotid Laboratory: [facility] Diagnostic Doppler Neck Artery Imaging [address] [facility] (Pending) [facility] 09-Oct-2018 14:56 US CAROTID DOPPLER NECK ARTER [facility], [place] [phone] Ultrasound Report Patient: IRVIN COOPER Admit Date: 10/08/18 MR#: [id number] Address1: [address] [place] [address] Acct ID:[id number] Address2: [place] [address] Date: 1945 [facility] [address] Age: 73 Location: Sex: F Room/Bed: [facility] Att Phy: Rj Moreno MD Diagnosis: CV A Yesenia Phy: Cinthia Rhoades MD Service Da te: 10/09/18 Fam Phy: Interpreting Phy: Lamin Nguyen her Admit Phy: Qian Monaco DO Ordering Phy: Rj Moreno MD cc: US carotid doppler BI CLINICAL HISTORY: 73 years-old Female with right sided stroke. Acute strokelike symptoms COMPARISON: Brain MRI 10/08/2018 TECHNIQUE: Multiple real time sonographic images of the carotid bifurcations were obtained assessing boland scale, color Doppler and spectral wave form appearance FINDINGS: RIGHT CAROTID: The peak systolic velocity within the right ICA is measured at 134 cm/sec. The enddiastolic velocity measured 37 cm/sec. The ICA to CCA ratio measured 2.6 which correlates with a stenosis of 50-69%. Peak systolic velocity within the right common carotid arteries measured at 51 cm/s with end-diastolic velocity of 11 cm/s. Moderate mixed plaque formation of the right carotid bulb and proximal right ICA. LEFT CAROTID: The peak systolic velocity within the left ICA measures 83 cm/sec. The end diastolic velocity measured 24 cm/sec. The ICA to CCA ratio measured 1.1 which correlates with a stenosis of 0-50%. Moderate mixed plaque formation of the left carotid bulb and proximal left ICA. There is normal antegrade vertebral flow bilaterally. IMPRESSION: 1. Mixed plaque formation of the bilateral carotid bulbs and proximal ICAs results in 50-69% stenosis on the right and less than 50% stenosis on the left. 2. Normal antegrade vertebral flow bilaterally. The above report was generated using voice recognition software. It may contain grammatical, syntaxor spelling errors. Electronically signed by: Khari Ramires M.D. 10/09/2018 2:58 PM Dictated: 10/09/18 1456 Transcribed: 10/09/18 145 Ultrasound Duplex Renal Laboratory: [facility] Diagnostic Artery (Pending) Imaging [address] [facility] 10-Oct-2018 14:07 US Duplex Renal Artery [place], [place] [phone] Ultrasound Report Patient: IRVIN COOPER Admit Date: 10/08/18 MR#: [id number] Address1: [address] [place] [address] Acct ID:[id number] Address2: [address] Date: 1945 [facility] Zip: [place] [address] Age: 73 Location: Sex: F Room/Bed: [facility] Att Phy: Rj Moreno MD Diagnosis: CV A Yesenia Phy: Cinthia Rhoades MD Service Da te: 10/10/18 Fam Phy: Interpreting Phy: Lamin Nguyen her Admit Phy: Qian Monaco DO Ordering Phy: Rj Moreno MD cc: US duplex renal artery HISTORY: 73 years-old Female uncontrolled HTN;eval SEMAJ acute hypertension with concern for renal arterial stenosis COMPARISON: None available TECHNIQUE: Multiple real-time sonographic images of the bilateral kidney vascular structures were obtained assessing grayscale appearance, color and spectral flow FINDINGS: The aorta demonstrates peak systolic velocity 108 cm/s with normal plug flow. Right kidney measures 11.7 cm in length. Patent renal vein. Patent arcuate branches. Proximal rightrenal artery demonstrates peak systolic velocity 182 cm/s with resistive index of 0.86. 4 mm nonobstructing calculus of the interpolar right kidney. No hydronephrosis or suspicious mass lesionsabout the right kidney identified. Left kidney measures 10.9 cm in length. Patent left renal vein. Patent arterial branches. Peak systolic velocity 138 cm/s about the mid aspect of the left renal artery with resistive index of 0.86. No left-sided renal calculi or hydronephrosis identified. IMPRESSION: 1. Elevated peak systolic velocity of the proximal right renal artery is suggestive of renal arterial stenosis. 2. 4 mm nonobstructing calculus of the interpolar right kidney. The above report was generated using voice recognition software. It may contain grammatical, syntaxor spelling errors. Electronically signed by: Khari Ramires M.D. 10/10/2018 2:17 PM Dictated: 10/10/18 1407 Transcribed: 10/10/18 1407 In-House EKG ([facility]) Laboratory: [facility] Total Component (Pending) 20-Oct-2018 9:01 In-House EKG Total Component [facility] Test Date: [id number] Name: IRVIN COOPER Detment: Room: Gender: Female [employer] Claims Examiner: JgDOB: 1945 Requested By: Ovidio Bradford Number: [id number] Reading MD: Ovidio Samayoa MeasurementsIntervals Olive Rate: 59 P: -42PR: 212 QRS: 19QRSD: 105 T: 87QT: 428 QTc: 427 Interpretive StatementsSINUS BRADYCARDIA WITH FIRST DEGREE AV BLOCKLOW QRS VOLTAGE IN PRECORDIAL LEADS POSSIBLE ANTERIOR MYOCARDIAL INFARCTION , OF INDETERMINATE AGEINFERIOR MYOCARDIAL INFARCTION , PROBABLY OLDABNORMAL ECGReviewed by Comed to ECG 09/01/2018 09:14:54Low QRS voltage now presentSinus rhythm no longer presentMyocardial infarct finding still present X-Ray Chest 1 View Laboratory: [facility] Diagnostic Portable (Pending) Imaging [address] [facility] 31-Oct-2018 11:44 X-Ray Chest 1 VW Portable (CXR1P) [facility], [place] [phone] XRay Report Patient: IRVIN COOPER Admit Date: 10/31/18 MR#: [id number] Address1: [place] Acct ID:[id number] Address2: [place] Date: 1945 [facility] Zip: [place] [address] Age: 73 Location: ED Sex: F Room/Bed: Att Phy: Diagnosis: WEAKNESS Yesenia Phy: Cinthia Rhoades MD Service Da te: 10/31/18 Fam Phy: Interpreting Phy: Epifanio melendez MD Admit Phy: Ordering Phy: TEMP,ED cc: XR chest 1V portable HISTORY: Atypical chest pain COMPARISON: Chest 10/08/2018. FINDINGS: No pneumothorax. No pleural effusions. The heart remains enlarged. There are bibasilar linear densities which are not significantly changed. No new focal lung consolidations. There is mild central pulmonary vascular congestion without overt edema. IMPRESSION: 1. No significant change compared the prior study. 2. Bibasilar linear densities are nonspecific but favor scarring or atelectasis 3. No change in the cardiomegaly and mild congestive change. Electronically signed by: Epifanio Acuña M.D. 10/31/2018 11:45 AM Dictated: 10/31/18 1144 Transcribed: 10/31/18 1144 Troponin I (Pending) Laboratory: [facility] Laboratory [address] [facility] [address] tel: 31-Oct-2018 19:23 TROPONIN (cTnI) < 0.015 ng/ml Range: 0- 0.045 ng/ml CBC With DIFF (Pending) Laboratory: [facility] Laboratory [address] [facility] [address] tel: 01-Nov-2018 1:09 WBC 9.83 K/uL Range: 4.8-10.8 K/u L RBC 4.46 {M/uL} Range: 4.2-5.4 M/uL HEMOGLOBIN 12.2 g/dL Range: 12.0-16.0 g /dL HEMATOCRIT 37.2 % Range: 37-47 % MCV 83.4 fL Range: 80-100 fL MCH 27.4 pg Range: 25-34 pg MEAN CORPUSCULAR HGB CONC 32.8 Range: 3 2-36 g/dL g/dL RED CELL DISTRIBUTION WIDTH SD Range: 3 6.4-46.3 fL 46.8 fL (above high threshold) RED CELL DISTRIBUTION WIDTH CV Range: 1 1.5-14.5 % 15.2 % (above high threshold) PLATELET COUNT 184 K/uL Range: 130-400 K/uL MEAN PLATELET VOLUME 9.7 fL Range: 7.4- 10.4 fL NEUT % 64.4 % Range: % LYMPH % 23.7 % Range: % MONO % 8.1 % Range: % EOS % 3.1 % Range: % BASO % 0.5 % Range: % IG% 0.2 % Range: % Comments: IG paramet er reflects the combination of Metas, Myelos andPromyelocytes. Neutrophils (Auto) 6.33 K/uL Range: 1. 4-6.5 K/uL LYMPH ABS # 2.33 K/uL Range: 1.2-3.4 K/ uL MONO ABS # 0.80 K/uL (above high Range: 0.11-0.59 K/uL threshold) EOS ABS # 0.30 K/uL Range: 0-0.5 K/uL BASO ABS # 0.05 K/uL Range: 0-0.2 K/uL IG# 0.02 K/uL Range: 0.00-0.02 K/ uL Basic Metabolic Panel Laboratory: [facility] Laboratory [address] (Pending) [address] [place] [facility] [address] tel: 01-Nov-2018 1:09 SODIUM 140 mmol/L Range: 136-145 mmol /L POTASSIUM 3.8 mmol/L Range: 3.5-5.1 mmo l/L CHLORIDE 107 mmol/L Range: 98-107 mmol/ L CARBON DIOXIDE 27 mmol/L Range: 21-32 m mol/L ANION GAP 6.0 Range: 3-11 BLOOD UREA NITROGEN 25 mg/dl Range: 7-1 8 mg/dl (above high threshold) CREATININE 1.28 mg/dl (above high Range: 0.6-1.2 mg/dl threshold) Estimated Creatinine Clearance Range: m l/min 40.1 ml/min Comments: Est. Creat inine Clearance (Mod Cockcroft-Gault) for pharmacydosing purposes. Estimated GFR () Comment s: Units: ml/min per 47.7 1.73 meters squaredT he estimated GFR (CKD-E PI equation) has not be en validatedfor inpatie nt settings and may not be an accurate reflectiono f renal function in critical ly ill patients or those withrapidly changing renal function (e.g. MARIAH). Estimated GFR (Non- Comments: Uni ts: ml/min per [place]) 41.1 1.73 meters squaredT he estimated GFR (CKD-E PI equation) has not be en validatedfor inpatie nt settings and may not be an accurate reflectiono f renal function in critical ly ill patients or those withrapidly changing renal function (e.g. MARIAH). BUN/CREATININE RATIO 19.6 Range: 10-20 GLUCOSE 148 mg/dl (above high Range: 70 -99 mg/dl threshold) CALCIUM 8.4 mg/dl (below low Range: 8.5 -10.1 mg/dl threshold) Troponin I (Pending) Laboratory: [facility] Laboratory [address] [facility] [address] tel: 01-Nov-2018 1:09 TROPONIN (cTnI) < 0.015 ng/ml Range: 0- 0.045 ng/ml CT Angio Abdomen W Laboratory: [facility] Diagnostic Contrast Imaging [address] [facility] 01-Nov-2018 9:42 CT ANGIO ABDOMEN W CONTR [facility], [place] [phone] CT Scan Report Patient: IRVIN COOPER Admit Date: 10/31/18 MR#: [id number] Address1: [address] [place] [address] Acct ID:[id number] Address2: [address] Date: 1945 [facility] Zip: [place] [address] Age: 73 Location: 2S Sex: F Room[facility]Bed: [facility] Att Phy: Asher Sellers M.D. Diagnosis: C HEST PAIN R/O ACS Yesenia Phy: Cinthia Rhoades MD Service Da te: 11/01/18 Fam Phy: Interpreting Phy: Nehemias Alfaro MD Admit Phy: Janina Lozano D.O. Ordering Phy: Guy Link MD cc: Study: CT angiogram of the renal arteries HISTORY: Hypertension. Abnormal renal arterial Doppler FINDINGS: Considerable atherosclerotic change of the abdominal aorta. No evidence for aneurysm. Atherosclerotic change of the abdominal and mesenteric arterial vasculature. 50% narrowing of the mid superior mesenteric artery. 70% narrowing proximal right renal artery at its origin. 30% narrowing left renal artery. IMPRESSION: 1. 70% narrowing proximal right renal artery. 2. 30% narrowing by several left renal artery.. 3. 50% narrowing mid superior mesenteric artery. 4. Significant atherosclerotic change abdominal aorta. Electronically signed by: Nehemias Alfaro M.D. 11/01/2018 9:47 AM Dictated: 11/01/18941 Transcribed: 11/01/18941 Vital Signs 20-Oct-2018 10:45 Systolic 140 mm[Hg] Comments: Location: LUE; Position: Sitting Diastolic 74 mm[Hg] Comments: Location: LUE; Position: Sitting Weight 190.1 lb Heart Rate 58 /min Comments: Location: L Radial; BMI Calculated 33.67 kg/m2 BSA Calculated 1.89 m2 18-Oct-2018 15:25 Systolic 180 mm[Hg] Comments: Location: LUE; Position: Sitting Diastolic 68 mm[Hg] Comments: Location: LUE; Position: Sitting Weight 191.4 lb Heart Rate 72 /min Comments: Location: L Radial; BMI Calculated 33.91 kg/m2 BSA Calculated 1.9 m2 17-Oct-2018 11:27 Systolic 172 mm[Hg] Diastolic 68 mm[Hg] Weight 190 lb Heart Rate 56 /min BMI Calculated 33.66 kg/m2 BSA Calculated 1.89 m2 Height 63 in O2 Saturation 97 % Respiration 16 /min Encounters Appointment; Ovidio Samayoa M.D. 20-Oct-2018 10:45 Encounter Diagnosis: Problem not documented Appointment; Guy Lee M.D. 18-Oct-2018 15:30 Encounter Diagnosis: Problem not documented Appointment; Cinthia Rhoades M.D. 17-Oct-2018 11:30 Encounter Diagnosis: Problem not documented Appointment; Lesley Pham 02-Oct-2018 13:00 Encounter Diagnosis: Problem not documented Appointment; Cinthia Rhoades M.D. 28-Sep-2018 15:00 Encounter Diagnosis: Problem not documented Appointment; Ovidio Samayoa M.D. 01-Sep-2018 10:00 Encounter Diagnosis: Problem not documented Appointment; Cinthia Rhoades M.D. 27-Jun-2018 10:30 Encounter Diagnosis: Problem not documented Appointment; , Nurse 30-Mar-2018 10:00 Encounter Diagnosis: Problem not documented Appointment; Cinthia Rhoades M.D. 23-Mar-2018 15:30 Encounter Diagnosis: Problem not documented Appointment; Ovidio Samayoa M.D. 17-Feb-2018 10:30 Encounter Diagnosis: Problem not documented Appointment; Cinthia Rhoades M.D. 09-Dec-2017 14:00 Encounter Diagnosis: Problem not documented Appointment; Ovidio Samayoa M.D. 04-Nov-2017 10:30 Encounter Diagnosis: Problem not documented Appointment; Cinthia Rhoades M.D. 04-Oct-2017 11:30 Encounter Diagnosis: Problem not documented Appointment; Cinthia Rhoades M.D. 19-Sep-2017 11:30 Encounter Diagnosis: Problem not documented Appointment; Cinthia Rhoades M.D. 26-Jul-2017 10:00 Encounter Diagnosis: Problem not documented Appointment; Izzy Goel PA-C 19-Apr-2017 14:15 Encounter Diagnosis: Problem not documented Appointment; Cinthia Rhoades M.D. 12-Jan-2017 9:15 Encounter Diagnosis: Problem not documented Appointment; Ovidio Samayoa M.D. 02-Mar-2019 10:00 Encounter Diagnosis: Problem not documented
--- NOTE | 2018-11-09 10:14 | Discharge Summary ---
Date of Service November 01, 2018 Admission HPI Per Admitting Provider Jeana Hooks is a pleasant 73yo C female with history of HTN, HLP, DM, CAD s/p stent to LAD 09/2017, right pontine CVA 10/08/18 presenting today with chest pain. Patient states that this AM she was in her kitchen doing dishes. She felt very weak and tired. She sat down to rest for a bit then got up and started doing the dishes again. She then developed substernal chest heaviness with pain radiating into the right neck. Also with palpitations at that time. She denies diaphoresis/SOB/nausea/dizziness. CP was non-pleuritic. Lasted appx 1 hour. She took some liquid cayenne pepper which relieved the discomfort. Patient states that her pain today is similar to when she had her stent placed last September. She denies headache, visual deficit or focal numbness/weakness/tingling. Denies weight gain, worsening edema or orthopnea. She denies chest pain with exertion but does become short of breath with exertion which has gotten worse over the last month. No additional complaints at this time. Patient presently CP free. ER Course: ASA 324mg. Nitro SL and patch Principal Diagnosis Hypertensive urgency Discharge Exam General: patient resting comfortably, NAD, non-toxic in appearance, AA&O x 4 Skin: warm, dry, intact, no rashes or lesions HEENT: NC/AT, PERRL, EOMI, anicteric sclera, conjunctiva without injection, external ear normal to inspection and nontender, nares patent, moist mucus membranes, dentition intact, no oropharyngeal lesions, neck supple, trachea midline, no LAD, no thyromegaly, no JVD Heart: +S1/S2, regular, 3/6 BARBARA at left sternal border with radiation across the precordium to carotids, no r/g Lungs: equal air entry bilaterally, no rhonchi/wheezes, soft crackles in bila teral bases Abd: +BS, soft, NT/ND, no masses/organomegaly/ascites Ext: warm, 2+ pulses in UE/LE bilaterally, no clubbing/cyanosis, trace pitting edema of bilateral LEs Neuro:patient AA&O x 4, speech intact, no facial droop, moving all extremities on command Discharge Data Allergies Allergy/AdvReac Type Severity Reaction Status Date / Time acetaminophen Allergy Unknown . Verified 10/31/18 12:40 propoxyphene AdvReac Unknown Nausea Verified 10/31/18 12:40 UNKNOWN ANITBIOTICS Allergy Unknown . Uncoded 10/31/18 12:40 Consultations 10/31/18 12:52 ED Decision to Admit Stat 10/31/18 14:23 Consult Cardiology Routine Ordered Studies 11/01/18 08:26 CT angio abdomen w con Routine Hospital Course (1) Chest pain: 73 year old female with known CAD s/p stent to LAD, DM, HLP, poorly controlled HTN presenting with CP which is similar in nature to prior cardiac CP. Patient hypertensive. Troponin x 1 negative. EKG with no acute ischemic changes. -Admit to PCU -Trend troponin x 3 sets -Continue Plavix, Carvedilol, Pravastatin, Irbesartan -Nitro PRN -Cardiology consult - patient follows with Dr. Dangelo, appreciate assistance with this case Cardio input: Chest pain: Her chest pain on presentation was quite atypical, she has not had symptoms suggesting angina and her enzymes were negative. I would not pursue further. Atrial fibrillation: She has a history of atrial fibrillation but on her current medical regimen her rhythm is very well controlled. She should remain on anticoag ulation however. . (2) Hypertension: Patient with poorly controlled hypertension. She has stable CKD, GFR=41.9, K=3.7. Renal ultrasound performed on 10/10/18 suggests unilateral right sided renal artery stenosis. Findings were discussed with patient during a followup appointment with Dr. Lee on 18 October. Note states that patient wishes to pursue CTA for additional workup. -Continue Carvedilol, Irbesartan, HCTZ -Consider inpatient CTA of renal arteries after acute issue of CP has resolved (will not order this study yet). VS scheduling this study on discharge. Patient wishes for this matter to be addressed. -Monitor renal function and electrolytes -Continue to monitor BP - Labetalol IV PRN During hospital stay, her bP remained elevated. Will add hydralazine at discharge. Patient agreed with plan. (3) Diabetes: Blood sugar presently 108. HgAIC=7.9 on 10/08/18 -Patient is scheduled to receive her Trulicity injection today -Hold Metformin and Glipizide -Lantus 7 u BID -ISS (4) Hyperlipidemia: Chronic -Continue statin (5) Chronic kidney disease, stage 3a: Stable BUN and Cr, adequate UOP, electrolytes WNL. -Continue to monitor BUN, Cr, electrolytes and UOP -Avoid nephrotoxic agents (6) GERD (gastroesophageal reflux disease): Well controlled -Continue Ranitidine (7) Renal artery atherosclerosis: Imaging confirmed this. Patient will be discharged and have stenting done as an outpatient. (8) Atrial fibrillation: Patient presently in NSR at 63bpm. Anticoagulated with Eliquis -Continue Diltiazem 120mg po BID -Continue Eliquis -Continue Flecainide F/E/N - [place]. Electrolytes WNL. Continue PO K supplement 10mEq daily, monitor BMP, CC/Heart healthy diet as tolerated Ppx - Patient anticoagulated with Eliquis Code - Full Dispo -Observation to PCU Total Time Total Time Spent Total Time Spent (In Minutes): 32 Total Time Includes: Examination of the Patient, Discharge Planning and Medication Reconciliation Discharge Plan Discharge Items Patient Disposition: Home - Self-Care Reason For Visit: CHEST PAIN R/O ACS Discharge Diagnosis: Renal artery stenosis Discharge Goals: Decrease discomfort Activity: Resume your previous activity Non-emergency contact: Primary Care Provider Call non-emergency contact if: you have any medication questions Follow-up/Referrals: Cinthia Rhoades MD [Primary Care Provider] - Diet: Carb Consistent or DM2 Addtl Provider Instructions: Followup with PCP in 1-2 weeks [place] with Cardiology: Uriel Lee for renal artery stenosis procedure Prescriptions: New hydralazine 10 mg Tablet 10 mg PO QID Qty: 120 RF: 0 Continued metformin 500 mg tablet 500 mg PO BIDM RF: 0 carvedilol 12.5 mg tablet 12.5 mg PO BID RF: 0 pravastatin 40 mg tablet 40 mg PO HS RF: 0 diltiazem HCl 240 mg capsule,extended release 24hr 120 mg PO BID RF: 0 glipizide 10 mg tablet 10 mg PO BID RF: 0 clopidogrel 75 mg tablet 75 mg PO DAILY RF: 0 cyanocobalamin (vitamin B-12) 500 mcg Tablet 500 mcg PO PM RF: 0 ranitidine HCl 150 mg tablet 150 mg PO BID RF: 0 flecainide 100 mg tablet 100 mg PO BID RF: 0 nitroglycerin 0.4 mg Tablet, Sublingual 0.4 mg sublingual DIRECTED PRN (Reason: Chest Pain) RF: 0 hydrochlorothiazide 25 mg tablet 25 mg PO QAM RF: 0 furosemide 20 mg tablet 20 mg PO DIRECTED PRN (Reason: Edema) RF: 0 irbesartan 300 mg tablet 150 mg PO BID RF: 0 garlic 400 mg Tablet 400 mg PO DAILY RF: 0 potassium chloride 10 mEq tablet,ER particles/crystals 10 meq PO DAILY RF: 0 Eliquis 5 mg tablet 5 mg PO BID RF: 0 Trulicity 0.75 mg/0.5 mL Pen Injector SUBCUT WK RF: 0 No Action aspirin [Aspir-81] 81 mg Tablet,Delayed Release (Dr/Ec) 81 mg PO DAILY RF: 0 Stand-Alone Forms: [facility] [place] [employer]/Other Patient Handouts: Hypertension Control, Risk Factors High Blood Pressure, Disease Kidney Hypertension Discharge Orders: Discharge Order (Routine); Ordered 11/01/18 Ordered By: Asher Sellers Admission Data Admit Date/Time: 10/31/18 13:28 Attending Provider: Asher Sellers Admit Provider: Janina Lozano Primary Care Provider: Cinthia Rhoades Other Providers: Janina Lozano ; Marc Keith ; Moses Alejandre ; Raudel Geronimo ; Ovidio Samayoa ; Acosta Hale Jr ; Joseph Perales ; Sindy Hutson ; Hermelinda Belol ; Moy Lee ; Moy Link ; Adarsh Hardy ; Miguel Hernández ; Izzy Flores ; Effie Carroll Service: Telemetry Other Interventions: Discharge Summary Assessment (RN) Last Done: 11/01/18 17:21 DC Date/Time DO NOT enter until pt leaves facility: 11/01/18 17:45
== END 2018-11-01 17:45 | disposition home or self-care (01) ==
LOC: 2S 10:26 → ED 10:26 → SUATTDRO 13:28 → 2S 14:18
DX: K21.9 Gastro-esophageal reflux disease without esophagitis; I12.9 Hypertensive chronic kidney disease with stage 1 through stage 4 chronic kidney disease, or unspecified chronic kidney disease; Z88.8 Allergy status to other drugs, medicaments and biological substances; I25.10 Atherosclerotic heart disease of native coronary artery without angina pectoris; I70.1 Atherosclerosis of renal artery; E78.5 Hyperlipidemia, unspecified; Z95.818 Presence of other cardiac implants and grafts; Z86.73 Personal history of transient ischemic attack (TIA), and cerebral infarction without residual deficits; I16.0 Hypertensive urgency; N18.3 Chronic kidney disease, stage 3 (moderate); R07.9 Chest pain, unspecified; E11.9 Type 2 diabetes mellitus without complications; Z79.01 Long term (current) use of anticoagulants; I48.91 Unspecified atrial fibrillation; R53.1 Weakness; Z79.84 Long term (current) use of oral hypoglycemic drugs; Z88.6 Allergy status to analgesic agent